=== PATIENT | male | born 1945 | race Caucasian/White ===

== ENCOUNTER 2017-12-24 13:48 | Emergency (ER) | payer MEDICARE ==
[2017-12-24 13:53] VITALS: RESP 18
--- NOTE | 2017-12-24 14:42 | ED ---
General Adult HPI - General Chief complaint: Skin/Abscess/Foreign Body Stated complaint: Male Time Seen by Provider: 12/24/17 13:54 Source: patient, RN notes reviewed, old records reviewed Mode of arrival: ambulatory Limitations: no limitations - History of Present Illness Initial comments: this patient is a 72-year-old male chief complaint of a rash over his entire body. He reports it's related to his chemotherapy treatment. His last chemo treatment was approximately three days ago. He states that he was told that he will get this acne like rash after his chemo treatments. Your ports it's become increasingly painful and his groin region. He states that he has noticed some drainage from the skin. - Related Data Home Medications Medication Instructions Recorded Confirmed Ergocalciferol (Vitamin D2) 50,000 unit PO WE 12/24/17 12/24/17 [Vitamin D2] Previous Rx's Medication Instructions Recorded Clindamycin Gel [Clindamycin 1 applic TOPICAL BID #60 gram 12/24/17 Phosphate] Doxycycline [Vibramycin] 100 mg PO Q12HR #28 capsule 12/24/17 Hydrocortisone Cream 1 applic TOPICAL BID #60 gm 12/24/17 [Hydrocortisone 1% Cream] Nystatin 100,000 Unit/gm Oint 1 applic TOPICAL TID #1 tube 12/24/17 [Mycostatin Oint] Nystatin 100,000 Unit/gm Powd 1 applic TOPICAL BID #60 gm 12/24/17 [Mycostatin Powder] Allergies Allergy/AdvReac Type Severity Reaction Status Date / Time No Known Allergies Allergy Verified 12/24/17 14:28 Review of Systems ROS Statement: Those systems with pertinent positive or pertinent negative responses have been documented in the HPI. ROS Other: All systems not noted in ROS Statement are negative. Past Medical History Past Medical History: Cancer Additional Past Medical History / Comment(s): colon, mets to lungs History of Any Multi-Drug Resistant Organisms: None Reported Additional Past Surgical History / Comment(s): 2016 colon cancer Past Anesthesia/Blood Transfusion Reactions: No Reported Reaction Past Psychological History: No Psychological Hx Reported Smoking Status: Former smoker Past Alcohol Use History: None Reported Past Drug Use History: None Reported General Exam - General Exam Comments Initial Comments: Patient is a 72 year old male, no distress. Limitations: no limitations General appearance: alert, in no apparent distress Head exam: Present: atraumatic, normocephalic, normal inspection Eye exam: Present: normal appearance, PERRL, EOMI. Absent: scleral icterus, conjunctival injection, periorbital swelling ENT exam: Present: normal exam, mucous membranes moist Neck exam: Present: normal inspection. Absent: tenderness, meningismus, lymphadenopathy Respiratory exam: Present: normal lung sounds bilaterally. Absent: respiratory distress, wheezes, rales, rhonchi, stridor Cardiovascular Exam: Present: regular rate, normal rhythm, normal heart sounds. Absent: systolic murmur, diastolic murmur, rubs, gallop, clicks GI/Abdominal exam: Present: soft, normal bowel sounds. Absent: distended, tenderness, guarding, rebound, rigid Back exam: Present: normal inspection Neurological exam: Present: alert, oriented X3, CN II-XII intact Psychiatric exam: Present: normal affect, normal mood Skin exam: Present: warm, dry, intact, normal color, rash (acneiform rash over face, arms, and legs. patient has beefy red erythematous rash over grion. Patient has some drainage from groin. Appears similiar to candidial infection. ) Course Vital Signs 12/24/17 12/24/17 13:49 14:49 Temperature 98.7 F 100.3 F H Pulse Rate 107 H 91 Respiratory 18 18 Rate Blood Pressure 159/77 116/55 O2 Sat by Pulse 100 98 Oximetry Medical Decision Making - Medical Decision Making this patient is a 72-year-old male chief complaint of a rash over his entire body. He reports it's related to his chemotherapy treatment, and a side affect is acneiform rash. He has what appears to be yeast infection in groin as well. Wound culture obtained. Patient is on palizumab and this is a common reaction. Patient will be treated with clindamycin cream, nystatin cream and hydrocortizone cream. He has follow up appt with PCP on monday. Discussed follow up and keep skin dry. Return parameters discussed. Disposition Clinical Impression: Acneiform drug eruption Disposition: HOME SELF-CARE Condition: Good Instructions: Acute Rash (ED) Additional Instructions: Follow-up on Monday with Yadi Montaño. Patient should use the antibiotic clindamycin and the steroid cream as directed. He should also plan to use the antifungal powder within the groin as well as using ointment. Return to the emergency department if any alarming signs or symptoms occur. Prescriptions: Clindamycin Gel [Clindamycin Phosphate] 1 applic TOPICAL BID #60 gram Doxycycline [Vibramycin] 100 mg PO Q12HR #28 capsule Hydrocortisone Cream [Hydrocortisone 1% Cream] 1 applic TOPICAL BID #60 gm Nystatin 100,000 Unit/gm Oint [Mycostatin Oint] 1 applic TOPICAL TID #1 tube Nystatin 100,000 Unit/gm Powd [Mycostatin Powder] 1 applic TOPICAL BID #60 gm Referrals: Pato Robb MD [Primary Care Provider] - 1-2 days Time of Disposition: 14:37
[2017-12-24 14:50] VITALS: BP 116/55; PULSE 91; TEMP 100.3
== END 2017-12-24 14:50 | disposition home or self-care (01) ==
LOC: EC 13:48
DX: L27.0 Generalized skin eruption due to drugs and medicaments taken internally (principal); T45.1X5A Adverse effect of antineoplastic and immunosuppressive drugs, initial encounter; C78.02 Secondary malignant neoplasm of left lung; C78.01 Secondary malignant neoplasm of right lung; Z87.891 Personal history of nicotine dependence; Z79.899 Other long term (current) drug therapy; Z85.038 Personal history of other malignant neoplasm of large intestine; Z98.890 Other specified postprocedural states
CPT/HCPCS: 87070; 87205; 99284

== ENCOUNTER 2018-04-13 16:46 | Inpatient (IN) | payer MEDICARE ==
[2018-04-13 17:49] LABS: Creatine Kinase 44 U/L (55-170); INR 1.2 (<1.2); Partial Thromboplastin Time 24.8 sec (22.0-30.0); Prothrombin Time 11.1 sec (9.0-12.0)
--- NOTE | 2018-04-13 17:50 | ED ---
General Adult HPI - General Chief complaint: Syncope Stated complaint: SYNCOPE Time Seen by Provider: 04/13/18 17:16 Source: patient, RN notes reviewed, old records reviewed Mode of arrival: wheelchair Limitations: no limitations - History of Present Illness Initial comments: 73-year-old male presents for fever and multiple syncopal episodes. Patient is currently being treated for metastatic colon cancer. Last chemotherapy was approximately 2 weeks ago. He states he passed out 3 or 4 times today. He has felt lightheaded. No chest pain or shortness of breath. No cough. No nausea or vomiting. He has had some diarrhea. He is told to take an antibiotic for prophylaxis of urinary tract infection as he did have a cystoscopy approximately 2 days ago. He has not taken this medication. Patient denies any pain complaints the time my evaluation. He does report fever and chills. - Related Data Home Medications Medication Instructions Recorded Confirmed Tamsulosin HCl [Flomax] 0.4 mg PO BID 03/23/18 04/13/18 Ciprofloxacin HCl [Cipro] 250 mg PO Q12HR 04/13/18 04/13/18 Allergies Allergy/AdvReac Type Severity Reaction Status Date / Time No Known Allergies Allergy Verified 04/13/18 17:29 Review of Systems ROS Statement: Those systems with pertinent positive or pertinent negative responses have been documented in the HPI. ROS Other: All systems not noted in ROS Statement are negative. Past Medical History Past Medical History: Cancer Additional Past Medical History / Comment(s): colon, mets to lungs. Pt. presently has indwelling catheter as of 03-29-18 History of Any Multi-Drug Resistant Organisms: None Reported Additional Past Surgical History / Comment(s): 2016 colon cancer Past Anesthesia/Blood Transfusion Reactions: No Reported Reaction Past Psychological History: No Psychological Hx Reported Smoking Status: Former smoker Past Alcohol Use History: None Reported Past Drug Use History: None Reported General Exam Limitations: no limitations General appearance: alert, in no apparent distress Head exam: Present: atraumatic, normocephalic Eye exam: Present: normal appearance, PERRL ENT exam: Present: mucous membranes dry Neck exam: Present: normal inspection. Absent: tenderness, meningismus Respiratory exam: Present: normal lung sounds bilaterally. Absent: respiratory distress Cardiovascular Exam: Present: normal rhythm, tachycardia GI/Abdominal exam: Present: soft. Absent: distended, tenderness, guarding Extremities exam: Present: normal inspection, full ROM, normal capillary refill. Absent: pedal edema, calf tenderness Neurological exam: Present: alert, oriented X3, CN II-XII intact. Absent: motor sensory deficit Psychiatric exam: Present: normal affect, normal mood Skin exam: Present: warm, dry, intact. Absent: cyanosis, diaphoretic Course Vital Signs 04/13/18 04/13/18 04/13/18 17:09 18:08 19:08 Temperature 102.6 F H 101.6 F H Pulse Rate 115 H 105 H 84 Respiratory 18 20 18 Rate Blood Pressure 110/63 144/70 95/57 O2 Sat by Pulse 97 99 98 Oximetry 04/13/18 20:00 Temperature 100.4 F H Pulse Rate 70 Respiratory 16 Rate Blood Pressure 103/56 O2 Sat by Pulse 98 Oximetry Medical Decision Making - Medical Decision Making 73-year-old male with syncopal episodes likely secondary to hypotension from infection. Patient is febrile and tachycardic on initial presentation. He is currently on chemotherapy. Laboratory studies obtained, there is leukocytosis at 13.3, hemoglobin prior 0.2. CMP is unremarkable. Urinalysis is positive for UTI. Chest x-ray negative for focal pneumonia. Given the patient's current medical problems and the fact that he is on chemo, he will be For IV antibiotics awaiting blood culture and urine culture. - Lab Data Result diagrams: 04/13/18 17:28 04/13/18 17:28 Lab Results 04/13/18 04/13/18 04/13/18 Range/Units 17:28 17:28 17:28 WBC 13.3 H (3.8-10.6) k/uL RBC 4.03 L (4.30-5.90) m/uL Hgb 12.2 L (13.0-17.5) gm/dL Hct 36.8 L (39.0-53.0) % MCV 91.3 (80.0-100.0) fL MCH 30.2 (25.0-35.0) pg MCHC 33.1 (31.0-37.0) g/dL RDW 15.0 (11.5-15.5) % Plt Count 227 (150-450) k/uL Neutrophils % 90 % Lymphocytes % 4 % Monocytes % 5 % Eosinophils % 0 % Basophils % 0 % Neutrophils # 12.0 H (1.3-7.7) k/uL Lymphocytes # 0.5 L (1.0-4.8) k/uL Monocytes # 0.6 (0-1.0) k/uL Eosinophils # 0.0 (0-0.7) k/uL Basophils # 0.0 (0-0.2) k/uL PT (9.0-12.0) sec INR (<1.2) APTT (22.0-30.0) sec Sodium 137 (137-145) mmol/L Potassium 3.5 (3.5-5.1) mmol/L Chloride 101 (98-107) mmol/L Carbon Dioxide 22 (22-30) mmol/L Anion Gap 14 mmol/L BUN 12 (9-20) mg/dL Creatinine 1.10 (0.66-1.25) mg/dL Est GFR (CKD-EPI)AfAm 77 (>60 ml/min/1.73 sqM) Est GFR (CKD-EPI)NonAf 66 (>60 ml/min/1.73 sqM) Glucose 112 H (74-99) mg/dL Plasma Lactic Acid Vamsi (0.7-2.0) mmol/L Calcium 8.9 (8.4-10.2) mg/dL Magnesium 1.3 L (1.6-2.3) mg/dL Total Bilirubin 1.1 (0.2-1.3) mg/dL AST 43 (17-59) U/L ALT 55 (21-72) U/L Alkaline Phosphatase 194 H (38-126) U/L Total Creatine Kinase 44 L (55-170) U/L CK-MB (CK-2) 0.3 (0.0-2.4) ng/mL CK-MB (CK-2) Rel Index 0.7 Troponin I <0.012 (0.000-0.034) ng/mL Total Protein 6.2 L (6.3-8.2) g/dL Albumin 3.7 (3.5-5.0) g/dL Urine Color Urine Appearance (Clear) Urine pH (5.0-8.0) Ur Specific [place] (1.001-1.035) Urine Protein (Negative) Urine Glucose (UA) (Negative) Urine Ketones (Negative) Urine Blood (Negative) Urine Nitrite (Negative) Urine Bilirubin (Negative) Urine Urobilinogen (<2.0) mg/dL Ur Leukocyte Esterase (Negative) Urine WBC (0-5) /hpf Urine WBC Clumps (None) /hpf Urine Bacteria (None) /hpf Urine Mucus (None) /hpf 04/13/18 04/13/18 04/13/18 Range/Units 17:28 17:28 18:03 WBC (3.8-10.6) k/uL RBC (4.30-5.90) m/uL Hgb (13.0-17.5) gm/dL Hct (39.0-53.0) % MCV (80.0-100.0) fL MCH (25.0-35.0) pg MCHC (31.0-37.0) g/dL RDW (11.5-15.5) % Plt Count (150-450) k/uL Neutrophils % % Lymphocytes % % Monocytes % % Eosinophils % % Basophils % % Neutrophils # (1.3-7.7) k/uL Lymphocytes # (1.0-4.8) k/uL Monocytes # (0-1.0) k/uL Eosinophils # (0-0.7) k/uL Basophils # (0-0.2) k/uL PT 11.1 (9.0-12.0) sec INR 1.2 H (<1.2) APTT 24.8 (22.0-30.0) sec Sodium (137-145) mmol/L Potassium (3.5-5.1) mmol/L Chloride (98-107) mmol/L Carbon Dioxide (22-30) mmol/L Anion Gap mmol/L BUN (9-20) mg/dL Creatinine (0.66-1.25) mg/dL Est GFR (CKD-EPI)AfAm (>60 ml/min/1.73 sqM) Est GFR (CKD-EPI)NonAf (>60 ml/min/1.73 sqM) Glucose (74-99) mg/dL Plasma Lactic Acid Vamsi 1.0 (0.7-2.0) mmol/L Calcium (8.4-10.2) mg/dL Magnesium (1.6-2.3) mg/dL Total Bilirubin (0.2-1.3) mg/dL AST (17-59) U/L ALT (21-72) U/L Alkaline Phosphatase (38-126) U/L Total Creatine Kinase (55-170) U/L CK-MB (CK-2) (0.0-2.4) ng/mL CK-MB (CK-2) Rel Index Troponin I (0.000-0.034) ng/mL Total Protein (6.3-8.2) g/dL Albumin (3.5-5.0) g/dL Urine Color Yellow Urine Appearance Cloudy (Clear) Urine pH 6.0 (5.0-8.0) Ur Specific [place] 1.009 (1.001-1.035) Urine Protein Trace H (Negative) Urine Glucose (UA) Negative (Negative) Urine Ketones Negative (Negative) Urine Blood Moderate H (Negative) Urine Nitrite Negative (Negative) Urine Bilirubin Negative (Negative) Urine Urobilinogen <2.0 (<2.0) mg/dL Ur Leukocyte Esterase Large H (Negative) Urine WBC >182 H (0-5) /hpf Urine WBC Clumps Moderate H (None) /hpf Urine Bacteria Many H (None) /hpf Urine Mucus Rare H (None) /hpf Disposition Clinical Impression: Sepsis, UTI (urinary tract infection), Dehydration Disposition: ADMITTED IP TO THIS [facility] Condition: Stable Is patient prescribed a controlled substance at d/c from ED?: No Referrals: Ptao Robb MD [Primary Care Provider] - 1-2 days Decision to Admit Reason: Admit from EC Decision Date: 04/13/18 Decision Time: 20:23
[2018-04-13 17:51] LABS: Albumin 3.7 g/dL (3.5-5.0); Calcium 8.9 mg/dL (8.4-10.2); Magnesium 1.3 mg/dL (1.6-2.3); Potassium 3.5 mmol/L (3.5-5.1); Total Bilirubin 1.1 mg/dL (0.2-1.3); Total Protein 6.2 g/dL (6.3-8.2)
[2018-04-13] MEDS ORDERED: ACETAMINOPHEN TAB 500 MG TAB PO STA (17:51)
[2018-04-13] MEDS ORDERED: SODIUM CHLORIDE 0.9% 1,000 ML IV ONE (17:51)
--- NOTE | 2018-04-13 17:57 | XR ---
EXAMINATION TYPE: XR chest 2V DATE OF EXAM: 04/13/2018 COMPARISON: NONE HISTORY: Fever and syncope TECHNIQUE: Frontal and lateral views of the chest are obtained. FINDINGS: Heart and mediastinum are normal. Lungs are clear. Diaphragm is normal. There is right guera tral venous catheter with tip in the superior vena cava. There are chest leads. Bony thorax shows 25% anterior wedging of T6 vertebra. IMPRESSION: No active cardiopulmonary disease. I see no evidence of bronchopneumonia.
[2018-04-13 17:58] LABS: Basophils % (A) 0 %; Eosinophils % (A) 0 %; HCT 36.8 % (39.0-53.0); HGB 12.2 gm/dL (13.0-17.5); Lymphocytes # (A) 0.5 k/uL (1.0-4.8); Lymphocytes % (A) 4 %; MCH 30.2 pg (25.0-35.0); MCHC 33.1 g/dL (31.0-37.0); MCV 91.3 fL (80.0-100.0); Mean Platelet Volume 6.9; Monocytes # (A) 0.6 k/uL (0-1.0); Monocytes % (A) 5 %; Neutrophils % (A) 90 %; Platelet Count 227 k/uL (150-450); RBC 4.03 m/uL (4.30-5.90); WBC 13.3 k/uL (3.8-10.6)
[2018-04-13 18:11] LABS: Creatine Kinase MB 0.3 ng/mL (0.0-2.4); Troponin I <0.012 ng/mL (0.000-0.034)
[2018-04-13 18:52] LABS: Appearance,Urine Cloudy (Clear); Bacteria,Urine Many /hpf; Bilirubin,Urine Negative (Negative); Blood,Urine Moderate (Negative); Color,Urine Yellow; Glucose,Urine (UA) Negative (Negative); Ketones,Urine Negative (Negative); Leukocyte Esterase,Urine Large (Negative); Mucus,Urine Rare /hpf; Nitrite,Urine Negative (Negative); Protein,Urine Trace (Negative); Specific Gravity,Urine 1.009 (1.001-1.035); Urobilinogen,Urine <2.0 mg/dL (<2.0); WBC,Urine >182 /hpf (0-5)
[2018-04-13] MEDS ORDERED: SODIUM CHLORIDE 0.9% 500 ML IV ONE (19:50)
[2018-04-13] MEDS ORDERED: MAGNESIUM SULFATE-D5W PMX 1 GM in DEXTROSE/WATER 1 100ML.BAG IVPB ONE (19:50)
[2018-04-13] MEDS ORDERED: cefTRIAXone IN SWFI 1,000 MG/10 ML SYRINGE IVP STA (19:52)
[2018-04-13] MEDS ORDERED: MORPHINE SULFATE 4 MG/ML SYRINGE IV PRN (20:19)
[2018-04-13] MEDS ORDERED: ONDANSETRON 4 MG/2 ML VIAL IVP PRN (20:19)
[2018-04-13] MEDS ORDERED: ACETAMINOPHEN TAB 325 MG TAB PO PRN (20:19)
[2018-04-13] MEDS ORDERED: NALOXONE 0.4 MG/ML 1 ML VIAL IV PRN (20:19)
[2018-04-13] MEDS ORDERED: ALPRAZolam 0.25 MG TAB PO PRN (21:17)
[2018-04-13] MEDS ORDERED: HYDROcodone/APAP 5-325MG 1 EACH TAB PO PRN (21:17)
[2018-04-13] MEDS ORDERED: TEMAZEPAM 15 MG CAP PO PRN (21:17)
--- NOTE | 2018-04-13 22:00 | HP ---
HISTORY AND PHYSICAL CHIEF COMPLAINT: Syncope. HISTORY OF PRESENT ILLNESS: This 73-year-old gentleman with advanced colon cancer with metastases and also indwelling Koehler catheter is receiving chemotherapy from Dr. Pyle. Apparently the chemotherapy could not be done today because of the increased WBC. Patient was running fever. Patient has repeated falls. Because of multiple falls, the patient was taken to [facility] and admitted for further evaluation and treatment. There is no history of any headache. No history of any chest pain or palpitation at this time. PAST MEDICAL HISTORY: 1. Colon cancer with metastases, on chemotherapy. 2. History of urinary retention. MEDICATIONS: 1. Cipro 250 mg b.i.d. 2. Flomax 0.4 b.i.d. ALLERGIES: NONE. FAMILY HISTORY: No history of heart disease or strokes in the family. SOCIAL HISTORY: Previous history of smoking. No history of alcohol intake. REVIEW OF SYSTEMS: ENT: Diminished hearing. Diminished vision. CARDIOVASCULAR SYSTEM: No angina, palpitations. RESPIRATORY SYSTEM: No cough, hemoptysis. GI: No nausea, vomiting. : As mentioned earlier. NERVOUS SYSTEM: As mentioned earlier. ALLERGY/IMMUNOLOGY: No asthma, hayfever. MUSCULOSKELETAL: As mentioned earlier. HEMATOLOGY/ONCOLOGY: As mentioned earlier. ENDOCRINE: No history of diabetes, hypothyroidism. CONSTITUTIONAL: As mentioned earlier. DERMATOLOGY: Negative. RHEUMATOLOGY: Negative. PSYCHIATRY: As mentioned earlier. PHYSICAL EXAMINATION: Alert, oriented x3. Pulse 70, blood pressure 103/56, respiration 16, temperature 100.4, pulse ox 98% on 2 L. HEENT: Conjunctivae normal. Oral mucosa moist. NECK: No jugular venous distention. No carotid bruit. No lymph node enlargement. CARDIOVASCULAR SYSTEM: S1, S2 muffled. No S3. No S4. RESPIRATORY SYSTEM: Breath sounds diminished at the bases. A few scattered rhonchi and crackles. ABDOMEN: Soft, non-tender. No mass palpable. LEGS: No edema. No swelling. NERVOUS SYSTEM: Higher functions as mentioned earlier. Moves all 4 limbs. No focal motor or sensory deficit. LYMPHATICS: No lymph node palpable in neck, axillae or groin. SKIN: No ulcer, rash, bleeding. LABS: WBC 13.3, hemoglobin 12.2, and magnesium is 1.3. UA noted. The chest x-ray was reviewed and showed no acute abnormality. ASSESSMENT: 1. Acute urinary tract infection with sepsis secondary to indwelling Koehler catheter. 2. Increased white count. 3. Colon cancer with metastases. 4. Indwelling Koehler catheter. 5. Anemia, normocytic; anemia of chronic disease. 6. Hypomagnesemia. 7. FULL CODE. RECOMMENDATIONS AND DISCUSSION: In this 73-year-old gentleman who presented with multiple complex medical issues, we will monitor the patient closely, continue the current medications, continue with symptomatic treatment. Will initiate the patient on Rocephin. Obtain cultures. Resume the DVT prophylaxis. Proton pump inhibitors. Resume home medications. Guarded prognosis because of multiple complex medical issues. Dr. Pyle will be consulted. Further recommendations to follow. MMODL / IJN: [id number] /
[2018-04-13] MEDS: SODIUM CHLORIDE 0.9% 1,000 ML IV SCH (22:04)
[2018-04-14 07:21] LABS: ALT 44 U/L (21-72); AST 25 U/L (17-59); Albumin 2.8 g/dL (3.5-5.0); Alkaline Phosphatase 145 U/L (38-126); Anion Gap 11 mmol/L; Blood Urea Nitrogen 9 mg/dL (9-20); Calcium 8.3 mg/dL (8.4-10.2); Carbon Dioxide 22 mmol/L (22-30); Chloride 110 mmol/L (98-107); Glucose 92 mg/dL (74-99); Potassium 3.4 mmol/L (3.5-5.1); Sodium 143 mmol/L (137-145); Total Bilirubin 1.3 mg/dL (0.2-1.3)
[2018-04-14 07:32] LABS: Basophils % (A) 0 %; Eosinophils % (A) 0 %; HCT 33.6 % (39.0-53.0); HGB 10.9 gm/dL (13.0-17.5); Lymphocytes # (A) 1.1 k/uL (1.0-4.8); Lymphocytes % (A) 11 %; MCH 30.5 pg (25.0-35.0); MCHC 32.4 g/dL (31.0-37.0); MCV 94.2 fL (80.0-100.0); Mean Platelet Volume 6.6; Monocytes # (A) 0.6 k/uL (0-1.0); Monocytes % (A) 6 %; Neutrophils # (A) 8.1 k/uL (1.3-7.7); Neutrophils % (A) 81 %; Platelet Count 185 k/uL (150-450); RBC 3.57 m/uL (4.30-5.90); RDW 15.2 % (11.5-15.5); WBC 10.1 k/uL (3.8-10.6)
[2018-04-14] MEDS: cefTRIAXone IN SWFI 1,000 MG/10 ML SYRINGE IVP SCH (08:21)
[2018-04-14] MEDS: PANTOPRAZOLE 40 MG TABLET PO SCH (08:21)
[2018-04-14] MEDS: HEPARIN SODIUM,PORCINE 5,000 UNIT/ML 1 ML VIAL SQ SCH ×2 (08:22→21:40)
[2018-04-14] MEDS: SODIUM CHLORIDE 0.9% 1,000 ML IV SCH ×2 (10:45→11:12)
[2018-04-14] MEDS ORDERED: Potassium Replacement Protocol 1 EACH MISC MISCELLANE PRN (12:56)
[2018-04-14] MEDS: POTASSIUM CHLORIDE ER 20 MEQ TAB.ER PO SCH ×2 (13:46→14:43)
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
[2018-04-14] MEDS ORDERED: LIDOCAINE-PRILOCAINE 2.5-2.5% CREAM 5 GM TUBE TOPICAL STA (16:46)
--- NOTE | 2018-04-14 18:16 | PN ---
PROGRESS NOTE DATE OF SERVICE: 04/14/2018. This 73-year-old gentleman admitted with syncope, also had a UTI with sepsis secondary to a Koehler catheter. Patient on broad-spectrum IV antibiotics. The patient also had metastatic colon cancer. Hematology/Oncology is also following the patient closely. The cultures are negative so far. EXAM: Alert and oriented x3. Pulse 65 blood pressure 140/68, respirations 18, temperature 97.4, pulse ox 100% on room air. HEENT: Conjunctivae normal. NECK: No jugular venous distention. CARDIOVASCULAR: S1, S2 muffled. RESPIRATORY: Breath sounds diminished in the bases. A few scattered rhonchi. ABDOMEN: Soft, nontender. NERVOUS SYSTEM: No focal motor or sensory deficits. LABS: WBC 10, hemoglobin is 10.9. Potassium 3.4. UA noted. ASSESSMENT: 1. Acute urinary tract infection with sepsis secondary to indwelling Koehler catheter. 2. Increased WBC. 3. Hypokalemia. 4. Colon cancer with metastasis. 5. Indwelling Koehler catheter. 6. Anemia, normocytic anemia of chronic disease. 7. Hypomagnesemia. 8. FULL CODE. RECOMMENDATIONS AND DISCUSSION: I recommend to continue current medical management and symptomatic treatment. Otherwise at this time continue with IV antibiotics, follow cultures. Further recommendations to follow. The patient's is also admitted in the hospital at the current time. MMODL / IJN: [id number] /
--- NOTE | 2018-04-14 18:43 | CT ---
EXAMINATION TYPE: CT ChestAbdPelvis wo con DATE OF EXAM: 04/14/2018 COMPARISON: NONE HISTORY: complains of pelvic pressure. History of colon cancer CT DLP: 444.7 mGycm. Automated Exposure Control for Dose Reduction was Utilized. TECHNIQUE: CT scan of the thorax, abdomen and pelvis is performed without IV contrast. FINDINGS: LUNGS: There are numerous bilateral pulmonary nodules scattered throughout all lobes of the lungs. Th e largest of these are seen within the right upper lobe on series 4 image 17 measuring 1.7 x 1.5 cm a nd the largest in the right lower lobe measures 1.1 x 0.9 cm. No focal consolidation or pleural effus ion is seen. Pneumothorax. The tracheobronchial tree is patent. MEDIASTINUM: There are no greater than 1 cm hilar or mediastinal lymph nodes. No pericardial effusi on is seen. Few coronary artery calcifications are present. There is a right-sided MediPort present t erminating in the cavoatrial junction. OTHER: Minimal bilateral retroareolar gynecomastia is seen. There is a very small hiatal hernia prese nt. LIVER/GB: Unenhanced liver is of normal morphology. No discrete hepatic lesions are identified. PANCREAS: No significant abnormality is seen. SPLEEN: No significant abnormality is seen. ADRENALS: No significant abnormality is seen. KIDNEYS/URINARY BLADDER/PROSTATE: There is a 2 mm nonobstructing left upper pole renal calculus. Ther e is mild left hydronephrosis, however no obstructing calculus is seen. Urinary bladder is grossly di stended to the level of the umbilicus and the prostate gland is diffusely heterogenous and enlarged p ossibly relating to bladder outlet obstruction. BOWEL: No significant abnormality is seen. No dilation of large or small bowel. LYMPH NODES: No greater than 1cm abdominal or pelvic lymph nodes are appreciated. OSSEOUS STRUCTURES: There is a grade 1 anterolisthesis of L3 on L4, likely on a degenerative basis. M ild degenerative changes of the lumbosacral junction are seen. There is a grade 1 retrolisthesis of L 5 on S1. OTHER: Diastases recti and a left paracentral small fat filled ventral hernia are noted. IMPRESSION: 1. Numerous bilateral pulmonary nodule within all pulmonary lobes compatible with metastasis with the largest in the right lung apex measuring up to 1.7 x 1.5 cm. 2. Mild left hydroureteronephrosis without visualized obstructing calculus. There may be a nonradiopa que obstructing calculus. Alternatively the urinary bladder is grossly distended and there is diffuse enlargement and heterogeneity of the prostate gland. Therefore or ureteral nephrosis could relate to vesicoureteral reflux and urinary bladder outlet obstruction.
[2018-04-14] MEDS ORDERED: TAMSULOSIN 0.4 MG CAP.ER.24H PO SCH (18:49)
[2018-04-15 06:06] VITALS: RESP 16
[2018-04-15 07:27] LABS: Anion Gap 13 mmol/L; Blood Urea Nitrogen 7 mg/dL (9-20); Calcium 8.7 mg/dL (8.4-10.2); Carbon Dioxide 22 mmol/L (22-30); Chloride 111 mmol/L (98-107); Glucose 93 mg/dL (74-99); Potassium 3.7 mmol/L (3.5-5.1); Sodium 146 mmol/L (137-145)
[2018-04-15] MEDS: PANTOPRAZOLE 40 MG TABLET PO SCH (08:07)
[2018-04-15] MEDS: HEPARIN SODIUM,PORCINE 5,000 UNIT/ML 1 ML VIAL SQ SCH ×2 (08:07→19:43)
[2018-04-15] MEDS: TAMSULOSIN 0.4 MG CAP.ER.24H PO SCH ×2 (08:07→19:43)
[2018-04-15] MEDS: cefTRIAXone IN SWFI 1,000 MG/10 ML SYRINGE IVP SCH (08:07)
--- NOTE | 2018-04-15 17:59 | PN ---
PROGRESS NOTE DATE OF SERVICE: 04/15/2018 INTERVAL HISTORY: This is a 73-year-old gentleman who was admitted with acute urinary tract infection and sepsis secondary to indwelling Koehler catheter. He is improving significantly. No chest pain. No palpitations. No fever. After Flomax, the patient is able to void. The urine culture showing Staph. Final ID is pending at this time. No chest pain. No palpitations. No fever. EXAM: Alert and oriented times three. Pulse 63, blood pressure 102/60, respiration 18, temperature 97.2, pulse ox 100% on room air. EYES: Conjunctivae normal. NECK: No JVD. CARDIAC: Diminished breath sounds at the bases. LUNGS: A few scattered rhonchi. No crackles. Abdomen is soft, nontender. No mass. LEGS: No edema. NEURO: No focal deficits. LABORATORY DATA: WBC 10.9, hemoglobin 10.9, sodium 146 ASSESSMENT: 1. Acute urinary tract infection with sepsis secondary to indwelling Koehler catheter. 2. Increased WBC. 3. Hypokalemia. 4. Colon cancer with mets. 5. Indwelling Koehler catheter with possible BPH. 6. Anemia, normocytic anemia of chronic disease. 7. Hypomagnesemia. 8. Full code. RECOMMENDATIONS: Recommend to continue current management, continue symptomatic treatment. Otherwise, at this time I recommend continue the current antibiotics and await final reports. Guarded prognosis because of multiple complex medical issues. Further recommendations to follow. MMODL / IJN: [id number] /
[2018-04-16 06:31] VITALS: TEMP 97.1
[2018-04-16 07:18] LABS: Anion Gap 11 mmol/L; Blood Urea Nitrogen 5 mg/dL (9-20); Calcium 9.1 mg/dL (8.4-10.2); Carbon Dioxide 25 mmol/L (22-30); Chloride 108 mmol/L (98-107); Glucose 92 mg/dL (74-99); Potassium 3.8 mmol/L (3.5-5.1); Sodium 144 mmol/L (137-145)
[2018-04-16] MEDS: HEPARIN SODIUM,PORCINE 5,000 UNIT/ML 1 ML VIAL SQ SCH (07:36)
[2018-04-16] MEDS: cefTRIAXone IN SWFI 1,000 MG/10 ML SYRINGE IVP SCH (07:37)
[2018-04-16] MEDS: TAMSULOSIN 0.4 MG CAP.ER.24H PO SCH (07:37)
[2018-04-16] MEDS: PANTOPRAZOLE 40 MG TABLET PO SCH (07:37)
[2018-04-16 10:43] VITALS: BP 107/64; PULSE 64
--- NOTE | 2018-04-17 06:22 | DS ---
DISCHARGE SUMMARY DATE OF SERVICE: 04/16/2018 FINAL DIAGNOSES: 1. Acute urinary tract infection with possible sepsis secondary to indwelling Koehler catheter. 2. Increased WBC. 3. Hypokalemia. 4. Colon cancer with METS. 5. Possible benign prostatic hypertrophy. 6. Anemia, normocytic anemia of chronic disease. 7. Hypomagnesemia. 8. FULL CODE. DISCHARGE DISPOSITION: Patient is being discharged in stable condition with guarded prognosis. HISTORY OF PRESENT ILLNESS: This 73-year-old gentleman with a past medical history of multiple medical problems, admitted to the hospital with UTI and sepsis. Patient was treated symptomatically, improved significantly. Culture showed only Staph epi. The white count normalized. On exam, vital signs stable. Cardio system: S1, S2. Abdomen soft. Central nervous system: No focal deficits. DISCHARGE INSTRUCTIONS: 1. Discharge diet is cardiac diet. 2. Activity limited until followup. 3. Follow up with primary physician in 2-3 days. 4. Follow up with the urology as advised. MEDICATIONS: 1. Tylenol 650 q.6h p.r.n. 2. Ceftin 500 mg p.o. b.i.d. for 4 days. 3. Flomax 0.4 b.i.d. Once again, the patient is being discharged in stable condition with guarded prognosis. MMODL / IJN: [id number] /
== END 2018-04-16 11:20 | disposition home or self-care (01) | DRG 698 ==
LOC: SUPCPDRO 16:46 → EC 16:46 → 5ONC 20:20
PROVIDERS: ADMIT Hospitalist; ATTEND Hospitalist
DX: T83.511A Infection and inflammatory reaction due to indwelling urethral catheter, initial encounter (principal); A41.1 Sepsis due to other specified staphylococcus; C78.00 Secondary malignant neoplasm of unspecified lung; Y73.1 Therapeutic (nonsurgical) and rehabilitative gastroenterology and urology devices associated with adverse incidents; N39.0 Urinary tract infection, site not specified; E83.42 Hypomagnesemia; D63.8 Anemia in other chronic diseases classified elsewhere; E87.6 Hypokalemia; E86.0 Dehydration; R29.6 Repeated falls; W19.XXXA Unspecified fall, initial encounter; Z85.038 Personal history of other malignant neoplasm of large intestine; Z87.891 Personal history of nicotine dependence; Z92.21 Personal history of antineoplastic chemotherapy; Z82.5 Family history of asthma and other chronic lower respiratory diseases; Z86.14 Personal history of Methicillin resistant Staphylococcus aureus infection
CPT/HCPCS: 36415; 36591; 71046; 71250; 74176; 80048; 80053; 81001; 82550; 82553; 83605; 83735; 84484; 85025; 85610; 85730; 87040; 87077; 87086; 87186; 93005; 94760; 96361; 96365; 96367; 96375; 99285

== ENCOUNTER → 2018-06-15 | Outpatient (CLI) | payer MEDICARE ==
--- NOTE | 2018-06-15 16:20 | CT ---
EXAMINATION TYPE: CT ChestAbdPelvis w con DATE OF EXAM: 06/15/2018 INDICATION: Colon cancer COMPARISON: 04/14/2018 CT DLP: 1121 mGycm CONTRAST: Performed with Oral Contrast and with IV Contrast, patient injected with 100 mL of Isovue 300. TECHNIQUE: Axial images at 5 mm thick sections. Reconstructed images in the coronal plane. Delayed images through the kidneys. FINDINGS: CT CHEST: Portion of the thyroid visualized is normal. Multiple bilateral lung nodules are scattered through the mid and upper lung sepulveda. Larger periphera l nodule measuring 1.1 cm was present previously and irregular lobular density in the periphery of th e right upper lobe currently measures 1.8 cm. This is estimated to measure 1.6 cm previously. No enlarged mediastinal or hilar adenopathy is evident. Couple of small pretracheal lymph nodes are p resent. The ascending aorta diameter at the level of the main pulmonary artery is 3.4 cm. The main pulmonary artery diameter at the bifurcation is 2.[address] ABDOMEN: Liver: Normal Spleen: Normal Pancreas: Normal Adrenal glands: The adrenal glands are normal. Gallbladder: Normal Kidneys: No masses are evident. No hydronephrosis is present. No cysts are present. Delayed images were obtained through the kidneys, which remain unremarkable. Aorta: Vascular calcification is within the aorta. Inferior vena cava: Normal. CT PELVIS: Loops of bowel within the abdomen and pelvis are normal. There are loops of bowel which are incom pletely distended or lack oral contrast limiting their evaluation. Appendix: Not clearly visualized. What may be the appendix near the cecum is nondilated and contains contrast. No suspicious inflammatory changes or dilated tubular structures are evident. Urinary bladder: Some subtle asymmetric thickening of the right urinary bladder wall may be present. Genitourinary structures: Prostate is prominent contains calcification. Osseous structures: No suspicious lytic or sclerotic lesions. IMPRESSIONS: 1. There may be some subtle enlargement of a larger nodules. The largest lesion has increased from 1 .6 cm to 1.8 cm. 2. New nodules are not clearly identified. No new areas suspicious for metastatic disease are evident . 3. There may be some subtle diffuse wall thickening of the right urinary bladder wall.
== END ==
LOC: RADCTMAIN 11:02
PROVIDERS: ATTEND Internal Medicine Hematology & Oncology
DX: Z03.89 Encounter for observation for other suspected diseases and conditions ruled out (principal); C18.0 Malignant neoplasm of cecum
CPT/HCPCS: 82565; 84520; 71260; 74177; 36415; Q9967

== ENCOUNTER 2018-07-24 17:48 | Inpatient (IN) | payer MEDICARE ==
[2018-07-24] MEDS ORDERED: ONDANSETRON 4 MG/2 ML VIAL IVP STA (18:30)
[2018-07-24] MEDS ORDERED: SODIUM CHLORIDE 0.9% 1,000 ML IV STA (18:30)
[2018-07-24] MEDS ORDERED: MORPHINE SULFATE 4 MG/ML SYRINGE IV STA (18:30)
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
--- NOTE | 2018-07-24 19:18 | US ---
EXAMINATION TYPE: US scrotum with doppler. Grayscale and color Doppler Duplex imaging performed of t hannah scrotum. DATE OF EXAM: 07/24/2018 COMPARISON: NONE CLINICAL HISTORY: Pain. Pain EXAM MEASUREMENTS: TESTICLES: Right Testicle: 3.2 x 2.3 x 2.7 cm Left Testicle: 3.6 x 1.7 x 3.2 cm EPIDIDYMIS HEAD: Right Epididymis: .7 x .5 x .9 cm Left Epididymis: .9 x .9 x .5 cm .3cm cyst seen Doppler performed to assess for testicular vascularity; good bilateral color flow and waveforms are s een. There is no evidence of testicular torsion. Presence of hydroceles: No Presence of varicoceles: Mild prominence on the left noted. IMPRESSION: NO ACUTE PROCESS.
[2018-07-24 19:55] LABS: Basophils % (A) 0 %; Eosinophils % (A) 0 %; HCT 40.7 % (39.0-53.0); HGB 12.9 gm/dL (13.0-17.5); Lymphocytes # (A) 0.8 k/uL (1.0-4.8); Lymphocytes % (A) 6 %; MCH 30.6 pg (25.0-35.0); MCHC 31.7 g/dL (31.0-37.0); MCV 96.5 fL (80.0-100.0); Mean Platelet Volume 7.2; Monocytes # (A) 0.8 k/uL (0-1.0); Monocytes % (A) 6 %; Neutrophils # (A) 11.4 k/uL (1.3-7.7); Neutrophils % (A) 86 %; Platelet Count 182 k/uL (150-450); RBC 4.22 m/uL (4.30-5.90); RDW 15.5 % (11.5-15.5); WBC 13.2 k/uL (3.8-10.6)
[2018-07-24 20:05] LABS: Albumin 3.7 g/dL (3.5-5.0); Calcium 8.8 mg/dL (8.4-10.2); INR 1.1 (<1.2); Partial Thromboplastin Time 25.9 sec (22.0-30.0); Potassium 4.3 mmol/L (3.5-5.1); Prothrombin Time 10.7 sec (9.0-12.0); Total Bilirubin 0.9 mg/dL (0.2-1.3); Total Protein 6.6 g/dL (6.3-8.2)
--- NOTE | 2018-07-24 21:02 | CT ---
EXAMINATION TYPE: CT abdomen pelvis w con DATE OF EXAM: 07/24/2018 COMPARISON: 06/16/2018 HISTORY: Abdominal pain; hx of colon CA CT DLP: 421.2 mGycm Automated exposure control for dose reduction was used. TECHNIQUE: Helical acquisition of images was performed from the lung bases through the pelvis. CONTRAST: Performed without Oral Contrast and with IV Contrast, patient injected with 80 mL of Isovue 300. FINDINGS: LUNG BASES: No significant abnormality is appreciated. LIVER/GB: No significant abnormality is appreciated. PANCREAS: No significant abnormality is seen. SPLEEN: No significant abnormality is seen. ADRENALS: No significant abnormality is seen. KIDNEYS, URETERS, URINARY BLADDER: Asymmetric nephrogram, with delayed excretion on the right and wit h new mild/moderate hydronephrosis and hydroureter. The hydroureter extends down to a position 2 cm p roximal to the right ureterovesical junction. There is no right ureteral calcification. No right som l calcification. The right perirenal space shows prominent reticular edematous change circumferential to the kidney, with a less-prominent periureteral edematous reticulation. Kidney is mildly A 2 mm no nobstructing left renal calcification is noted, the left collecting system is unremarkable. Urinary b ladder is mild moderately distended. Right lateral bladder wall thickness is more apparent than is th e left; this was seen on the prior study. PERITONEAL CAVITY: No free air is visualized. No peritoneal fluid. RETROPERITONEAL ADENOPATHY: None visualized REPRODUCTIVE ORGANS: No significant abnormality is seen PELVIC ADENOPATHY: None visualized. OSSEOUS STRUCTURES: No significant abnormality is seen. Prominent multilevel lumbar spondylosis bass ges are noted. BOWEL: No significant abnormality is seen. OTHER: The vasculature is unremarkable. IMPRESSION: NEW FINDING OF RIGHT-SIDED ACUTE OBSTRUCTIVE UROPATHY, MODERATE DEGREE WITH ETIOLOGY UNCLEAR.
[2018-07-24 22:12] LABS: Appearance,Urine Clear (Clear); Bilirubin,Urine Negative (Negative); Blood,Urine Moderate (Negative); Color,Urine Yellow; Glucose,Urine (UA) Negative (Negative); Ketones,Urine Negative (Negative); Leukocyte Esterase,Urine Trace (Negative); Mucus,Urine Rare /hpf; Nitrite,Urine Negative (Negative); Protein,Urine Negative (Negative); RBC,Urine 44 /hpf (0-5); Specific Gravity,Urine 1.024 (1.001-1.035); Urobilinogen,Urine <2.0 mg/dL (<2.0); WBC,Urine 12 /hpf (0-5)
[2018-07-24] MEDS ORDERED: NALOXONE 0.4 MG/ML 1 ML VIAL IV PRN (23:21)
[2018-07-24] MEDS ORDERED: ONDANSETRON 4 MG/2 ML VIAL IVP PRN (23:21)
[2018-07-24] MEDS ORDERED: cefTRIAXone IN SWFI 1,000 MG/10 ML SYRINGE IVP STA (23:25)
[2018-07-24] MEDS ORDERED: LEVOFLOXACIN 750MG-D5W PMX 750 MG in DEXTROSE/WATER 1 150ML.BAG IVPB STA (23:41)
[2018-07-25] MEDS: SODIUM CHLORIDE 0.9% 1,000 ML IV SCH (00:56)
[2018-07-25] MEDS ORDERED: cefTRIAXone IN SWFI 1,000 MG/10 ML SYRINGE IVP SCH (09:00)
[2018-07-25] MEDS: TAMSULOSIN 0.4 MG CAP.ER.24H PO SCH ×2 (09:57→21:04)
[2018-07-25 10:04] LABS: Basophils % (A) 0 %; Eosinophils % (A) 0 %; HCT 38.8 % (39.0-53.0); HGB 12.3 gm/dL (13.0-17.5); Lymphocytes # (A) 0.6 k/uL (1.0-4.8); Lymphocytes % (A) 5 %; MCH 30.4 pg (25.0-35.0); MCHC 31.6 g/dL (31.0-37.0); MCV 96.2 fL (80.0-100.0); Mean Platelet Volume 7.2; Monocytes # (A) 0.7 k/uL (0-1.0); Monocytes % (A) 5 %; Neutrophils # (A) 11.3 k/uL (1.3-7.7); Neutrophils % (A) 89 %; Platelet Count 169 k/uL (150-450); RBC 4.04 m/uL (4.30-5.90); RDW 15.2 % (11.5-15.5); WBC 12.7 k/uL (3.8-10.6)
[2018-07-25 10:21] LABS: Albumin 3.1 g/dL (3.5-5.0); Calcium 8.6 mg/dL (8.4-10.2); Potassium 4.1 mmol/L (3.5-5.1); Total Protein 5.9 g/dL (6.3-8.2)
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
--- NOTE | 2018-07-25 13:01 | HP ---
HISTORY AND PHYSICAL CHIEF COMPLAINT: Abdominal pain. HISTORY OF PRESENT ILLNESS: This gentleman is being treated for metastatic CA of the colon and is getting chemo. He came in because of increased abdominal pain with cramping and in the emergency room it was determined that it looked as though he was developing ureteral obstruction. He also was having a lot of discomfort in the testicles. His original resection was 2 years ago and he has had an appendectomy. He is admitted for further evaluation of the pain and to ensure that his ureteral obstruction would be treated. REVIEW OF SYSTEMS: He denies any headaches, shortness of breath, cough, hemoptysis, heart disease, nausea, hematemesis, melena, hematochezia, etc. Laboratory studies revealed a white count of 13.2 and hemoglobin of 12.9. BUN is 20 and creatinine 1.5. Alk phos was elevated at 164. Past medical history, family history and personal and social histories reveals he is not allergic to any medication. At home, he has been on Flomax 0.4 b.i.d. and Tylenol. Otherwise, there are no complaints. PHYSICAL EXAM: Temperature is 99.7. Pulse is 81, respirations are 20 and blood pressure is 126/65. In general, he appeared to be somewhat chronically ill in appearance and slightly pale. Head, ears, eyes, nose, mouth, and throat were normal. Neck veins are not distended. The chest is clear. Cardiac exam demonstrates sinus rhythm. The abdomen is slightly protuberant and had generalized mild tenderness. Bowel sounds were present. Extremities were normal. IMPRESSION: 1. Abdominal pain. 2. Metastatic carcinoma of the colon. 3. Possible ureteral obstruction. PLAN: 1. Bed rest. 2. IV fluids. 3. Consult with Urology and Oncology. MMODL / IJN: [id number] /
[2018-07-25] MEDS: MORPHINE SULFATE 4 MG/ML SYRINGE IV PRN (18:18)
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
[2018-07-26] MEDS: ACETAMINOPHEN TAB 325 MG TAB PO PRN ×3 (00:45→23:35)
[2018-07-26] MEDS: SODIUM CHLORIDE 0.9% 1,000 ML IV SCH ×2 (06:07→23:36)
--- NOTE | 2018-07-26 06:37 | P.PN ---
Subjective Progress Note Date: 07/26/18 The patient is in the hospital with right flank pain which is now gone. He was identified to have new onset right sided hydronephrosis. His creatinine is gone from normal to 1.5 and repeat at 1.65. I spoke with Dr. Pyle. This is most likely due to his metastatic colon cancer. I will place a double-J catheter to maintain good kidney function and protect the right kidney while he continues to get chemotherapy. The patient is in agreement with this. Objective - Vital Signs Vital signs: Vital Signs Temp 100.2 F H 07/26/18 01:46 Pulse 79 07/25/18 23:50 Resp 20 07/25/18 23:50 BP 112/63 07/25/18 23:50 Pulse Ox 94 L 07/25/18 23:50 Intake & Output 07/25/18 07/25/18 07/26/18 06:59 18:59 06:59 Intake Total 240 Balance 240 Weight 64.5 kg Intake: Oral 240 Other: Voiding Method Toilet Toilet Toilet # Voids 1 2 1 # Bowel Movements 0 - Labs CBC & Chem 7: 07/25/18 09:18 07/25/18 09:18 Labs: Abnormal Lab Results - Last 24 Hours (Table) 07/25/18 07/25/18 Range/Units 09:18 09:18 WBC 12.7 H (3.8-10.6) k/uL RBC 4.04 L (4.30-5.90) m/uL Hgb 12.3 L (13.0-17.5) gm/dL Hct 38.8 L (39.0-53.0) % Neutrophils # 11.3 H (1.3-7.7) k/uL Lymphocytes # 0.6 L (1.0-4.8) k/uL Creatinine 1.65 H (0.66-1.25) mg/dL Glucose 113 H (74-99) mg/dL Total Bilirubin 2.0 H (0.2-1.3) mg/dL Total Protein 5.9 L (6.3-8.2) g/dL Albumin 3.1 L (3.5-5.0) g/dL Microbiology - Last 24 Hours (Table) 07/24/18 19:30 Blood Culture - Preliminary Blood No Growth after 24 hours 07/24/18 23:54 Urine Culture - Preliminary Urine,Voided
[2018-07-26] MEDS: TAMSULOSIN 0.4 MG CAP.ER.24H PO SCH ×2 (08:52→20:10)
[2018-07-26] MEDS: MORPHINE SULFATE 4 MG/ML SYRINGE IV PRN (12:02)
--- NOTE | 2018-07-26 12:36 | PN ---
PROGRESS NOTE CHIEF COMPLAINT: Obstructive uropathy. HISTORY OF PRESENT ILLNESS: This gentleman developed a temperature last night. Source is unclear. He is going for stenting of the ureters either today or tomorrow. He has a persistent conjunctivitis in the right eye which is, apparently, related to chemotherapy. Other than that, he is doing well. He is not in a great deal of pain. PHYSICAL EXAM: The abdomen is soft and nontender. Chest is clear and cardiac exam is normal. He has a conjunctivitis on the right, which we will treat and we will wait for his cystoscopy and stenting. MMODL / IJN: [id number] /
[2018-07-26] MEDS ORDERED: fentaNYL (PF) 50 MCG/ML 2 ML AMP IV PRN (16:02)
[2018-07-26] MEDS ORDERED: DEXAMETHASONE SOD PHOSPHATE 10 MG/ML 1 ML VIAL IV ONE (16:02)
[2018-07-26] MEDS ORDERED: ONDANSETRON 4 MG/2 ML VIAL IVP ONE (16:02)
[2018-07-26] MEDS ORDERED: MIDAZOLAM 2 MG/2 ML VIAL IV PRN (16:02)
[2018-07-26] MEDS ORDERED: LIDOCAINE 1% 20 ML VIAL (10MG/ML) FOR IV START INTRADERMA PRN (16:02)
--- NOTE | 2018-07-26 18:35 | P.PN ---
Subjective Progress Note Date: 07/26/18 Principal diagnosis: unilateral hydronephrosis and metastatic colon cancer No acute events or complaints overnight Objective - Vital Signs Vital signs: Vital Signs Temp 100.3 F H 07/26/18 16:14 Pulse 87 07/26/18 17:32 Resp 17 07/26/18 15:00 BP 119/72 07/26/18 15:00 Pulse Ox 96 07/26/18 15:00 Intake & Output 07/25/18 07/26/18 07/26/18 18:59 06:59 18:59 Intake Total 240 320 Balance 240 320 Intake: Intake, IV Titration 100 Amount Sodium Chloride 0.9% 1, 100 000 ml @ 20 mls/hr IV . Q24H [facility] Rx#:[id number] Oral 240 220 Other: Voiding Method Toilet Toilet Toilet # Voids 2 1 4 # Bowel Movements 0 - Exam - Constitutional General appearance: cooperative, no acute distress - EENT Eyes: edentulous, normal appearance ENT: hard of hearing, NA/AT, normal oropharynx - Neck supple, trachea midlne Neck: normal ROM - Respiratory Respiratory: bilateral: CTA - Cardiovascular Rhythm: regular Heart sounds: normal: S1, S2 - Gastrointestinal General gastrointestinal: normal bowel sounds, soft, tenderness - Integumentary Integumentary: pale, rash - Neurologic Neurologic: CNII-XII intact - Musculoskeletal Musculoskeletal: generalized weakness, strength equal bilaterally - Psychiatric Psychiatric: A&O x's 3, appropriate affect, intact judgment & insight - Labs CBC & Chem 7: 07/25/18 09:18 07/25/18 09:18 Labs: Microbiology - Last 24 Hours (Table) 07/24/18 23:54 Urine Culture - Preliminary Urine,Voided Gram Neg Bacilli 07/24/18 19:30 Blood Culture - Preliminary Blood No Growth after 24 hours Assessment and Plan Plan: Assessment and Recommendations: 1. Metastatic Colon Cancer - Lung - last treatment June 23 - Concern for progression with unilateral hydronephrosis and increased discomfort - Check CEA 2. New-onset right hydronephrosis with right sided pain. - - Urology is following Oncology recs: continue supportive measures and acute problem defer to urology and IM Will follow along
[2018-07-26] MEDS ORDERED: LEVOFLOXACIN 750MG-D5W PMX 750 MG in DEXTROSE/WATER 1 150ML.BAG IVPB SCH (23:00)
[2018-07-27] MEDS: SODIUM CHLORIDE 0.9% 400 ML IV ONE ×2 (11:05→13:10)
[2018-07-27] MEDS ORDERED: MIDAZOLAM 2 MG/2 ML VIAL ONE (11:07)
[2018-07-27] MEDS ORDERED: fentaNYL (PF) 50 MCG/ML 2 ML AMP ONE (11:07)
[2018-07-27] MEDS ORDERED: PROPOFOL 10 MG/ML 20 ML VIAL IV ONE (11:07)
[2018-07-27] MEDS ORDERED: SODIUM CHLORIDE 0.9% 500 ML IV ONE (11:07)
[2018-07-27] MEDS ORDERED: IOPAMIDOL-370 50ML BTL MISCELLANE ONE (11:21)
[2018-07-27] MEDS ORDERED: LACTATED RINGERS 1,000 ML IV ONE (11:22)
--- NOTE | 2018-07-27 11:40 | P.OP ---
Date of Procedure: 07/27/18 Preoperative Diagnosis: Right ureteral obstruction, metastatic colon carcinoma Postoperative Diagnosis: Same Procedure(s) Performed: Cystoscopy, right retrograde pyelogram, placement of 6 x 24 double-J catheter Anesthesia: MAC Surgeon: Tanner Armijo Estimated Blood Loss (ml): 0 Pathology: none sent Condition: stable Disposition: PACU Indications for Procedure: The patient is a 73-year-old gentleman with metastatic colon carcinoma on chemotherapy. He developed right-sided abdominal pain. Computed tomography scan showed unilateral right ureteral obstruction without calcification. He comes for cystoscopy retrograde pyelogram and stent placement his creatinine several weeks ago is normal and is now 1.6. Description of Procedure: The patient is brought to the operating suite. He's placed on the operating table in the supine position. He is given IV sedation. He is prepped and draped sterilely. Cystoscopy with a Foroblique lens and 22-Gu[place]alan sheath identifies a normal urethra. There is a mild proximal bulbar urethral stricture easily traversed with the 20-Gu[place] cystoscope. The prostate is not obstructing. The bladder gaming inspected and is normal. The right ureteral orifice is identified and intubated with an 8 cone-tip catheter. A retrograde pyelogram shows a very tight stricture, extrinsic in the ureter just proximal to the ureteral vesicle junction. An 035 wires passed with some difficulty through the ureter up into the renal pelvis. Over the wires passed a 6 x 24 double-J catheter that coils in the renal pelvis and in the bladder. Then of the procedure the bladder strain the patient's awakened and returned recovery room good condition The patient will continue with his chemotherapy. He'll need a stent exchange in approximately 3 months.
[2018-07-27] MEDS: LACTATED RINGERS 1,000 ML IV SCH ×2 (13:08→17:27)
[2018-07-27] MEDS: TAMSULOSIN 0.4 MG CAP.ER.24H PO SCH ×2 (13:09→22:27)
--- NOTE | 2018-07-27 13:18 | FL ---
Fluoroscopy INDICATION: Pain FINDINGS: Fluoroscopy time: 51 seconds. Images obtained: 2. IMPRESSIONS: 1. Documentation of fluoroscopy.
[2018-07-27 13:33] LABS: Basophils % (A) 0 %; Eosinophils # (A) 0.1 k/uL (0-0.7); Eosinophils % (A) 1 %; HCT 41.4 % (39.0-53.0); HGB 12.8 gm/dL (13.0-17.5); Hypochromasia Slight; Lymphocytes # (A) 0.7 k/uL (1.0-4.8); Lymphocytes % (A) 9 %; MCH 30.4 pg (25.0-35.0); MCHC 30.8 g/dL (31.0-37.0); MCV 98.5 fL (80.0-100.0); Mean Platelet Volume 7.3; Monocytes # (A) 0.4 k/uL (0-1.0); Monocytes % (A) 5 %; Neutrophils # (A) 6.4 k/uL (1.3-7.7); Neutrophils % (A) 83 %; Platelet Count 176 k/uL (150-450); RBC 4.21 m/uL (4.30-5.90); RDW 15.1 % (11.5-15.5); WBC 7.7 k/uL (3.8-10.6)
[2018-07-27 14:14] LABS: Albumin 3.3 g/dL (3.5-5.0); Calcium 9.2 mg/dL (8.4-10.2); Potassium 4.4 mmol/L (3.5-5.1); Total Bilirubin 1.1 mg/dL (0.2-1.3); Total Protein 6.4 g/dL (6.3-8.2)
[2018-07-27 14:59] VITALS: RESP 20
--- NOTE | 2018-07-27 19:43 | P.PN ---
Subjective Progress Note Date: 07/27/18 Principal diagnosis: unilateral hydronephrosis and metastatic colon cancer No acute events or complaints overnight he is status post cystoscopy, right retrograde catheter Objective - Vital Signs Vital signs: Vital Signs Temp 98.4 F 07/27/18 14:59 Pulse 63 07/27/18 17:58 Resp 20 07/27/18 14:59 BP 106/62 07/27/18 14:59 Pulse Ox 92 L 07/27/18 14:59 Intake & Output 07/27/18 07/27/18 07/28/18 06:59 18:59 06:59 Intake Total 1060 Balance 1060 Intake: IV 700 Intake, IV Titration 160 Amount Lactated Ringers 1,000 ml 160 @ 20 mls/hr IV .Q24H [facility] Rx#:[id number] Oral 200 Other: Voiding Method Toilet Toilet # Voids 3 - Exam - Constitutional General appearance: cooperative, no acute distress - EENT Eyes: edentulous, normal appearance ENT: hard of hearing, NA/AT, normal oropharynx - Neck supple, trachea midlne Neck: normal ROM - Respiratory Respiratory: bilateral: CTA - Cardiovascular Rhythm: regular Heart sounds: normal: S1, S2 - Gastrointestinal General gastrointestinal: normal bowel sounds, soft, tenderness - Integumentary Integumentary: pale, rash - Neurologic Neurologic: CNII-XII intact - Musculoskeletal Musculoskeletal: generalized weakness, strength equal bilaterally - Psychiatric Psychiatric: A&O x's 3, appropriate affect, intact judgment & insight - Labs CBC & Chem 7: 07/27/18 13:11 07/27/18 13:11 Labs: Abnormal Lab Results - Last 24 Hours (Table) 07/27/18 07/27/18 Range/Units 13:11 13:11 RBC 4.21 L (4.30-5.90) m/uL Hgb 12.8 L (13.0-17.5) gm/dL MCHC 30.8 L (31.0-37.0) g/dL Lymphocytes # 0.7 L (1.0-4.8) k/uL Creatinine 1.79 H (0.66-1.25) mg/dL Glucose 101 H (74-99) mg/dL Alkaline Phosphatase 270 H (38-126) U/L Albumin 3.3 L (3.5-5.0) g/dL Microbiology - Last 24 Hours (Table) 07/26/18 15:19 Blood Culture - Preliminary Blood No Growth after 24 hours 07/26/18 15:14 Blood Culture - Preliminary Blood No Growth after 24 hours 07/24/18 23:54 Urine Culture - Final Urine,Voided Pseudomonas aeruginosa 07/24/18 19:30 Blood Culture - Preliminary Blood No Growth after 48 hours Assessment and Plan Plan: Assessment and Recommendations: 1. Metastatic Colon Cancer - Lung - last treatment June 23 - Concern for progression with unilateral hydronephrosis and increased discomfort - Check CEA 2. New-onset right hydronephrosis with right sided pain. - - Urology is following Status post cystoscopy, right retrograde pyelogram, placement catheter tolerated well, family at bedside, questions answered Oncology recs: continue supportive measures and acute problem defer to urology and IM Will follow along
[2018-07-27] MEDS: ACETAMINOPHEN TAB 325 MG TAB PO PRN (23:47)
[2018-07-28] MEDS: SODIUM CHLORIDE 0.9% 1,000 ML IV SCH (00:40)
[2018-07-28 06:29] VITALS: BP 103/58; PULSE 64; TEMP 98.1
[2018-07-28] MEDS: TAMSULOSIN 0.4 MG CAP.ER.24H PO SCH (08:35)
--- NOTE | 2018-07-28 11:21 | P.PN ---
Subjective Progress Note Date: 07/28/18 The patient has metastatic colon cancer. He underwent placement of a double-J catheter on the right yesterday for ureteral obstruction most likely secondary to the colon cancer. This was uneventful. From a urologic standpoint we will see him in the office in a week or 10 days and then he will probably have a stent change in about 3 months. Objective - Vital Signs Vital signs: Vital Signs Temp 98.1 F 07/28/18 06:00 Pulse 64 07/28/18 06:00 Resp 20 07/28/18 06:00 BP 103/58 07/28/18 06:00 Pulse Ox 96 07/28/18 06:00 Intake & Output 07/27/18 07/28/18 07/28/18 18:59 06:59 18:59 Intake Total 1060 300 240 Balance 1060 300 240 Weight 64.5 kg Intake: IV 700 Intake, IV Titration 160 Amount Lactated Ringers 1,000 ml 160 @ 20 mls/hr IV .Q24H [facility] Rx#:[id number] Oral 200 300 240 Other: Voiding Method Toilet Toilet # Voids 1 1 # Bowel Movements 0 0 - Labs CBC & Chem 7: 07/27/18 13:11 07/27/18 13:11 Labs: Abnormal Lab Results - Last 24 Hours (Table) 07/27/18 07/27/18 Range/Units 13:11 13:11 RBC 4.21 L (4.30-5.90) m/uL Hgb 12.8 L (13.0-17.5) gm/dL MCHC 30.8 L (31.0-37.0) g/dL Lymphocytes # 0.7 L (1.0-4.8) k/uL Creatinine 1.79 H (0.66-1.25) mg/dL Glucose 101 H (74-99) mg/dL Alkaline Phosphatase 270 H (38-126) U/L Albumin 3.3 L (3.5-5.0) g/dL Microbiology - Last 24 Hours (Table) 07/24/18 19:30 Blood Culture - Preliminary Blood No Growth after 72 hours 07/26/18 15:19 Blood Culture - Preliminary Blood No Growth after 24 hours 07/26/18 15:14 Blood Culture - Preliminary Blood No Growth after 24 hours 07/24/18 23:54 Urine Culture - Final Urine,Voided Pseudomonas aeruginosa
--- NOTE | 2018-07-29 05:11 | DS ---
DISCHARGE SUMMARY CHIEF COMPLAINT: Abdominal pain and obstructive uropathy. HISTORY OF PRESENT ILLNESS AND PHYSICAL EXAM: The details of this man's history and physical can be found in the initial workup. LABORATORY STUDIES: While he was in a hospital he had laboratory studies, details which can be found in the laboratory section of chart. COURSE IN HOSPITAL: After admission he was placed on bedrest, started on intravenous fluids and seen by Urology. Arrangements were made for him to have cystoscopy and stent placement. This was done and it is felt that he could go home on the . He will follow up either with us or his own physician and will continue his oncology followup. FINAL DIAGNOSES: 1. Obstructive ureteropathy. 2. Carcinoma of the colon. 3. Abdominal pain. OPERATIONS: Cystoscopy and stent placement. CONSULTATIONS: Oncology and urology. He is improved. MMODL / IJN: [id number] /
== END 2018-07-28 13:47 | disposition home health service (06) | DRG 375 ==
LOC: EC 17:48 → 4MS4W 07-25 00:07
PROVIDERS: ADMIT Family Medicine; ATTEND Family Medicine
PROC: 0T768DZ Dilation of Right Ureter with Intraluminal Device, Via Natural or Artificial Opening Endoscopic (ICD-10-PCS; principal; 2018-07-27 11:00)
DX: C18.9 Malignant neoplasm of colon, unspecified (principal); C78.00 Secondary malignant neoplasm of unspecified lung; N13.30 Unspecified hydronephrosis; Z86.14 Personal history of Methicillin resistant Staphylococcus aureus infection; H10.9 Unspecified conjunctivitis; N40.0 Benign prostatic hyperplasia without lower urinary tract symptoms; T45.1X5A Adverse effect of antineoplastic and immunosuppressive drugs, initial encounter; Z82.5 Family history of asthma and other chronic lower respiratory diseases; Z87.891 Personal history of nicotine dependence; Z90.49 Acquired absence of other specified parts of digestive tract; Z79.899 Other long term (current) drug therapy
CPT/HCPCS: 36415; 74177; 74420; 76870; 80053; 81001; 82150; 82378; 83605; 83690; 85025; 85610; 85730; 87040; 87077; 87086; 87186; 93975; 96361; 96365; 96375; 99285

== ENCOUNTER 2018-10-06 14:10 | Inpatient (IN) | payer MEDICARE ==
[2018-10-06] MEDS ORDERED: ONDANSETRON 4 MG/2 ML VIAL IVP STA (14:31)
[2018-10-06] MEDS ORDERED: MORPHINE SULFATE 4 MG/ML SYRINGE IV STA (14:31)
[2018-10-06] MEDS ORDERED: SODIUM CHLORIDE 0.9% 1,000 ML IV STA (14:31)
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
[2018-10-06 15:16] LABS: Basophils % (A) 0 %; Eosinophils # (A) 0.1 k/uL (0-0.7); Eosinophils % (A) 1 %; HCT 43.4 % (39.0-53.0); HGB 14.2 gm/dL (13.0-17.5); Lymphocytes # (A) 1.7 k/uL (1.0-4.8); Lymphocytes % (A) 17 %; MCH 30.6 pg (25.0-35.0); MCHC 32.6 g/dL (31.0-37.0); MCV 93.8 fL (80.0-100.0); Mean Platelet Volume 6.7; Monocytes # (A) 0.5 k/uL (0-1.0); Monocytes % (A) 5 %; Neutrophils # (A) 7.5 k/uL (1.3-7.7); Neutrophils % (A) 75 %; Platelet Count 199 k/uL (150-450); RBC 4.63 m/uL (4.30-5.90)
[2018-10-06 15:27] LABS: Albumin 4.3 g/dL (3.5-5.0); Calcium 10.2 mg/dL (8.4-10.2); Potassium 4.8 mmol/L (3.5-5.1); Total Bilirubin 0.8 mg/dL (0.2-1.3); Total Protein 7.7 g/dL (6.3-8.2)
[2018-10-06 15:30] LABS: Partial Thromboplastin Time 23.6 sec (22.0-30.0); Prothrombin Time 10.1 sec (9.0-12.0)
--- NOTE | 2018-10-06 16:48 | CT ---
EXAMINATION TYPE: CT abdomen pelvis w con DATE OF EXAM: 10/06/2018 COMPARISON: 07/24/2018 HISTORY: Epigastric pain with nausea and vomiting. Known colon carcinoma. CT DLP: 677.3 mGycm Automated exposure control for dose reduction was used. TECHNIQUE: Helical acquisition of images was performed from the lung bases through the pelvis. CONTRAST: Performed without Oral Contrast and with IV Contrast, patient injected with 80 mL of Isovue M300. FINDINGS: LUNG BASES: Bibasilar subsegmental atelectasis. Additionally there are at least 12 pulmonary nodules at the lung bases with the largest on the right measuring 1.0 cm. Again these are compatible with the patient's known metastatic colon carcinoma LIVER/GB: There is mild intrahepatic and extra hepatic biliary ductal dilatation that is similar to t he prior exam. Gallbladder displays no evidence of radiopaque gallstones. PANCREAS: No significant abnormality is seen. SPLEEN: No significant abnormality is seen. ADRENALS: No nodularity or thickening. KIDNEYS: There is a new right ureteral stent has been placed in the interim, appearing appropriately placed with mild persistent right hydronephrosis. There is a nonobstructing 3 mm left upper pole som l calculus. Kidneys enhance symmetrically. FREE AIR: No free air is visualized. ADENOPATHY: No greater than 1 cm short axis lymph node is seen in the abdomen or pelvis. URINARY BLADDER: Ureteral stent coils within the right ureterovesicular junction. OSSEOUS STRUCTURES: Visible degenerative changes of the spine are present. Again there is grade 1 an terolisthesis of L3 on L4 and grade 1 retrolisthesis of L5 on S1. BOWEL: There are multiple loops of dilated small bowel demonstrating air-fluid levels are centralize d within the abdomen measuring up to 4.1 cm. There is partial colonic resection of the right hemicolo n. Anastomotic site is seen on the right. No definitive focal burden peaking transition point is seen however there is decompressed bowel loops within the right lower quadrant and right midabdomen. OTHER: Moderate calcific and noncalcific atheromatous changes are seen of the abdominal aorta and its branches. IMPRESSION: FINDINGS SUGGESTING EITHER HIGH-GRADE PARTIAL SMALL BOWEL OBSTRUCTION OR EARLY COMPLETE SMALL BOWEL O BSTRUCTION THERE ARE NUMEROUS DECOMPRESSED SMALL BOWEL LOOPS IN THE RIGHT LOWER QUADRANT WITH NO F OCAL TRANSITION POINT IDENTIFIED. PULMONARY METASTATIC DISEASE IS AGAIN APPRECIATED.
[2018-10-06 17:00] LABS: Appearance,Urine Clear (Clear); Bilirubin,Urine Negative (Negative); Blood,Urine Moderate (Negative); Color,Urine Yellow; Glucose,Urine (UA) Negative (Negative); Ketones,Urine Negative (Negative); Leukocyte Esterase,Urine Moderate (Negative); Mucus,Urine Rare /hpf; Nitrite,Urine Negative (Negative); PH, Urine 6.5 (5.0-8.0); Protein,Urine 1+ (Negative); RBC,Urine 64 /hpf (0-5); Specific Gravity,Urine 1.022 (1.001-1.035); Urobilinogen,Urine <2.0 mg/dL (<2.0); WBC,Urine 22 /hpf (0-5)
[2018-10-06] MEDS ORDERED: ONDANSETRON 4 MG/2 ML VIAL IVP PRN (17:28)
[2018-10-06] MEDS ORDERED: MORPHINE SULFATE 4 MG/ML SYRINGE IV PRN (17:28)
[2018-10-06] MEDS ORDERED: NALOXONE 0.4 MG/ML 1 ML VIAL IV PRN (17:28)
[2018-10-06] MEDS: SODIUM CHLORIDE 0.9% 1,000 ML IV SCH (18:03)
[2018-10-06] MEDS ORDERED: ERGOCALCIFEROL 50,000 UNIT CAP PO SCH (21:00)
--- NOTE | 2018-10-06 21:43 | XR ---
EXAMINATION TYPE: XR abdomen 2V DATE OF EXAM: 10/06/2018 9:31 PM CLINICAL HISTORY: Abdominal pain. Small bowel obstruction. TECHNIQUE: Single supine KUB image of the abdomen is obtained. COMPARISON: CT abdomen pelvis of earlier on the same date FINDINGS: Right ureteral stent is in place. There is a right-sided Mediport partially visualized. The numerous loops of dilated small bowel appear less conspicuous than on the recent CT. Surgical suture s noted within the right mid abdomen. Air is seen within the rectum. Degenerative changes of the lumb osacral junction and femoral acetabular joints are present. There are few dilated loops of small souleymane l within the midabdomen and left paracentral abdomen. The lung bases are clear and the osseous struct ures are intact. IMPRESSION: Agree of bowel dilatation appears less impressive radiographically than it appears on the CT of the same date. Only few dilated loops of small bowel are appreciated. Progress exams are recom mended.
[2018-10-07 00:23] VITALS: BMI 24.7
[2018-10-07] MEDS: SODIUM CHLORIDE 0.9% 1,000 ML IV SCH ×2 (03:43→14:13)
--- NOTE | 2018-10-07 06:35 | XR ---
EXAMINATION TYPE: XR abdomen 2V , 2 VIEWS DATE OF EXAM ORDERED: 10/07/2018 HISTORY: Small bowel obstruction. COMPARISON: Previous study dated 10/06/2018. FINDINGS: A double-J stent is in place on the right. The lung bases are clear. Within the abdomen, the abdominal gas pattern is normal. There is no evidence of obstruction or free air. There is contrast within the bladder from a recent CT scan of the abdomen and pelvis dated 10/06. IMPRESSION: 1. STATUS POST DOUBLE-J STENT ON THE RIGHT. 2. NO ACUTE INTRA-ABDOMINAL ABNORMALITY.
[2018-10-07] MEDS: TAMSULOSIN 0.4 MG CAP.ER.24H PO SCH (07:32)
[2018-10-07] MEDS: PANTOPRAZOLE 40 MG/10 ML VIAL IV SCH (07:32)
[2018-10-07] MEDS ORDERED: INFLUENZA VACCINE (6 MOS+) 60 MCG/0.5 ML SYRINGE IM ONE (07:38)
--- NOTE | 2018-10-07 08:17 | HP ---
HISTORY AND PHYSICAL CHIEF COMPLAINT: A 73-year-old white male with history of colon cancer, metastases in the lung, developed bowel obstruction, nausea, vomiting. Came to the emergency room. CT scan showed a bowel obstruction. He refused NG tube. He is feeling better now. X-rays just done now shows a bowel obstruction is slightly improved. Home medications have been ordered. REVIEW OF SYSTEMS: Fourteen point review of systems negative except for mentioned in HPI. PHYSICAL EXAMINATION: Vital signs stable, afebrile. CARDIOVASCULAR: S1, S2. LUNGS: Clear. GI: Soft, increased bowel sounds. HEMATOLOGY: Negative Homans. PSYCH: Fair mood and affect. NEUROLOGIC: Alert and orient x3. ASSESSMENT: 1. Small-bowel obstruction. 2. Gastroesophageal reflux disease. 3. Benign prostatic hypertrophy. 4. Colon cancer, metastases into the lung. Surgical consult. Clear liquid diet will be attempted. Repeat x-rays in a.m. MMODL / ZEINABN: [id number] /
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
[2018-10-07] MEDS: HEPARIN SODIUM,PORCINE 5,000 UNIT/ML 1 ML VIAL SQ SCH (21:59)
--- NOTE | 2018-10-07 23:14 | PN ---
PROGRESS NOTE DATE OF SERVICE: 10/07/2018. HISTORY: He is able to have clear liquids at this time. He has less abdominal pain. He has not had a bowel movement yet, his last bowel movement was 48 hours ago. PHYSICAL EXAMINATION: Blood pressure is 128/70, respiratory rate of 16, pulse rate 51, temperature 97.7, O2 saturation on room air is 98%. HEENT is unremarkable. Chest is clear. Cardiovascular system is S1, S2. Abdomen is soft. There is no edema. IMPRESSION: 1. Abdominal pain with nausea and emesis, likely due to small bowel obstruction. 2. Dehydration. 3. Acute renal failure. 4. Colon cancer for which the patient is being followed by Oncology and Surgery. At this point in time, would advance his diet. Increase his activity level. Depending on how he does, we shall make further changes to his care. As he is less symptomatic, discharge planning is possibly for tomorrow if he is otherwise stable. MMODL / IJN: [id number] /
[2018-10-07 23:59] VITALS: RESP 18
[2018-10-08] MEDS: SODIUM CHLORIDE 0.9% 1,000 ML IV SCH ×2 (00:44→09:16)
[2018-10-08] MEDS: TAMSULOSIN 0.4 MG CAP.ER.24H PO SCH (09:16)
[2018-10-08] MEDS: HEPARIN SODIUM,PORCINE 5,000 UNIT/ML 1 ML VIAL SQ SCH (09:16)
[2018-10-08] MEDS: PANTOPRAZOLE 40 MG/10 ML VIAL IV SCH (09:16)
--- NOTE | 2018-10-08 10:07 | P.PN ---
Subjective Progress Note Date: 10/08/18 Principal diagnosis: Partial Versus Small Bowel Obstruction It appears his SBO has resolved on his own. He is overall doing better and tolerating PO intake. Objective - Vital Signs Vital signs: Vital Signs Temp 96.6 F L 10/08/18 07:00 Pulse 66 10/08/18 07:00 Resp 18 10/08/18 07:00 BP 127/61 10/08/18 07:00 Pulse Ox 97 10/08/18 07:00 Intake & Output 10/07/18 10/08/18 10/08/18 18:59 06:59 18:59 Intake Total 750 Balance 750 Intake: Oral 750 Other: Voiding Method Toilet # Voids 3 3 - Exam Constitutional General appearance: cooperative, no acute distress - EENT Eyes: edentulous, EOMI, poor dentition ENT: hard of hearing, NA/AT, normal oropharynx - Neck No lymphadenopathy Neck: normal ROM - Respiratory Respiratory: bilateral: CTA - Cardiovascular Rhythm: regular Heart sounds: normal: S1, S2 - Gastrointestinal General gastrointestinal: normal bowel sounds, soft, tenderness, ventral hernia - Integumentary Integumentary: pale - Neurologic Neurologic: CNII-XII intact - Musculoskeletal Musculoskeletal: gait normal, strength equal bilaterally, left sided weakness - Psychiatric Psychiatric: A&O x's 3, appropriate affect, intact judgment & insight - Labs CBC & Chem 7: 10/06/18 14:45 10/06/18 14:45 Labs: Microbiology - Last 24 Hours (Table) 10/06/18 16:42 Urine Culture - Final Urine,Voided Assessment and Plan Plan: Assessment and Recommendation: 1. Colon Cancer - Status Post Treatment with Chemo and Vectibix. - Make appointment to follow-up with Dr. Pyle in the next 2-4 weeks 2. Acute sharp abdominal pain and vomiting - [place] to be acute resolved incident causing a partial like obstruction in bowels. - Bloating and pain have resolved - Tolerating po intake - Ok for discharge from [facility] as it appears acute siutuation has resolved. Follow-up with Dr. Pyle as outpatient
[2018-10-08 15:10] VITALS: BP 146/61; PULSE 62; TEMP 97.5
== END 2018-10-08 17:07 | disposition home or self-care (01) | DRG 389 ==
LOC: EC 14:10 → 4MS4W 17:25
PROVIDERS: ADMIT Family Medicine; ATTEND Family Medicine
DX: K56.600 Partial intestinal obstruction, unspecified as to cause (principal); N17.9 Acute kidney failure, unspecified; C78.00 Secondary malignant neoplasm of unspecified lung; C77.2 Secondary and unspecified malignant neoplasm of intra-abdominal lymph nodes; C18.9 Malignant neoplasm of colon, unspecified; K21.9 Gastro-esophageal reflux disease without esophagitis; N40.0 Benign prostatic hyperplasia without lower urinary tract symptoms; E86.0 Dehydration; Z85.038 Personal history of other malignant neoplasm of large intestine; Z92.21 Personal history of antineoplastic chemotherapy; Z87.891 Personal history of nicotine dependence; Z79.899 Other long term (current) drug therapy
CPT/HCPCS: 36415; 74019; 74177; 80053; 81001; 82150; 83605; 83690; 84484; 85025; 85610; 85730; 87086; 90686; 93005; 96361; 96374; 96375; 99285

== ENCOUNTER → 2018-10-23 | Outpatient (CLI) | payer MEDICARE ==
--- NOTE | 2018-10-23 11:53 | XR ---
EXAMINATION TYPE: XR KUB DATE OF EXAM: 10/23/2018 HISTORY: Pain Comparison: 10/07/2018 Single KUB is submitted for interpretation. Findings: Right renal calculi: None Visualized. Right ureteral calculi: Double pigtail right ureteral stent is in place. Overall appearance is stable . No suspicious calcifications seen along the course of the stent. Left renal calculi: None Visualized. Left ureteral calculi: None Visualized. Pelvic calcifications: None Visualized. Bowel gas pattern is unremarkable. No free air. No mass effects. IMPRESSION: 1. Stable appearance of the abdomen.
== END ==
LOC: RADXRMAIN 11:18
PROVIDERS: ATTEND Urology
DX: N13.30 Unspecified hydronephrosis (principal)
CPT/HCPCS: 74018

== ENCOUNTER 2018-11-13 14:53 | Inpatient (IN) | payer MEDICARE ==
[2018-11-13] MEDS ORDERED: ONDANSETRON 4 MG/2 ML VIAL IVP STA (15:45)
[2018-11-13] MEDS ORDERED: SODIUM CHLORIDE 0.9% 1,000 ML IV STA (15:45)
[2018-11-13] MEDS ORDERED: SODIUM CHLORIDE 0.9% 500 ML 500 ML IV STA (15:45)
[2018-11-13] MEDS ORDERED: KETOROLAC 30 MG/ML 1 ML VIAL IVP STA (15:46)
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
[2018-11-13 16:08] LABS: Basophils % (A) 0 %; Eosinophils # (A) 0.2 k/uL (0-0.7); Eosinophils % (A) 2 %; HCT 46.3 % (39.0-53.0); HGB 15.2 gm/dL (13.0-17.5); Lymphocytes # (A) 1.5 k/uL (1.0-4.8); Lymphocytes % (A) 13 %; MCH 29.5 pg (25.0-35.0); MCHC 32.8 g/dL (31.0-37.0); Mean Platelet Volume 6.5; Monocytes # (A) 0.6 k/uL (0-1.0); Monocytes % (A) 5 %; Neutrophils # (A) 8.6 k/uL (1.3-7.7); Neutrophils % (A) 78 %; Platelet Count 216 k/uL (150-450); RBC 5.14 m/uL (4.30-5.90); RDW 13.2 % (11.5-15.5)
[2018-11-13 16:16] LABS: Albumin 4.5 g/dL (3.5-5.0); Calcium 10.2 mg/dL (8.4-10.2); Potassium 4.5 mmol/L (3.5-5.1); Total Bilirubin 0.6 mg/dL (0.2-1.3); Total Protein 7.7 g/dL (6.3-8.2)
[2018-11-13 16:18] LABS: Appearance,Urine Clear (Clear); Bacteria,Urine Rare /hpf; Bilirubin,Urine Negative (Negative); Blood,Urine Moderate (Negative); Color,Urine Yellow; Creatine Kinase 41 U/L (55-170); Glucose,Urine (UA) Negative (Negative); Ketones,Urine Negative (Negative); Leukocyte Esterase,Urine Small (Negative); Mucus,Urine Rare /hpf; Nitrite,Urine Negative (Negative); Protein,Urine 2+ (Negative); RBC,Urine 164 /hpf (0-5); Specific Gravity,Urine 1.013 (1.001-1.035); Urobilinogen,Urine <2.0 mg/dL (<2.0); WBC,Urine 5 /hpf (0-5)
[2018-11-13] MEDS ORDERED: SODIUM CHLORIDE 0.9% 2,000 ML IV ONE (16:29)
[2018-11-13 16:31] LABS: Creatine Kinase MB 0.7 ng/mL (0.0-2.4); Troponin I <0.012 ng/mL (0.000-0.034)
[2018-11-13] MEDS ORDERED: NALOXONE 0.4 MG/ML 1 ML VIAL IV PRN (16:31)
[2018-11-13] MEDS ORDERED: HYDROmorphone 0.5 MG/0.5 ML SYRINGE IVP PRN (16:31)
[2018-11-13] MEDS ORDERED: ONDANSETRON 4 MG/2 ML VIAL IVP PRN (16:31)
--- NOTE | 2018-11-13 16:31 | XR ---
EXAMINATION TYPE: XR KUB DATE OF EXAM: 11/13/2018 COMPARISON: 10/23/2018 HISTORY: Abdominal pain TECHNIQUE: Single view upright FINDINGS: There are dilated loops of air and fluid-filled small bowel in the mid abdomen. There is ri ght side ureteral stent noted. I see no sign of free air. Lung bases are clear. IMPRESSION: Dilated small bowel with fluid levels consistent with mechanical obstruction. This appear s new compared to last exam.
--- NOTE | 2018-11-13 17:04 | CT ---
EXAMINATION TYPE: CT abdomen pelvis wo con DATE OF EXAM: 11/13/2018 COMPARISON: 10/06/2018 HISTORY: pain CT DLP: 377.2 mGycm Automated exposure control for dose reduction was used. TECHNIQUE: Helical acquisition of images was performed from the lung bases through the pelvis. FINDINGS: There are noncalcified subpleural nodules at the posterior lung bases that measure up to 1 cm. There is no pleural effusion. Stomach appears normal. Spleen appears normal. There is no pancreatic mass. L iver shows no focal defect. Gallbladder is contracted. There are surgical clips at the hepatic flexur e of the colon. There are multiple dilated fluid-filled loops of small bowel in the mid abdomen. Distal small bowel i s also somewhat dilated. Small bowel measures up to 4 cm. There is no sign of free air. There is no a drenal mass. There is right-sided double-J ureteral stent. There is no hydronephrosis on the right side. There is left-sided hydronephrosis and hydroureter. There is Koehler catheter in the urinary bladder. There is 4 mm calculus posterior left kidney. There is no ascites. The bony structures are intact. There are spondylotic changes in the lower lumba r spine. I see no focal bone destruction. IMPRESSION: MULTIPLE DILATED SMALL BOWEL LOOPS CONSISTENT WITH MECHANICAL DISTAL SMALL BOWEL OBSTRUCTION. DILATED BOWEL APPEARS INCREASED SLIGHTLY COMPARED TO OLD CT SCAN. THERE IS NEW LEFT-SIDED HYDRONEPHROSIS AND HYDROURETER COMPARED TO OLD EXAM CONSISTENT WITH DISTAL OB STRUCTION. MULTIPLE LOWER LOBE SUBPLEURAL BILATERAL PULMONARY NODULES PROBABLY RELATED TO INFLAMMATORY DISEASE A ND NOT SIGNIFICANTLY DIFFERENT.
[2018-11-13] MEDS: 0.9% NACL WITH KCL 20 MEQ/L 1,000 ML IV SCH ×2 (18:22→23:31)
[2018-11-13] MEDS: PANTOPRAZOLE 40 MG/10 ML VIAL IV SCH (20:55)
[2018-11-14] MEDS: 0.9% NACL WITH KCL 20 MEQ/L 1,000 ML IV SCH ×2 (07:31→15:06)
[2018-11-14] MEDS: PANTOPRAZOLE 40 MG/10 ML VIAL IV SCH ×2 (07:31→19:32)
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
[2018-11-14 22:49] VITALS: TEMP 97.9
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
[2018-11-15 06:40] VITALS: BP 155/77; PULSE 56; RESP 15
[2018-11-15] MEDS: HEPARIN SODIUM,PORCINE 5,000 UNIT/ML 1 ML VIAL SQ SCH ×3 (08:09→08:12)
[2018-11-15] MEDS: PANTOPRAZOLE 40 MG/10 ML VIAL IV SCH (08:09)
[2018-11-15] MEDS: 0.9% NACL WITH KCL 20 MEQ/L 1,000 ML IV SCH ×2 (08:10)
[2018-11-15 10:11] LABS: Calcium 9.1 mg/dL (8.4-10.2); Potassium 5.6 mmol/L (3.5-5.1)
--- NOTE | 2018-11-15 12:05 | P.PN ---
Subjective Progress Note Date: 11/15/18 Pt seen and examined at bedside. Feeling better. No nausea/vomiting. Had 2 bowel movements last night. Objective - Vital Signs Vital signs: Vital Signs Temp 97.9 F 11/15/18 06:39 Pulse 56 L 11/15/18 06:39 Resp 15 11/15/18 06:39 BP 155/77 11/15/18 06:39 Pulse Ox 96 11/15/18 06:39 Intake & Output 11/14/18 11/15/18 11/15/18 18:59 06:59 18:59 Intake Total 300 240 Output Total 1100 Balance -800 240 Intake: Oral 300 240 Output: Urine 1100 Other: Voiding Method Indwelling Catheter Indwelling Catheter Indwelling Catheter # Bowel Movements 0 - Constitutional General appearance: Present: cooperative, no acute distress - EENT Eyes: Present: PERRLA - Respiratory Details: no difficulty with respiration - Gastrointestinal Gastrointestinal Comment(s): soft, NT, ND, no rebound, no guarding - Psychiatric Psychiatric: Present: A&O x's 3 - Labs CBC & Chem 7: 11/13/18 15:43 11/15/18 09:38 Labs: Abnormal Lab Results - Last 24 Hours (Table) 11/15/18 Range/Units 09:38 Potassium 5.6 H (3.5-5.1) mmol/L Chloride 116 H (98-107) mmol/L BUN 21 H (9-20) mg/dL Creatinine 2.03 H (0.66-1.25) mg/dL Glucose 111 H (74-99) mg/dL Assessment and Plan (1) SBO (small bowel obstruction) Narrative/Plan: 73-year-old male with small bowel obstruction, resolving - The patient states that his abdominal distention is greatly improved - Had 2 BMs last night - Advance diet as tolerated Current Visit: Yes Status: Acute Code(s): K56.609 - UNSP INTESTNL OBST, UNSP TO PARTIAL VERSUS COMPLETE OBST SNOMED Code(s): 859334846
[2018-11-15] MEDS ORDERED: SODIUM POLYSTYRENE SULFONATE 15 GM/60 ML BOTTLE PO STA (13:33)
--- NOTE | 2018-11-16 00:36 | P.DS ---
Providers Date of admission: 11/13/18 16:31 Expected date of discharge: 11/15/18 Attending physician: Anna Rodriguez Consults: 11/13/18 16:32 Consult Physician Routine Consulting Provider: Gia Damon Consult Reason/Comments: Small bowel obstruction Do you want consulting provider notified?: Yes Primary care physician: Stated None Hospital Course: Discharge diagnosis Acute recurrent small bowel obstruction. Resolved Acute on chronic kidney disease stage III Mild hyperkalemia History of colon cancer last chemotherapy in August 2018 with metastases to lungs History of bowel resection 2016 due to cancer Ureteral obstruction status post J stent placement in July 2018 secondary to colon cancer History of smoking Recurrent bowel obstruction DVT prophylaxis Hospital course Patient is a 73-year-old male with a known history of colon cancer in 2016 status post bowel resection, recent history of bowel obstruction about a week ago, double J stent placement in July 2018 due to ureteral obstruction secondary to colon cancer came to ER with the complaints of nausea vomiting and abdominal pain 2 hours prior to admission. Patient says that he has been having issues with constipation since the last bowel surgeries. Patient felt like it is identical to symptoms of bowel obstruction and presented to ER for evaluation. Otherwise patient denied a complaints of chest pain or shortness of breath. No fever no chills. Patient does have lung from Koehler catheter. Patient says that currently is undergoing chemotherapy for his lung metastatic lesions. CT of abdomen pelvis showed multiple dilated small bowel loops consistent with mechanical small bowel obstruction. Lactic acid 2.9 on admission which is resolved now. Plan: Patient was continued on IV fluids pain medications and nothing by mouth area. Patient is tolerating oral liquids. Able to pass flatus. Patient did have bowel movement today with Kayexalate due to hyperkalemia. Patient is tolerating oral diet otherwise. Stable to be discharged home and follow-up as an outpatient. Discharge physical examination was done Vital Signs - 24 hr 11/15/18 06:39 Temperature 97.9 F Pulse Rate [ 56 L Pulse Oximetery ] Respiratory 15 Rate Blood Pressure 155/77 [Right Arm] O2 Sat by Pulse 96 Oximetry Patient Condition at Discharge: Serious Plan - Discharge Summary New Discharge Prescriptions: New Polyethylene Glycol 3350 [Miralax] 17 gm PO DAILY PRN #20 packet PRN Reason: Constipation Continue Tamsulosin HCl [Flomax] 0.4 mg PO DAILY Discharge Medication List Tamsulosin HCl [Flomax] 0.4 mg PO DAILY 03/23/18 [History] Polyethylene Glycol 3350 [Miralax] 17 gm PO DAILY PRN #20 packet 11/15/18 [Rx] Follow up Appointment(s)/Referral(s): None,Stated [Primary Care Provider] - 1-2 days Patient Instructions/Handouts: Bowel Obstruction (DC) Discharge Disposition: HOME SELF-CARE
== END 2018-11-15 16:43 | disposition home or self-care (01) | DRG 389 ==
LOC: EC 14:53 → 4MS4W 16:31
PROVIDERS: ADMIT Internal Medicine; ATTEND Internal Medicine
DX: K56.699 Other intestinal obstruction unspecified as to partial versus complete obstruction (principal); C78.00 Secondary malignant neoplasm of unspecified lung; C78.6 Secondary malignant neoplasm of retroperitoneum and peritoneum; N17.9 Acute kidney failure, unspecified; E87.5 Hyperkalemia; N18.3 Chronic kidney disease, stage 3 (moderate); Z82.5 Family history of asthma and other chronic lower respiratory diseases; Z87.891 Personal history of nicotine dependence; Z90.49 Acquired absence of other specified parts of digestive tract; Z79.899 Other long term (current) drug therapy; Z92.21 Personal history of antineoplastic chemotherapy
CPT/HCPCS: 36415; 74018; 74176; 80048; 80053; 81001; 82150; 82550; 82553; 83605; 83690; 84484; 85025; 96361; 96374; 96375; 99285

== ENCOUNTER 2018-12-25 13:57 | Inpatient (IN) | payer MEDICARE ==
[2018-12-25] MEDS ORDERED: SODIUM CHLORIDE 0.9% 500 ML 500 ML IV STA (15:46)
[2018-12-25] MEDS ORDERED: SODIUM CHLORIDE 0.9% 1,000 ML IV SCH (16:00)
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
--- NOTE | 2018-12-25 16:17 | XR ---
EXAMINATION TYPE: XR chest 2V DATE OF EXAM: 12/25/2018 COMPARISON: 12/04/2018 HISTORY: Shortness of breath TECHNIQUE: Frontal and lateral views of the chest are obtained. FINDINGS: Scattered senescent parenchymal changes noted. Hyperinflation compatible with COPD. No evidence for infiltrate. No evidence for atelectasis. Scattered pulmonary nodules identified. Heart size is stable. Mediastinal structures are stable and grossly unremarkable. No evidence for hilar prominence. Degenerative changes dorsal spine. IMPRESSION: 1. No evidence for acute pulmonary disease. Scattered pulmonary nodules identified.
[2018-12-25 16:21] LABS: Appearance,Urine Cloudy (Clear); Bacteria,Urine Few /hpf; Bilirubin,Urine Negative (Negative); Blood,Urine Moderate (Negative); Color,Urine Yellow; Glucose,Urine (UA) Negative (Negative); Ketones,Urine Negative (Negative); Leukocyte Esterase,Urine Large (Negative); Nitrite,Urine Negative (Negative); PH, Urine 6.5 (5.0-8.0); Protein,Urine 2+ (Negative); RBC,Urine 22 /hpf (0-5); Urobilinogen,Urine <2.0 mg/dL (<2.0); WBC,Urine >182 /hpf (0-5)
[2018-12-25 16:25] LABS: INR 1.1 (<1.2); Partial Thromboplastin Time 29.3 sec (22.0-30.0); Prothrombin Time 11.2 sec (9.0-12.0)
[2018-12-25 16:26] LABS: Creatine Kinase 28 U/L (55-170)
[2018-12-25 16:28] LABS: Albumin 3.2 g/dL (3.5-5.0); Calcium 8.9 mg/dL (8.4-10.2); Magnesium 1.3 mg/dL (1.6-2.3); Potassium 3.6 mmol/L (3.5-5.1); Total Protein 6.3 g/dL (6.3-8.2)
[2018-12-25 16:31] LABS: Basophils % (A) 0 %; Eosinophils % (A) 0 %; HCT 31.2 % (39.0-53.0); HGB 10.2 gm/dL (13.0-17.5); Lymphocytes # (A) 1.6 k/uL (1.0-4.8); Lymphocytes % (A) 10 %; MCH 28.8 pg (25.0-35.0); MCHC 32.6 g/dL (31.0-37.0); MCV 88.3 fL (80.0-100.0); Mean Platelet Volume 6.9; Monocytes # (A) 1.3 k/uL (0-1.0); Monocytes % (A) 8 %; Neutrophils # (A) 12.9 k/uL (1.3-7.7); Neutrophils % (A) 81 %; Platelet Count 306 k/uL (150-450); RBC 3.54 m/uL (4.30-5.90); RDW 13.7 % (11.5-15.5); WBC 15.9 k/uL (3.8-10.6)
[2018-12-25] MEDS ORDERED: CEFEPIME 2 GM in SODIUM CHLORIDE 0.9% 50 ML IVPB STA (16:35)
[2018-12-25] MEDS ORDERED: VANCOMYCIN IV PER PHARMACY 1 EACH MISC MISCELLANE PRN (16:35)
[2018-12-25] MEDS ORDERED: MAGNESIUM SULFATE-D5W PMX 1 GM in DEXTROSE/WATER 1 100ML.BAG IVPB ONE (16:36)
[2018-12-25] MEDS ORDERED: SODIUM CHLORIDE 0.9% 500 ML 500 ML IV ONE (16:36)
[2018-12-25] MEDS ORDERED: ONDANSETRON 4 MG/2 ML VIAL IVP PRN (16:37)
[2018-12-25] MEDS ORDERED: ACETAMINOPHEN TAB 325 MG TAB PO PRN (16:37)
[2018-12-25] MEDS ORDERED: HYDROmorphone 0.5 MG/0.5 ML SYRINGE IVP PRN (16:37)
[2018-12-25] MEDS ORDERED: NALOXONE 0.4 MG/ML 1 ML VIAL IV PRN (16:37)
[2018-12-25 16:38] LABS: Creatine Kinase MB 0.2 ng/mL (0.0-2.4); Troponin I <0.012 ng/mL (0.000-0.034)
[2018-12-25] MEDS ORDERED: VANCOMYCIN 1,250 MG in SODIUM CHLORIDE 0.9% 250 ML IVPB STA (16:58)
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
--- NOTE | 2018-12-25 21:15 | US ---
EXAMINATION TYPE: US kidneys/renal and bladder DATE OF EXAM: 12/25/2018 COMPARISON: Ultrasound 11/30/2018 CLINICAL HISTORY: Hydronephrosis. UTI EXAM MEASUREMENTS: Right Kidney: 10.3 x 4.7 x 5.0 cm Left Kidney: 10.7 x 4.9 x 4.3 cm Right Kidney: Mild-moderate hydronephrosis seen. Left Kidney: Mild hydronephrosis seen. Bladder: Catheter in place. Bilateral Jets seen: No IMPRESSION: Right Kidney: Mild-moderate hydronephrosis. Left Kidney: Mild hydronephrosis.
[2018-12-25] MEDS: SODIUM BICARBONATE TAB 650 MG TAB PO SCH (22:44)
[2018-12-25] MEDS: SODIUM CHLORIDE 0.9% 1,000 ML IV SCH (22:44)
[2018-12-25 22:58] VITALS: BMI 22.2
[2018-12-25] MEDS: CEFEPIME 2 GM in SODIUM CHLORIDE 0.9% 50 ML IVPB SCH (23:09)
[2018-12-25] MEDS: HEPARIN SODIUM,PORCINE 5,000 UNIT/ML 1 ML VIAL SQ SCH (23:10)
[2018-12-26 07:49] LABS: Calcium 8.5 mg/dL (8.4-10.2); Potassium 3.7 mmol/L (3.5-5.1)
[2018-12-26 07:50] LABS: HCT 29.3 % (39.0-53.0); HGB 9.4 gm/dL (13.0-17.5); Hypochromasia Slight; MCV 90.7 fL (80.0-100.0); Mean Platelet Volume 6.4; Platelet Count 253 k/uL (150-450); RBC 3.23 m/uL (4.30-5.90); RDW 13.6 % (11.5-15.5); WBC 11.4 k/uL (3.8-10.6)
[2018-12-26] MEDS: CEFEPIME 2 GM in SODIUM CHLORIDE 0.9% 50 ML IVPB SCH (08:43)
[2018-12-26] MEDS: PANTOPRAZOLE 40 MG TABLET PO SCH (08:47)
[2018-12-26] MEDS: HEPARIN SODIUM,PORCINE 5,000 UNIT/ML 1 ML VIAL SQ SCH ×3 (08:47→23:40)
[2018-12-26] MEDS: TAMSULOSIN 0.4 MG CAP.ER.24H PO SCH (08:47)
[2018-12-26] MEDS: SODIUM BICARBONATE TAB 650 MG TAB PO SCH ×2 (08:47→20:18)
[2018-12-26] MEDS: VANCOMYCIN 1,250 MG in SODIUM CHLORIDE 0.9% 250 ML IVPB SCH ×2 (09:38→23:40)
[2018-12-26] MEDS ORDERED: DIAZEPAM 5 MG/ML 2 ML INJ IVP PRN (12:19)
[2018-12-26] MEDS: SODIUM CHLORIDE 0.9% 1,000 ML IV SCH ×3 (14:21→23:44)
[2018-12-26] MEDS ORDERED: CEFEPIME 2 GM in SODIUM CHLORIDE 0.9% 50 ML IVPB SCH (20:00)
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
--- NOTE | 2018-12-27 01:23 | CONS ---
CONSULTATION DATE OF SERVICE: 12/26/2018. REASON FOR CONSULTATION: Urinary tract infection. HISTORY OF PRESENT ILLNESS: The patient is a 73-year-old male who was recently admitted to the hospital, the patient did have colostomy. The patient did have evidence of colon cancer requiring a resection and diverting colostomy. The patient also has urinary retention requiring chronic indwelling Koehler catheter. The patient presenting to the ER at [facility] yesterday afternoon after apparently the patient did have a fever that has been going on for the last 3 days. Patient has taken some Benadryl at home. However, the patient was feeling very weak and tired and did not have any energy. The patient denies having any headache. No URI symptoms. No chest pain. No shortness of breath or cough. No abdominal pain. Did have some increase output from his colostomy bag. Not clear when the Koehler catheter was changed last. With these symptoms, the patient was evaluated by the ER physician. On arrival to the ER, the patient did have fever of 101.2 degrees Fahrenheit. The patient did have elevated white count of 15.9. The patient did have influenza serology was negative. UA was positive with large leukocyte esterase, more than one WBC with many bacteria. Cultures are currently pending. Blood cultures have been negative. So far Infectious Disease was consulted for further recommendations regarding antibiotic therapy. REVIEW OF SYSTEMS: Positive points have been mentioned in HPI. The rest of the systems have been negative. PAST MEDICAL HISTORY: Colon cancer with metastases to the lungs, hepatitis and urine retention, UTI. PAST SURGICAL HISTORY: Appendectomy, bowel obstruction, tonsillectomy. SOCIAL HISTORY: Former smoker. Occasionally drinks. No drug use. FAMILY HISTORY: Father with a history of head injury in a motor vehicle accident . Mother history of COPD, smoker. ALLERGIES: No known drug allergies. MEDICATIONS: Include the patient is currently on Tylenol, cefepime, Valium, heparin, Narcan, Zofran, Protonix, sodium bicarbonate, Flomax, Vancomycin 1250 q16 hours. PHYSICAL EXAMINATION: Blood pressure is 101/54 with a pulse of 82, temperature 98.1. T-max is 101. He is 98% on room air. General description is an elderly male lying in bed in no distress. No tachypnea or accessory muscles of respiration use. HEENT: Shows slight pallor. No scleral icterus. Oral mucosa membranes are dry. No pharyngeal erythema or thrush. Neck: Trachea central. No thyromegaly. Lungs unlabored breathing. Clear to auscultation anteriorly. No wheeze or crackles. Heart S1, S2. Regular rate and rhythm. ABDOMEN: Soft, no tenderness. No guarding or rigidity. EXTREMITIES: No edema of the feet. Skin examination: No rash or mass palpable. Neurological patient is awake, alert, oriented x3. Mood and affect normal. LABS: Hemoglobin 9.4, admission white count was 15.9, BUN of 14, creatinine 1.27. Electrolytes have been normal. normal. Urine was positive as mentioned above. Urine cultures now showing an Enterococcus. Blood culture has been negative so far. The patient did have abdominal ultrasound which shows [id number] hydronephrosis of the right kidney with mild hydronephrosis. DIAGNOSTIC IMPRESSION AND PLAN: Patient admitted to the hospital with sepsis in this patient who did have a fever, tachycardia, elevated white count, source is likely complicated catheter associated urinary tract infection in this patient who did have evidence of hydronephrosis on the CT but no evidence of any abscess. Urine cultures currently showing gram positive that is group D Enterococcus. PLAN: 1. Vancomycin pharmacy to dose target of 15 while watching kidney function and Vanco trough closely and discontinue the cefepime as no gram negative has been seen. 2. Gentle IV fluid. 3. The patient may benefit from urology in view of the hydronephrosis seen. 4. We will follow up on clinical condition and culture to further adjust medication if needed. Thank you for this consultation. Will follow this patient along with you. MMODL / IJN: [id number] /
[2018-12-27] MEDS: SODIUM BICARBONATE TAB 650 MG TAB PO SCH ×2 (09:38→20:54)
[2018-12-27] MEDS: HEPARIN SODIUM,PORCINE 5,000 UNIT/ML 1 ML VIAL SQ SCH ×2 (09:38→18:20)
[2018-12-27] MEDS: PANTOPRAZOLE 40 MG TABLET PO SCH (09:38)
[2018-12-27] MEDS: SODIUM CHLORIDE 0.9% 1,000 ML IV SCH ×2 (09:38→20:54)
[2018-12-27] MEDS: TAMSULOSIN 0.4 MG CAP.ER.24H PO SCH (09:38)
[2018-12-27] MEDS ORDERED: VANCOMYCIN TROUGH DUE 1 EACH MISC MISCELLANE ONE (15:00)
[2018-12-27] MEDS: VANCOMYCIN 1,250 MG in SODIUM CHLORIDE 0.9% 250 ML IVPB SCH (16:17)
--- NOTE | 2018-12-27 17:44 | P.PN ---
Subjective Hospital course: 73-year-old with history of colon cancer was here about 10 days ago underwent colectomy and has a colostomy bag in place came in after a syncopal episode and is found to have high-grade fever with the chills. Patient does have Koehler catheter and ureteral stents in place the Koehler catheter was placed with neurologist here. Patient the Koehler catheter was not replaced yet. Patient denied any nausea vomiting abdominal pain suprapubic pain. Patient urine is significantly abnormal denied any cough. Patient has pseudomonas aeruginosa in the urine. Patient was appropriately started on supplemental vancomycin which will be continued. Infectious disease will be consulted during his last hospitalization patient had obstructive uropathy. Patient's baseline creatinine appears to be 1.2-1.3 after that obstructive uropathy. Patient will be continued on IV fluids and the antibiotics. 12/26/2018 evaluated by urology regarding recent urology stents, recommendations noted. Maintained on antibiotics, IV fluids. Tolerating low fiber diet with no nausea or vomiting.. Review of Systems REVIEW OF SYSTEMS: CONSTITUTIONAL: As mentioned in HPI HEENT: No recent visual problems or hearing problems. Denied any sore throat. CARDIOVASCULAR: No chest pain, orthopnea, PND, no palpitations, no syncope. PULMONARY: No shortness of breath, no cough, no hemoptysis. GASTROINTESTINAL: No diarrhea, no nausea, no vomiting, no abdominal pain. NEUROLOGICAL: No headaches, no weakness, no numbness. HEMATOLOGICAL: Denies any bleeding or petechiae. GENITOURINARY: Denies any burning micturition, frequency, or urgency. MUSCULOSKELETAL/RHEUMATOLOGICAL: Denies any joint pain, swelling, or any muscle pain. ENDOCRINE: Denies any polyuria or polydipsia. The rest of the 14-point review of systems is negative. Objective - Vital Signs Vital signs: Vital Signs Temp 98.0 F 12/27/18 14:30 Pulse 69 12/27/18 14:30 Resp 16 12/27/18 14:30 BP 102/62 12/27/18 14:30 Pulse Ox 98 12/27/18 14:30 Intake & Output 12/26/18 12/27/18 12/27/18 18:59 06:59 18:59 Intake Total 300 240 Output Total 710 2000 710 Balance -410 -2000 -470 Weight 61.552 kg Intake: Intake, IV Titration 300 Amount Cefepime 2 gm In Sodium 50 Chloride 0.9% 50 ml @ 100 mls/hr IVPB Q8HR [facility] Rx# :[id number] Vancomycin 1,250 mg In 250 Sodium Chloride 0.9% 250 ml @ 125 mls/hr IVPB Q16H [facility] Rx#:[id number] Oral 240 Output: Urine 700 2000 700 Stool 10 10 Other: Voiding Method Indwelling Catheter Indwelling Catheter Indwelling Catheter - Exam GENERAL: The patient is alert and oriented x3, not in any acute distress. Well developed, well nourished. HEENT: Pupils are round and equally reacting to light. EOMI. No scleral icterus. No conjunctival pallor. Normocephalic, atraumatic. CARDIOVASCULAR: S1 and S2 present. No murmurs, rubs, or gallops. PULMONARY: Chest is clear to auscultation, no wheezing or crackles. ABDOMEN: Soft, nontender, nondistended, normoactive bowel sounds. No palpable organomegaly.Patient has a Koehler catheter in place urostomy bag in place EXTREMITIES: No cyanosis, clubbing, or pedal edema. NEUROLOGICAL: Gross neurological examination did not reveal any focal deficits. SKIN: No rashes. - Labs CBC & Chem 7: 12/26/18 06:57 12/26/18 06:57 Labs: Microbiology - Last 24 Hours (Table) 12/25/18 18:25 Urine Culture - Preliminary Urine,Catheterized Group D Enterococcus 12/25/18 15:30 Blood Culture - Preliminary Blood No Growth after 24 hours Assessment and Plan Assessment: -Sepsis secondary to possible urinary tract infection probably catheter related , present on admission. Koehler catheter changed . Group D Enterrococcus in the urine. - recent renal stents. -Acute kidney injury secondary to prerenal azotemia and chronic kidney disease stage II. -History of colonic adenocarcinoma recent diagnosis with a colostomy Plan: Continue on current medication regime ,monitoring and symptomatic treatment. Continue on IV antibiotics. Infectious disease consulted with recommendations pending. Close monitoring of renal function with repeat labs ordered for a.m. Increase ambulation as tolerated. Discharge planning in progress for tomorrow. The impression and plan of care has been dictated as directed. : I performed a history and examination of this patient, discussed the same with the dictator. I agree with the dictator's note ,documented as a scribe. Any additional findings or plans will be noted.
--- NOTE | 2018-12-27 17:45 | P.PN ---
Subjective Progress Note Date: 12/26/18 Hospital course: 73-year-old with history of colon cancer was here about 10 days ago underwent colectomy and has a colostomy bag in place came in after a syncopal episode and is found to have high-grade fever with the chills. Patient does have Koehler catheter and ureteral stents in place the Koehler catheter was placed with neurologist here. Patient the Koehler catheter was not replaced yet. Patient denied any nausea vomiting abdominal pain suprapubic pain. Patient urine is significantly abnormal denied any cough. Patient has pseudomonas aeruginosa in the urine. Patient was appropriately started on supplemental vancomycin which will be continued. Infectious disease will be consulted during his last hospitalization patient had obstructive uropathy. Patient's baseline creatinine appears to be 1.2-1.3 after that obstructive uropathy. Patient will be continued on IV fluids and the antibiotics. 12/26/2018 evaluated by urology regarding recent urology stents, recommendations noted. Maintained on antibiotics, IV fluids. Review of Systems REVIEW OF SYSTEMS: CONSTITUTIONAL: As mentioned in HPI HEENT: No recent visual problems or hearing problems. Denied any sore throat. CARDIOVASCULAR: No chest pain, orthopnea, PND, no palpitations, no syncope. PULMONARY: No shortness of breath, no cough, no hemoptysis. GASTROINTESTINAL: No diarrhea, no nausea, no vomiting, no abdominal pain. NEUROLOGICAL: No headaches, no weakness, no numbness. HEMATOLOGICAL: Denies any bleeding or petechiae. GENITOURINARY: Denies any burning micturition, frequency, or urgency. MUSCULOSKELETAL/RHEUMATOLOGICAL: Denies any joint pain, swelling, or any muscle pain. ENDOCRINE: Denies any polyuria or polydipsia. The rest of the 14-point review of systems is negative. Objective - Vital Signs Vital signs: Vital Signs Temp 99.5 F 12/26/18 07:21 Pulse 77 12/26/18 07:21 Resp 16 12/26/18 07:21 BP 101/59 12/26/18 07:21 Pulse Ox 97 12/26/18 09:23 Intake & Output 12/25/18 12/26/18 12/26/18 18:59 06:59 18:59 Intake Total 300 Output Total 1335 700 Balance -1335 -400 Weight 61.552 kg 61.552 kg Intake: Intake, IV Titration 300 Amount Cefepime 2 gm In Sodium 50 Chloride 0.9% 50 ml @ 100 mls/hr IVPB Q8HR [facility] Rx# :[id number] Vancomycin 1,250 mg In 250 Sodium Chloride 0.9% 250 ml @ 125 mls/hr IVPB Q16H [facility] Rx#:[id number] Output: Urine 1325 700 Stool 10 Other: Voiding Method Indwelling Catheter Indwelling Catheter - Exam GENERAL: The patient is alert and oriented x3, not in any acute distress. Well developed, well nourished. HEENT: Pupils are round and equally reacting to light. EOMI. No scleral icterus. No conjunctival pallor. Normocephalic, atraumatic. No pharyngeal erythema. No thyromegaly. CARDIOVASCULAR: S1 and S2 present. No murmurs, rubs, or gallops. PULMONARY: Chest is clear to auscultation, no wheezing or crackles. ABDOMEN: Soft, nontender, nondistended, normoactive bowel sounds. No palpable organomegaly. Patient has a Koehler catheter in place urostomy bag in place MUSCULOSKELETAL: No joint swelling or deformity. EXTREMITIES: No cyanosis, clubbing, or pedal edema. NEUROLOGICAL: Gross neurological examination did not reveal any focal deficits. SKIN: No rashes. - Labs CBC & Chem 7: 12/26/18 06:57 12/26/18 06:57 Labs: Abnormal Lab Results - Last 24 Hours (Table) 12/26/18 12/26/18 Range/Units 06:57 06:57 WBC 11.4 H (3.8-10.6) k/uL RBC 3.23 L (4.30-5.90) m/uL Hgb 9.4 L (13.0-17.5) gm/dL Hct 29.3 L (39.0-53.0) % Chloride 114 H (98-107) mmol/L Carbon Dioxide 21 L (22-30) mmol/L Creatinine 1.27 H (0.66-1.25) mg/dL Microbiology - Last 24 Hours (Table) 12/25/18 18:25 Urine Culture - Preliminary Urine,Catheterized Assessment and Plan Assessment: -Sepsis secondary to possible urinary tract infection probably catheter related , present on admission. Koehler catheter changed . Group D Enterrococcus in the urine. - recent renal stents. -Acute kidney injury secondary to prerenal azotemia and chronic kidney disease stage II. -History of colonic adenocarcinoma recent diagnosis with a colostomy Plan: Continue on current medication regime ,monitoring and symptomatic treatment. Infectious disease consulted with recommendations pending. Increase ambulation as tolerated. Discharge planning in progress for tomorrow. The impression and plan of care has been dictated as directed. : I performed a history and examination of this patient, discussed the same with the dictator. I agree with the dictator's note ,documented as a scribe. Any additional findings or plans will be noted.
[2018-12-27 21:11] VITALS: RESP 15
[2018-12-28] MEDS: HEPARIN SODIUM,PORCINE 5,000 UNIT/ML 1 ML VIAL SQ SCH ×2 (00:32→09:47)
[2018-12-28] MEDS: AMPICILLIN-SULBACTAM 3 GM in SODIUM CHLORIDE 0.9% 100 ML IVPB SCH ×3 (00:32→14:41)
[2018-12-28 00:36] VITALS: TEMP 98.7
[2018-12-28] MEDS: PANTOPRAZOLE 40 MG TABLET PO SCH (07:19)
[2018-12-28 07:21] VITALS: BP 117/68; PULSE 65
[2018-12-28 07:43] LABS: Basophils % (A) 0 %; Eosinophils # (A) 0.2 k/uL (0-0.7); Eosinophils % (A) 4 %; HCT 26.1 % (39.0-53.0); HGB 8.4 gm/dL (13.0-17.5); Hypochromasia Moderate; Lymphocytes # (A) 1.1 k/uL (1.0-4.8); Lymphocytes % (A) 19 %; MCH 29.4 pg (25.0-35.0); MCHC 32.1 g/dL (31.0-37.0); MCV 91.6 fL (80.0-100.0); Mean Platelet Volume 6.6; Monocytes # (A) 0.4 k/uL (0-1.0); Monocytes % (A) 7 %; Neutrophils # (A) 3.8 k/uL (1.3-7.7); Neutrophils % (A) 67 %; Platelet Count 248 k/uL (150-450); RBC 2.85 m/uL (4.30-5.90); RDW 13.8 % (11.5-15.5); WBC 5.6 k/uL (3.8-10.6)
--- NOTE | 2018-12-28 07:46 | PN ---
PROGRESS NOTE DATE OF SERVICE: 12/27/2018 REASON FOR FOLLOWUP: Catheter-associated urinary tract infection. INTERVAL HISTORY: The patient is currently afebrile. He has been breathing comfortably. Patient denies having any chest pain. No shortness of breath, no cough. No abdominal pain, no diarrhea. PHYSICAL EXAMINATION: Blood pressure 103/64 with pulse of 88, temperature 98.5, he is 100% on room air. General description is an elderly male, lying in bed in no distress. RESPIRATORY SYSTEM: Unlabored breathing, clear to auscultation anteriorly. HEART: S1, S2. Regular rate and rhythm. ABDOMEN: Soft, no tenderness. LABS: Urine culture finalized with Enterococcus faecalis and ampicillin sensitive. DIAGNOSTIC IMPRESSION AND PLAN: Patient with admission to the hospital with sepsis in this patient. Source has been urinary. Urine has been finalized with E coli that is sensitive to the ampicillin. We will discontinue the vancomycin. Start the patient on Unasyn with plan to finish therapy with oral Augmentin. Continue supportive care. MMODL / IJN: [id number] /
[2018-12-28 07:52] LABS: Calcium 8.6 mg/dL (8.4-10.2); Potassium 3.2 mmol/L (3.5-5.1)
--- NOTE | 2018-12-28 09:08 | PN ---
PROGRESS NOTE DATE OF SERVICE: 12/27/2018 REASON FOR FOLLOWUP: Catheter-associated urinary tract infection. INTERVAL HISTORY: The patient is currently afebrile. He has been breathing comfortably. The patient denies having any chest pain. No shortness of breath, no cough. No abdominal pain, no diarrhea. PHYSICAL EXAMINATION: Blood pressure 103/64 with pulse of 88, temperature 98.5, he is 100% on room air. General description is an elderly male, lying in bed in no distress. RESPIRATORY SYSTEM: Unlabored breathing, clear to auscultation anteriorly. HEART: S1, S2. Regular rate and rhythm. ABDOMEN: Soft, no tenderness. LABS: Urine culture finalized with Enterococcus faecalis with ampicillin sensitive. DIAGNOSTIC IMPRESSION AND PLAN: Patient with admission to the hospital with sepsis in this patient. Source has been the urinary. Urine has been finalized with E coli that is sensitive to the ampicillin. We will discontinue the vancomycin. Start the patient on Unasyn with plan to finish therapy with oral Augmentin. Continue supportive care. MMODL / IJN: [id number] /
[2018-12-28] MEDS: SODIUM CHLORIDE 0.9% 1,000 ML IV SCH (09:46)
[2018-12-28] MEDS: TAMSULOSIN 0.4 MG CAP.ER.24H PO SCH (09:47)
[2018-12-28] MEDS: SODIUM BICARBONATE TAB 650 MG TAB PO SCH (09:47)
[2018-12-28] MEDS ORDERED: Potassium Replacement Protocol 1 EACH MISC MISCELLANE PRN (09:58)
[2018-12-28] MEDS: POTASSIUM CHLORIDE ER 20 MEQ TAB.ER PO SCH ×2 (11:52→12:53)
--- NOTE | 2018-12-28 15:13 | PN ---
PROGRESS NOTE DATE OF SERVICE: 12/28/2018 REASON FOR FOLLOWUP: Enterococcus catheter-associated urinary intact infection. INTERVAL HISTORY: The patient is currently afebrile. Overall he is feeling better, breathing comfortably. No chest pain or any cough and no abdominal pain or diarrhea. PHYSICAL EXAMINATION: Blood pressure 117/68 with a pulse of 65, temperature 98.7. He is 96% on room air. General description is an elderly male lying in bed in no distress. RESPIRATORY SYSTEM: Unlabored breathing. Clear to auscultation anteriorly. HEART: S1, S2. Regular rate and rhythm. ABDOMEN: Soft. No tenderness. LABS: Hemoglobin 8.4, white count 5.7, BUN of 11, creatinine 1.16. Catheter tip was negative. DIAGNOSTIC IMPRESSION AND PLAN: Patient with complicated catheter-associated urinary tract infection. Patient's symptoms have shown clinical improvement. Plan at this time is to continue with oral Augmentin 875 b.i.d. for about a week. Continue with supportive care. MMODL / IJN: [id number] /
--- NOTE | 2018-12-28 20:05 | P.DS ---
Providers Date of admission: 12/25/18 16:37 Expected date of discharge: 12/28/18 Attending physician: Neel Nolasco Consults: 12/25/18 18:11 Consult Physician Routine Consulting Provider: Sonia Leong Consult Reason/Comments: UTI Do you want consulting provider notified?: Yes 12/25/18 18:14 Consult Physician Routine Consulting Provider: Tanner Armijo Consult Reason/Comments: UTI, uretral stents Do you want consulting provider notified?: Yes Primary care physician: Physician Nonstaff Hospital Course: Final diagnoses:-Sepsis secondary to acute urinary tract infection with enterococcus faecalis probably catheter related, present on admission. Koehler catheter changed . - recent renal stents. -Acute kidney injury secondary to prerenal azotemia and chronic kidney disease stage II. Improving -History of colonic adenocarcinoma recent diagnosis with a colostomy Hospital course: This is a 73-year-old with history of colon cancer was here about 10 days ago underwent colectomy and has a colostomy bag in place came in after a syncopal episode and is found to have high-grade fever with the chills. Patient does have Koehler catheter and ureteral stents in place the Koehler catheter was placed with neurologist here. Patient the Koehler catheter was not replaced yet. Patient denied any nausea vomiting abdominal pain suprapubic pain. Patient urine is significantly abnormal denied any cough. Patient has pseudomonas aeruginosa in the urine. Patient was appropriately started on supplemental vancomycin which will be continued. Infectious disease will be consulted during his last hospitalization patient had obstructive uropathy. Patient's baseline creatinine appears to be 1.2-1.3 after that obstructive uropathy. Patient will be continued on IV fluids and the antibiotics. Evaluated by urology regarding recent urology stents, recommends following up with Dr. Buckley outpatient. Evaluated by infectious disease. Maintained on antibiotics, IV fluids. Tolerated low fiber diet with no nausea or vomiting. Significant clinical improvement. Cleared by all consults for discharge. Patient is being discharged home in a stable condition with guarded prognosis. - Exam GENERAL: The patient is alert and oriented x3, not in any acute distress. Well developed, well nourished. HEENT: Pupils are round and equally reacting to light. EOMI. No scleral icterus. No conjunctival pallor. Normocephalic, atraumatic. CARDIOVASCULAR: S1 and S2 present. No murmurs, rubs, or gallops. PULMONARY: Chest is clear to auscultation, no wheezing or crackles. ABDOMEN: Soft, nontender, nondistended, normoactive bowel sounds. No palpable organomegaly.Patient has a Koehler catheter in place urostomy bag in place EXTREMITIES: No cyanosis, clubbing, or pedal edema. NEUROLOGICAL: Gross neurological examination did not reveal any focal deficits. SKIN: No rashes. Microbiology 12/25/18 15:30 Blood Blood Culture - Preliminary No Growth after 72 hours 12/25/18 18:25 Urine,Catheterized Urine Culture - Final Enterococcus faecalis The impression and plan of care has been dictated as directed. .: I performed a history and examination of this patient, discussed the same with the dictator. I agree with the dictator's note ,documented as a scribe. Any additional findings or plans will be noted. Time taken: 35 minute Patient Condition at Discharge: Stable Plan - Discharge Summary Discharge Rx Participant: No New Discharge Prescriptions: New Amoxic-Pot Clav 875-125Mg [Augmentin 875-125] 1 tab PO Q12HR #14 tablet Continue Tamsulosin HCl [Flomax] 0.4 mg PO DAILY Ergocalciferol [Vitamin D2 (DRISDOL)] 50,000 unit PO MUSA Pantoprazole [Protonix] 40 mg PO DAILY #30 tablet. Sodium Bicarbonate Tab 650 mg PO BID #28 tab Discharge Medication List Tamsulosin HCl [Flomax] 0.4 mg PO DAILY 03/23/18 [History] Ergocalciferol [Vitamin D2 (DRISDOL)] 50,000 unit PO MUSA 11/23/18 [History] Pantoprazole [Protonix] 40 mg PO DAILY #30 tablet. 12/12/18 [Rx] Sodium Bicarbonate Tab 650 mg PO BID #28 tab 12/12/18 [Rx] Amoxic-Pot Clav 875-125Mg [Augmentin 875-125] 1 tab PO Q12HR #14 tablet [Rx] Follow up Appointment(s)/Referral(s): Jesus Kinsey MD [STAFF PHYSICIAN] - 01/02/19 11:40 am Pato Robb MD [REFERRING] - 01/17/19 3:00 pm Ambulatory/Diagnostic Orders: Complete Blood Count w/diff [LAB.AMB] Time Frame: 3 Days, Location: None Selected Patient Instructions/Handouts: Amoxicillin/Clavulanate Potassium (By mouth), Acute Kidney Injury (DC), Urinary Tract Infection in Men (DC), Koehler Catheter Placement and Care (DC), Complete Blood Count (GEN), Sepsis (GEN), Urinary Leg Bag (GEN), Catheter-associated Urinary Tract Infection (DC) Activity/Diet/Wound Care/Special Instructions: DC after Potassium supplemented. [facility]: #[phone] Diet: Low fiber, renal Activity: Limited until follow up Discharge Disposition: HOME SELF-CARE
== END 2018-12-28 14:50 | disposition home health service (06) | DRG 698 ==
LOC: EC 13:57 → 3NMEDONC 16:37 → 4SSUR 19:56 → 3NMEDONC 12-28 08:09
PROVIDERS: ADMIT Internal Medicine; ATTEND Internal Medicine
DX: T83.511A Infection and inflammatory reaction due to indwelling urethral catheter, initial encounter (principal); A41.81 Sepsis due to Enterococcus; N13.6 Pyonephrosis; C78.00 Secondary malignant neoplasm of unspecified lung; N17.9 Acute kidney failure, unspecified; C78.4 Secondary malignant neoplasm of small intestine; E86.0 Dehydration; N18.2 Chronic kidney disease, stage 2 (mild); Z79.899 Other long term (current) drug therapy; Z93.3 Colostomy status; Z87.891 Personal history of nicotine dependence; Z90.49 Acquired absence of other specified parts of digestive tract; Z85.038 Personal history of other malignant neoplasm of large intestine; Z92.21 Personal history of antineoplastic chemotherapy; Z86.19 Personal history of other infectious and parasitic diseases; Z96.0 Presence of urogenital implants; Y84.6 Urinary catheterization as the cause of abnormal reaction of the patient, or of later complication, without mention of misadventure at the time of the procedure; Z82.5 Family history of asthma and other chronic lower respiratory diseases; Z81.2 Family history of tobacco abuse and dependence
CPT/HCPCS: 36415; 51702; 71046; 76770; 80048; 80053; 80202; 81001; 82550; 82553; 83605; 83735; 84484; 85025; 85027; 85610; 85730; 87040; 87077; 87086; 87186; 87502; 93005; 94760; 96365; 96366; 96368; 99285

== ENCOUNTER 2019-01-09 16:49 | Inpatient (IN) | payer MEDICARE ==
[2019-01-09] MEDS ORDERED: ACETAMINOPHEN TAB 500 MG TAB PO STA (17:25)
[2019-01-09] MEDS ORDERED: ONDANSETRON 4 MG/2 ML VIAL IVP STA (17:27)
[2019-01-09 17:58] LABS: Basophils % (A) 0 %; Eosinophils # (A) 0.2 k/uL (0-0.7); Eosinophils % (A) 1 %; HCT 28.5 % (39.0-53.0); Hypochromasia Slight; Lymphocytes # (A) 0.5 k/uL (1.0-4.8); Lymphocytes % (A) 3 %; MCH 27.8 pg (25.0-35.0); MCHC 31.6 g/dL (31.0-37.0); Mean Platelet Volume 6.7; Monocytes # (A) 0.5 k/uL (0-1.0); Monocytes % (A) 3 %; Neutrophils # (A) 18.6 k/uL (1.3-7.7); Neutrophils % (A) 93 %; Platelet Count 421 k/uL (150-450); RBC 3.24 m/uL (4.30-5.90); WBC 19.9 k/uL (3.8-10.6)
[2019-01-09] MEDS: SODIUM CHLORIDE 0.9% 500 ML 500 ML IV SCH (18:01)
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
[2019-01-09 18:06] LABS: Albumin 3.3 g/dL (3.5-5.0); Calcium 8.8 mg/dL (8.4-10.2); Potassium 3.8 mmol/L (3.5-5.1); Total Protein 6.6 g/dL (6.3-8.2)
[2019-01-09 18:15] LABS: INR 1.2 (<1.2); Partial Thromboplastin Time 27.1 sec (22.0-30.0); Prothrombin Time 12.1 sec (9.0-12.0)
--- NOTE | 2019-01-09 18:33 | XR ---
EXAMINATION TYPE: XR chest 2V DATE OF EXAM: 01/09/2019 COMPARISON: December 25, 2018 HISTORY: Fever TECHNIQUE: Frontal and lateral views of the chest are obtained. FINDINGS: There is no heart failure. There is some mild nodularity in the lung sepulveda.. Costophrenic angles are clear. There is a right central venous catheter with the tip in the superior vena cava. T here is no pleural effusion. There is some coarsening of interstitial markings. IMPRESSION: There is a mild coarse reticular nodular pulmonary infiltrate that is improved slightly compared to last exam that may indicate favorable treatment response. Normal heart.
[2019-01-09] MEDS ORDERED: SODIUM CHLORIDE 0.9% 500 ML 500 ML IV ONE (18:34)
[2019-01-09 18:42] LABS: Appearance,Urine Cloudy (Clear); Bacteria,Urine Many /hpf; Bilirubin,Urine Negative (Negative); Blood,Urine Large (Negative); Color,Urine Yellow; Glucose,Urine (UA) Negative (Negative); Ketones,Urine Negative (Negative); Leukocyte Esterase,Urine Large (Negative); Nitrite,Urine Negative (Negative); Protein,Urine 1+ (Negative); RBC,Urine >182 /hpf (0-5); Specific Gravity,Urine 1.009 (1.001-1.035); Urobilinogen,Urine <2.0 mg/dL (<2.0); WBC,Urine 33 /hpf (0-5)
[2019-01-09] MEDS ORDERED: VANCOMYCIN IV PER PHARMACY 1 EACH MISC MISCELLANE PRN (18:50)
[2019-01-09] MEDS ORDERED: CEFEPIME 2 GM in SODIUM CHLORIDE 0.9% 100 ML IVPB STA (18:50)
[2019-01-09] MEDS ORDERED: NALOXONE 0.4 MG/ML 1 ML VIAL IV PRN (19:28)
[2019-01-09] MEDS ORDERED: VANCOMYCIN 1,250 MG in SODIUM CHLORIDE 0.9% 250 ML IVPB ONE (20:00)
[2019-01-09] MEDS: SODIUM CHLORIDE 0.9% 1,000 ML IV SCH (20:49)
[2019-01-09 21:05] VITALS: BMI 26.2
[2019-01-10] MEDS: CEFEPIME 2 GM in SODIUM CHLORIDE 0.9% 100 ML IVPB SCH ×2 (04:59→13:04)
[2019-01-10] MEDS: ACETAMINOPHEN TAB 325 MG TAB PO PRN ×2 (07:55→22:09)
[2019-01-10 08:52] LABS: Basophils % (A) 0 %; Eosinophils % (A) 0 %; HCT 23.5 % (39.0-53.0); Hypochromasia Marked; Lymphocytes # (A) 0.6 k/uL (1.0-4.8); Lymphocytes % (A) 5 %; MCH 27.7 pg (25.0-35.0); MCHC 30.6 g/dL (31.0-37.0); MCV 90.3 fL (80.0-100.0); Mean Platelet Volume 7.1; Monocytes # (A) 0.4 k/uL (0-1.0); Monocytes % (A) 3 %; Neutrophils # (A) 12.1 k/uL (1.3-7.7); Neutrophils % (A) 91 %; Platelet Count 270 k/uL (150-450); RDW 14.5 % (11.5-15.5); WBC 13.3 k/uL (3.8-10.6)
[2019-01-10 09:19] LABS: HGB 7.2 gm/dL (13.0-17.5)
[2019-01-10 09:21] LABS: Calcium 7.8 mg/dL (8.4-10.2); Potassium 3.6 mmol/L (3.5-5.1)
[2019-01-10] MEDS: SODIUM CHLORIDE 0.9% 1,000 ML IV SCH (09:28)
[2019-01-10] MEDS ORDERED: VANCOMYCIN 1,000 MG in SODIUM CHLORIDE 0.9% 250 ML IVPB ONE (11:00)
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
[2019-01-10] MEDS ORDERED: CEFEPIME 2 GM in SODIUM CHLORIDE 0.9% 100 ML IVPB SCH (13:00)
[2019-01-10 15:30] LABS: Appearance,Urine Cloudy (Clear); Bacteria,Urine Few /hpf; Bilirubin,Urine Negative (Negative); Blood,Urine Moderate (Negative); Color,Urine Yellow; Glucose,Urine (UA) Negative (Negative); Ketones,Urine Negative (Negative); Leukocyte Esterase,Urine Large (Negative); Nitrite,Urine Negative (Negative); Protein,Urine 1+ (Negative); RBC,Urine >182 /hpf (0-5); Specific Gravity,Urine 1.013 (1.001-1.035); Urobilinogen,Urine <2.0 mg/dL (<2.0)
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
[2019-01-10] MEDS: HEPARIN SODIUM,PORCINE 5,000 UNIT/ML 1 ML VIAL SQ SCH (20:32)
[2019-01-10] MEDS ORDERED: FAMOTIDINE 20 MG/2 ML VIAL IV SCH ×2 (21:00)
[2019-01-11] MEDS: SODIUM CHLORIDE 0.9% 1,000 ML IV SCH ×3 (01:00→12:32)
[2019-01-11] MEDS ORDERED: CEFEPIME 2 GM in SODIUM CHLORIDE 0.9% 100 ML IVPB SCH (05:00)
--- NOTE | 2019-01-11 06:28 | CONS ---
CONSULTATION DATE OF SERVICE: 01/10/2019 REASON FOR CONSULTATION: Septicemia. HISTORY OF PRESENT ILLNESS: The patient is a 73-year-old male with a past medical history significant for a cecal tumor with invasion of the pelvic sidewall. The patient is status post right hemicolectomy, sigmoid resection. The patient did have evidence of high-grade T4 tumor for which the patient has been started on chemo. The patient did have urinary outflow obstruction requiring a Koehler catheter placement in this patient who did have a right- sided hydronephrosis with right double-J catheter placement. The patient did have a chronic indwelling Koehler catheter who was recently treated for Enterococcus catheter associated urinary tract infection. After stabilization the patient was discharged home 12/28 with course of oral Augmentin. The patient is now brought back to the ER at [facility]. The patient having a fever. Apparently the patient's fever started last night. The patient having shaking chills throughout the night. The patient did have an episode of vomiting as well and he was unable to keep down some fluids. The patient denies having any chest pain. No shortness of breath. No nausea, no vomiting. No abdominal pain or any diarrhea. The patient did have a Foley catheter not very clear when it was changed last. With these symptoms, the patient was evaluated by the ER physician. On arrival to the ER, the patient has been febrile with a temperature of 103.1 degrees Fahrenheit, subsequently fever 102.1. The patient has been tachycardia with the heart rate in the 100s and his white count is elevated 19.9. The patient did have a positive UA with large leukocyte esterase more than 182 WBCs. The patient's urine culture is currently pending. However, the blood culture did grow gram-negative bacilli that prompted this infectious disease consultation. Patient has been empirically started on vancomycin and cefepime. REVIEW OF SYSTEMS: Positive points have been mentioned in HPI. Rest of the system has been negative. PAST MEDICAL HISTORY: Colon cancer with metastasis to lungs, history of the urinary retention, right-sided hydronephrosis, recurrent UTIs and chronic indwelling Koehler catheter. PAST SURGICAL HISTORY: Appendectomy, bowel resection, tonsillectomy. SOCIAL HISTORY: Remote history of smoking. No drinking or drug use. FAMILY HISTORY: Father with a history of head injury in a motor vehicle accident. Mother history of COPD. ALLERGIES: No known drug allergies. MEDICATION: Medications currently include the patient is on cefepime 2 grams q.8 hours. He is on vancomycin pharmacy to dose. Patient is on Narcan, Tylenol, and IV fluid. PHYSICAL EXAMINATION: On examination, blood pressure is 94/51 with a pulse of 68, temperature 98.3. He is 96% on room air. General description is an elderly male lying in bed in no distress. No tachypnea or accessory muscle of respiration use. HEENT examination shows pallor. No scleral icterus. Oral mucous membrane is dry. No pharyngeal erythema or thrush. NECK: Trachea central. No thyromegaly. LUNGS: Unlabored breathing, clear to auscultation anteriorly. No wheeze or crackle. HEART: S1, S2. Regular rate and rhythm. No added sounds. ABDOMEN: Soft, no tenderness. No guarding. No rigidity. No organomegaly. EXTREMITIES: No edema of feet. SKIN EXAMINATION: No rash or mass palpable. NEUROLOGICAL: Patient is awake, alert, oriented x3. Mood and affect normal. LABS: Hemoglobin 7.2, white count 13.3, BUN of 25, creatinine is 2.61. UA positive as mentioned above. DIAGNOSTIC IMPRESSION AND PLAN: Patient admitted to the hospital with sepsis in this patient who did have fever, tachycardia, elevated white count, source is likely urinary in this patient who did have chronic indwelling Koehler catheter not very clear when exactly this Koehler was changed. The patient did have previous history of hydronephrosis with catheter placement in the past with recent ultrasound continue to show some hydronephrosis likely representing a complicated urinary tract infection with secondary bacteremia. PLAN: 1. Cefepime dose to be adjusted to 2 gram q.12 and discontinue vancomycin as no gram- positive has been seen. 2. Repeat ultrasound of his kidney as the patient continued to show hydronephrosis. May benefit from repeat cystoscopy, possible stent placement. 3. We will follow on his clinical condition and culture to further adjust medication if needed. Thank you for this consultation. Will follow the patient along with you. MMODL / IJN: [id number] /
[2019-01-11 09:05] LABS: Calcium 8.4 mg/dL (8.4-10.2); Potassium 3.6 mmol/L (3.5-5.1)
[2019-01-11] MEDS: HEPARIN SODIUM,PORCINE 5,000 UNIT/ML 1 ML VIAL SQ SCH ×2 (09:36→23:23)
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
--- NOTE | 2019-01-11 12:26 | P.PN ---
Subjective Progress Note Date: 01/11/19 Principal diagnosis: Bacteremia Febrile overnight t max 101. Infectious Disease following. Awaiting CBC from today Objective - Vital Signs Vital signs: Vital Signs Temp 99.5 F 01/11/19 11:53 Pulse 74 01/11/19 11:53 Resp 16 01/11/19 11:53 BP 141/74 01/11/19 11:53 Pulse Ox 97 01/11/19 11:53 Intake & Output 01/10/19 01/11/19 01/11/19 18:59 06:59 18:59 Intake Total 1150 300 Output Total 1325 Balance 1150 -1025 Intake: Intake, IV Titration 1150 300 Amount Cefepime 2 gm In Sodium 100 Chloride 0.9% 100 ml @ 200 mls/hr IVPB Q24H [facility] Rx#:[id number] Sodium Chloride 0.9% 1, 800 300 000 ml @ 100 mls/hr IV . Q10H [facility] Rx#:[id number] Vancomycin 1,000 mg In 250 Sodium Chloride 0.9% 250 ml @ 125 mls/hr IVPB ONCE ONE Rx#:[id number] Output: Urine 1325 Uretheral (Koehler) 1000 Other: Voiding Method Indwelling Catheter Indwelling Catheter - Exam Gen: Appears chronically ill, awake alert, no distress Head: NC, NT Neck Supple Mouth: Dry no thrush No lymphadenopathy on exam Lungs: Diminished bibasilar, no increased effort Heart Tachy, Reg Abdomen, tender, Non distended Extremities: No edema Neuro: Non focal. - Labs CBC & Chem 7: 01/10/19 08:33 01/11/19 08:23 Labs: Abnormal Lab Results - Last 24 Hours (Table) 01/10/19 01/11/19 Range/Units 15:15 08:23 Chloride 114 H (98-107) mmol/L Carbon Dioxide 21 L (22-30) mmol/L BUN 21 H (9-20) mg/dL Creatinine 2.37 H (0.66-1.25) mg/dL Glucose 113 H (74-99) mg/dL Urine Protein 1+ H (Negative) Urine Blood Moderate H (Negative) Ur Leukocyte Esterase Large H (Negative) Urine RBC >182 H (0-5) /hpf Urine WBC 81 H (0-5) /hpf Urine WBC Clumps Many H (None) /hpf Urine Bacteria Few H (None) /hpf Microbiology - Last 24 Hours (Table) 01/09/19 17:41 Blood Culture Gram Stain - Final Blood Blood Culture - Final Klebsiella pneumoniae 01/09/19 18:26 Urine Culture - Preliminary Urine,Catheterized Gram Neg Bacilli Assessment and Plan Plan: Assessment and Rec: 1. Metastatic Colon Cancer: - Last treatment in November, been on hold since recent SBO, Surgery - Continue to hold 2. Bacteremia with Positive Blood Cultures of Gram Negative Bacilli - Infectious disease following - IV Antibiotic coverage - Urosepsis source ? 3. Recent Psudomonas UTI - Treated with Antibiotics - Acute on Chronic inferctions with indwelling catheter and stent - Urology is following 4. Fever - T max 101.1 overnight - Influenza negative - Positive blood cultures, as above - Gram neg/klebseilla - ID - Fevers improving 5. Normocytic Anemia: - Likely related to known malignancy, possible component of Renal disease, infection. - Exacerbated with recent surgery - Will hold off on iron studies or parental iron with active bacteremia 6. Acute on chronic renal insufficiency: - Nephrology and urology - Creatinine worsening today - Monitor closely Plan: - Continue supportive care for active infection - Await urology recs - Monitor Daily CBC and CMP - Transfusions hemoglobin less than 7 - Awaiting CBC from today - recheck CEA, no treatment since November Physician Attest: I have completed the full history and physical and developed the complete impression and plan, agree with above dictation, dictated as a scribe.
[2019-01-11 13:06] LABS: Basophils % (A) 0 %; Eosinophils # (A) 0.1 k/uL (0-0.7); Eosinophils % (A) 1 %; HCT 25.8 % (39.0-53.0); HGB 7.6 gm/dL (13.0-17.5); Hypochromasia Marked; Lymphocytes # (A) 0.7 k/uL (1.0-4.8); Lymphocytes % (A) 8 %; MCH 27.9 pg (25.0-35.0); MCHC 29.6 g/dL (31.0-37.0); MCV 94.1 fL (80.0-100.0); Mean Platelet Volume 7.7; Monocytes # (A) 0.4 k/uL (0-1.0); Monocytes % (A) 4 %; Neutrophils # (A) 8.5 k/uL (1.3-7.7); Neutrophils % (A) 86 %; Platelet Count 234 k/uL (150-450); RBC 2.74 m/uL (4.30-5.90); RDW 14.9 % (11.5-15.5); WBC 9.9 k/uL (3.8-10.6)
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
--- NOTE | 2019-01-11 17:35 | P.PN ---
Subjective Progress Note Date: 01/11/19 73-year-old white male well known to me. He has bilateral hydronephrosis due to metastatic colon cancer, for which he has undergone placement of bilateral ureteral stents. He has a history of incomplete bladder emptying secondary to BPH, and he has developed urinary retention. He currently has an indwelling Koehler catheter. He has been advised to have the catheter removed, and perform intermittent self-catheterization. However, he is now admitted with UTI and sepsis. Objective - Vital Signs Vital signs: Vital Signs Temp 98.1 F 01/11/19 04:58 Pulse 62 01/11/19 04:58 Resp 17 01/11/19 04:58 BP 119/68 01/11/19 04:58 Pulse Ox 95 01/11/19 04:58 Intake & Output 01/10/19 01/11/19 01/11/19 18:59 06:59 18:59 Intake Total 1150 300 Output Total 1325 Balance 1150 -1025 Intake: Intake, IV Titration 1150 300 Amount Cefepime 2 gm In Sodium 100 Chloride 0.9% 100 ml @ 200 mls/hr IVPB Q24H [facility] Rx#:[id number] Sodium Chloride 0.9% 1, 800 300 000 ml @ 100 mls/hr IV . Q10H [facility] Rx#:[id number] Vancomycin 1,000 mg In 250 Sodium Chloride 0.9% 250 ml @ 125 mls/hr IVPB ONCE ONE Rx#:[id number] Output: Urine 1325 Uretheral (Koehler) 1000 Other: Voiding Method Indwelling Catheter Indwelling Catheter - Exam On examination patient is comfortable awake is not in any acute distress. Blood pressure is 119/68. Heart rate of 62/m. Temperature 101.1. Examination of the heart S1 and S2 Exertion lungs bilateral breath sounds are heard no crackles or wheezing is heard Abdomen is soft nontender colostomy is noted. Examination lower ex Mittie shows no evidence of edema. No rashes or wounds are noted. 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 - Labs CBC & Chem 7: 01/11/19 08:23 01/11/19 08:23 Labs: Abnormal Lab Results - Last 24 Hours (Table) 01/10/19 01/11/19 Range/Units 15:15 08:23 Chloride 114 H (98-107) mmol/L Carbon Dioxide 21 L (22-30) mmol/L BUN 21 H (9-20) mg/dL Creatinine 2.37 H (0.66-1.25) mg/dL Glucose 113 H (74-99) mg/dL Urine Protein 1+ H (Negative) Urine Blood Moderate H (Negative) Ur Leukocyte Esterase Large H (Negative) Urine RBC >182 H (0-5) /hpf Urine WBC 81 H (0-5) /hpf Urine WBC Clumps Many H (None) /hpf Urine Bacteria Few H (None) /hpf Microbiology - Last 24 Hours (Table) 01/09/19 17:41 Blood Culture Gram Stain - Final Blood Blood Culture - Final Klebsiella pneumoniae 01/09/19 18:26 Urine Culture - Preliminary Urine,Catheterized Gram Neg Bacilli 01/09/19 17:41 Blood Culture - Final Blood Assessment and Plan Assessment: 1. Metastatic Colon Cancer: - Last treatment in November, been on hold since recent SBO, Surgery - Continue to hold 2. Bacteremia with Positive Blood Cultures of Gram Negative Bacilli - Infectious disease following - IV Antibiotic coverage in the form of cefepime 2 g IV every 24 hours -IV vancomycin has been discontinued due to worsening renal failure 3. Recent Pseudomonas UTI - Treated with Antibiotics - Acute on Chronic inferctions with indwelling catheter and stent - Urology is following 5. Normocytic Anemia: Transfuse if hemoglobin is less than 7 - Likely related to known malignancy, possible component of Renal disease, infection. - Exacerbated with recent surgery - Will hold off on iron studies or parental iron with active bacteremia 6. Acute on chronic renal insufficiency: Nephrology recommending to continue IV fluids and discontinuing IV vancomycin due to worsening renal failure - Nephrology and urology following - Creatinine worsening today - Monitor closely 7. DVT prophylaxis; subcu heparin CODE STATUS; full code
[2019-01-11] MEDS: FAMOTIDINE 20 MG TAB PO SCH (23:23)
[2019-01-12] MEDS: SODIUM CHLORIDE 0.9% 1,000 ML IV SCH ×2 (01:37→17:39)
--- NOTE | 2019-01-12 05:58 | PN ---
PROGRESS NOTE DATE OF SERVICE: 01/11/2019 REASON FOR FOLLOW UP: Klebsiella pneumoniae bacteremia secondary ( ) source. INTERVAL HISTORY: The patient is currently afebrile. The patient has been breathing comfortably. Denies any chest pain. No vomiting or any diarrhea. PHYSICAL EXAMINATION: Blood pressure is 140/74 with a pulse of 74, temperature of 99.5. He is 97% on room air. GENERAL DESCRIPTION: An elderly male lying in bed in no distress. RESPIRATORY SYSTEM: Unlabored breathing. Clear to auscultation anteriorly. HEART: S1, S2. Regular rate and rhythm. EXTREMITIES: No edema of feet. LABS: Hemoglobin is 7.6, white count normalized to 9.9 with a BUN of 21, creatinine is 2.6. DIAGNOSTIC IMPRESSION AND PLAN: Patient with Klebsiella bacteremia secondary to urinary source. The patient's Koehler to be discontinued today with plan for self catheterization. ( ) pathogen. Antibiotic will be adjusted to Rocephin 2 g daily and will monitor the clinical course closely. Continue supportive care. MMODL / IJN: [id number] /
[2019-01-12 08:24] LABS: Calcium 8.5 mg/dL (8.4-10.2); Potassium 3.4 mmol/L (3.5-5.1)
[2019-01-12 08:27] LABS: Basophils % (A) 0 %; Eosinophils # (A) 0.1 k/uL (0-0.7); Eosinophils % (A) 1 %; HCT 26.3 % (39.0-53.0); Hypochromasia Marked; Lymphocytes % (A) 12 %; MCH 27.9 pg (25.0-35.0); MCHC 30.4 g/dL (31.0-37.0); MCV 91.6 fL (80.0-100.0); Mean Platelet Volume 6.5; Monocytes # (A) 0.3 k/uL (0-1.0); Monocytes % (A) 3 %; Neutrophils # (A) 6.7 k/uL (1.3-7.7); Neutrophils % (A) 82 %; Platelet Count 286 k/uL (150-450); RBC 2.87 m/uL (4.30-5.90); RDW 14.4 % (11.5-15.5); WBC 8.2 k/uL (3.8-10.6)
[2019-01-12] MEDS: HEPARIN SODIUM,PORCINE 5,000 UNIT/ML 1 ML VIAL SQ SCH ×2 (08:58→20:52)
--- NOTE | 2019-01-12 12:38 | P.PN ---
Subjective Progress Note Date: 01/12/19 Principal diagnosis: This is a 73-year-old male seen in consultation because of acute kidney injury with bilateral hydronephrosis due to metastatic colon CA. He had undergone bilateral ureteral stent and has been improving. He had a Koehler catheter that has been discontinued. He claims that he is unable to eat very well because of loss of his upper dentures. No nausea vomiting diarrhea. His creatinine coming down slowly Objective - Vital Signs Vital signs: Vital Signs Temp 98.1 F 01/12/19 12:29 Pulse 69 01/12/19 12:29 Resp 19 01/12/19 12:29 BP 172/84 01/12/19 12:29 Pulse Ox 98 01/12/19 12:29 Intake & Output 01/11/19 01/12/19 01/12/19 18:59 06:59 18:59 Intake Total 800 950 Output Total 600 Balance 800 350 Intake: IV 800 Sodium Chloride 0.9% 1, 800 000 ml @ 100 mls/hr IV . Q10H [facility] Rx#:[id number] Oral 950 Output: Urine 600 Straight 600 Other: Voiding Method Indwelling Catheter Self-Catheterization Self-Catheterization # Voids 1 On examination he is awake alert oriented. He looks cachectic HEENT exam no JVP neck is supple no facial asymmetry Lungs are significant for bilateral coarse crackles not clear but cough is fairly good air entry bilaterally Heart sounds are unremarkable for any murmur rub gallop Abdomen soft nontender no masses felt Extremity exam was no edema Neurologically awake alert oriented. Patient has generalized weakness - Labs CBC & Chem 7: 01/12/19 07:40 01/12/19 07:40 Labs: Abnormal Lab Results - Last 24 Hours (Table) 01/11/19 01/11/19 01/12/19 Range/Units 08:23 08:23 07:40 RBC 2.74 L (4.30-5.90) m/uL Hgb 7.6 L (13.0-17.5) gm/dL Hct 25.8 L (39.0-53.0) % MCHC 29.6 L (31.0-37.0) g/dL Neutrophils # 8.5 H (1.3-7.7) k/uL Lymphocytes # 0.7 L (1.0-4.8) k/uL Potassium 3.4 L (3.5-5.1) mmol/L Chloride 112 H (98-107) mmol/L Creatinine 2.00 H (0.66-1.25) mg/dL Glucose 115 H (74-99) mg/dL Carcinoembryonic Ag 42.3 H (0.0-4.9) ng/mL 01/12/19 Range/Units 07:40 RBC 2.87 L (4.30-5.90) m/uL Hgb 8.0 L (13.0-17.5) gm/dL Hct 26.3 L (39.0-53.0) % MCHC 30.4 L (31.0-37.0) g/dL Neutrophils # (1.3-7.7) k/uL Lymphocytes # (1.0-4.8) k/uL Potassium (3.5-5.1) mmol/L Chloride (98-107) mmol/L Creatinine (0.66-1.25) mg/dL Glucose (74-99) mg/dL Carcinoembryonic Ag (0.0-4.9) ng/mL Microbiology - Last 24 Hours (Table) 01/09/19 18:26 Urine Culture - Final Urine,Catheterized Klebsiella pneumoniae 01/10/19 13:30 Blood Culture - Preliminary Blood No Growth after 24 hours 01/09/19 17:41 Blood Culture Gram Stain - Final Blood Blood Culture - Final Klebsiella pneumoniae Assessment and Plan Assessment: Impression 1. Metastatic colon CA with bilateral hydronephrosis status post bilateral ureteral stents with improving creatinine 2. Mild degree of non-gap acidosis bicarb is improving to 22. 3. Mild degree of hypokalemia potassium is 3.4, secondary to IV fluids normal saline and poor intake and rule out magnesium deficiency. Recommendation 1. Check serum magnesium level. 2. KCl 20 mEq 2 doses today
[2019-01-12] MEDS: POTASSIUM CHLORIDE ER 20 MEQ TAB.ER PO SCH ×3 (15:00→18:45)
--- NOTE | 2019-01-12 16:32 | P.PN ---
Subjective Progress Note Date: 01/12/19 Principal diagnosis: Gram-negative bacteremia; Klebsiella Klebsiella UTI Ureteral obstruction with hydronephrosis due to metastatic colon cancer 73-year-old white male well known to me. He has bilateral hydronephrosis due to metastatic colon cancer, for which he has undergone placement of bilateral ureteral stents. He has a history of incomplete bladder emptying secondary to BPH, and he has developed urinary retention. He currently has an indwelling Koehler catheter. He has been advised to have the catheter removed, and perform intermittent self-catheterization. However, he is now admitted with UTI and sepsis. 01/12/2019 Patient is seen and evaluated in the room at bedside for follow-up Vital signs remained stable with a temperature of 98.1 and blood pressure 172/84 Review of labs significant for hemoglobin of 8.0, potassium of 3.4 and BUN 14 with a creatinine of 2.0 Patient is status post bilateral ureteral stent; Koehler catheter is to be discontinued today ID is recommending to continue with IV antibiotics at this time Objective - Vital Signs Vital signs: Vital Signs Temp 98.1 F 01/12/19 05:00 Pulse 73 01/12/19 05:00 Resp 16 01/12/19 05:00 BP 176/72 01/12/19 05:00 Pulse Ox 97 01/12/19 05:00 Intake & Output 01/11/19 01/12/19 01/12/19 18:59 06:59 18:59 Intake Total 800 950 Output Total 600 Balance 800 350 Intake: IV 800 Sodium Chloride 0.9% 1, 800 000 ml @ 100 mls/hr IV . Q10H [facility] Rx#:[id number] Oral 950 Output: Urine 600 Straight 600 Other: Voiding Method Indwelling Catheter Self-Catheterization # Voids 1 - Exam On examination patient is comfortable awake is not in any acute distress. Blood pressure is 119/68. Heart rate of 62/m. Temperature 101.1. Examination of the heart S1 and S2 Exertion lungs bilateral breath sounds are heard no crackles or wheezing is heard Abdomen is soft nontender colostomy is noted. Examination lower ex Mittie shows no evidence of edema. No rashes or wounds are noted. 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 - Labs CBC & Chem 7: 01/12/19 07:40 01/12/19 07:40 Labs: Abnormal Lab Results - Last 24 Hours (Table) 01/11/19 01/11/19 01/12/19 Range/Units 08:23 08:23 07:40 RBC 2.74 L (4.30-5.90) m/uL Hgb 7.6 L (13.0-17.5) gm/dL Hct 25.8 L (39.0-53.0) % MCHC 29.6 L (31.0-37.0) g/dL Neutrophils # 8.5 H (1.3-7.7) k/uL Lymphocytes # 0.7 L (1.0-4.8) k/uL Potassium 3.4 L (3.5-5.1) mmol/L Chloride 112 H (98-107) mmol/L Creatinine 2.00 H (0.66-1.25) mg/dL Glucose 115 H (74-99) mg/dL Carcinoembryonic Ag 42.3 H (0.0-4.9) ng/mL 01/12/19 Range/Units 07:40 RBC 2.87 L (4.30-5.90) m/uL Hgb 8.0 L (13.0-17.5) gm/dL Hct 26.3 L (39.0-53.0) % MCHC 30.4 L (31.0-37.0) g/dL Neutrophils # (1.3-7.7) k/uL Lymphocytes # (1.0-4.8) k/uL Potassium (3.5-5.1) mmol/L Chloride (98-107) mmol/L Creatinine (0.66-1.25) mg/dL Glucose (74-99) mg/dL Carcinoembryonic Ag (0.0-4.9) ng/mL Microbiology - Last 24 Hours (Table) 01/09/19 18:26 Urine Culture - Final Urine,Catheterized Klebsiella pneumoniae 01/10/19 13:30 Blood Culture - Preliminary Blood No Growth after 24 hours 01/09/19 17:41 Blood Culture Gram Stain - Final Blood Blood Culture - Final Klebsiella pneumoniae Assessment and Plan Assessment: 1. Metastatic Colon Cancer: - Last treatment in November, been on hold since recent SBO, Surgery - Continue to hold 2. Bacteremia with Positive Blood Cultures of Gram Negative Bacilli - Infectious disease following - IV Antibiotic coverage in the form of cefepime 2 g IV every 24 hours -IV vancomycin has been discontinued due to worsening renal failure 3. Recent Pseudomonas UTI - Treated with Antibiotics - Acute on Chronic inferctions with indwelling catheter and stent - Urology is following 5. Normocytic Anemia: Transfuse if hemoglobin is less than 7 - Likely related to known malignancy, possible component of Renal disease, infection. - Exacerbated with recent surgery - Will hold off on iron studies or parental iron with active bacteremia 6. Acute on chronic renal insufficiency: Nephrology recommending to continue IV fluids and discontinuing IV vancomycin due to worsening renal failure - Nephrology and urology following - Creatinine worsening today - Monitor closely 7. DVT prophylaxis; subcu heparin CODE STATUS; full code Time with Patient: Greater than 30
[2019-01-12] MEDS: FAMOTIDINE 20 MG TAB PO SCH (20:52)
[2019-01-13] MEDS: SODIUM CHLORIDE 0.9% 1,000 ML IV SCH ×2 (04:20→17:44)
--- NOTE | 2019-01-13 06:18 | PN ---
PROGRESS NOTE DATE OF SERVICE: 01/12/2019. REASON FOR FOLLOWUP: Klebsiella pneumonia, bacteremia secondary to urinary source. INTERVAL HISTORY: The patient is currently afebrile. The patient is breathing comfortably. Denies any chest pain. No cough. No abdominal pain. The patient's Koehler has been discontinued and has been self catheterizing himself. PHYSICAL EXAMINATION: Blood pressure is 171/76, pulse of 87. Temperature 99.3. He is 95% on room air. General description is an elderly male lying in bed in no distress. Respiratory system: Unlabored breathing. Clear to auscultation anteriorly. Heart S1, S2. Regular rate and rhythm. ABDOMEN: Soft, no tenderness. Extremities are no edema of the feet. LABORATORY DATA: Hemoglobin 8.8, white count 8.2, BUN 14, creatinine . DIAGNOSTIC IMPRESSION AND PLAN: Patient with Klebsiella bacteremia secondary to catheter associated urinary tract infection. Follow up blood cultures have been negative. Infected Cornejo catheter has been discontinued. The patient on Rocephin to continue to finish therapy with oral antibiotic. Continue supportive care. MMODL / IJN: [id number] /
[2019-01-13 07:39] LABS: Basophils % (A) 0 %; Eosinophils % (A) 0 %; HCT 24.8 % (39.0-53.0); HGB 7.1 gm/dL (13.0-17.5); Hypochromasia Marked; Lymphocytes # (A) 0.9 k/uL (1.0-4.8); Lymphocytes % (A) 12 %; MCH 26.6 pg (25.0-35.0); MCHC 28.5 g/dL (31.0-37.0); MCV 93.2 fL (80.0-100.0); Mean Platelet Volume 7.3; Monocytes # (A) 0.4 k/uL (0-1.0); Monocytes % (A) 5 %; Neutrophils # (A) 6.1 k/uL (1.3-7.7); Neutrophils % (A) 81 %; Platelet Count 242 k/uL (150-450); RBC 2.66 m/uL (4.30-5.90); RDW 15.3 % (11.5-15.5); WBC 7.5 k/uL (3.8-10.6)
[2019-01-13 07:54] LABS: Calcium 8.2 mg/dL (8.4-10.2); Potassium 3.8 mmol/L (3.5-5.1)
[2019-01-13] MEDS: HEPARIN SODIUM,PORCINE 5,000 UNIT/ML 1 ML VIAL SQ SCH ×2 (08:48→20:56)
--- NOTE | 2019-01-13 12:07 | P.PN ---
Subjective Progress Note Date: 01/13/19 Principal diagnosis: This is a 73-year-old male seen in consultation because of acute kidney injury with bilateral hydronephrosis due to metastatic colon CA. He has had chronic hydronephrosis and had undergone bilateral ureteral stent and has been improving. He had a Koehler catheter that has been discontinued. He is self catheterizing 3 times a day. His creatinine went up this morning though from a low of 2- to 3.46. There is no clear-cut explanation. He has no fever chills no abdominal pain no hematuria. He continues to intermittently self catheterizes himself. Last 2 time he had 200-300 mL of urine output. No nausea vomiting diarrhea. Objective - Vital Signs Vital signs: Vital Signs Temp 97.5 F L 01/13/19 04:58 Pulse 82 01/13/19 08:25 Resp 16 01/13/19 08:25 BP 179/84 01/13/19 04:58 Pulse Ox 94 L 01/13/19 04:58 Intake & Output 01/12/19 01/13/19 01/13/19 18:59 06:59 18:59 Intake Total 1390 Output Total 693 Balance -693 1390 Intake: IV 800 Sodium Chloride 0.9% 1, 800 000 ml @ 100 mls/hr IV . Q10H [facility] Rx#:[id number] Oral 590 Output: Urine 350 Post Void Residual 343 Other: Voiding Method Self-Catheterization Self-Catheterization Self-Catheterization # Voids 2 On examination is awake alert oriented comfortable HEENT exam no JVP neck is supple no facial asymmetry Lungs clear to auscultation good air entry bilaterally Heart sounds are unremarkable for any murmur rub gallop Abdomen soft nontender no masses felt No suprapubic tenderness enlarged bladder was felt Extremity examination reveals no edema Neurologically awake alert oriented - Labs CBC & Chem 7: 01/13/19 07:28 01/13/19 07:28 Labs: Abnormal Lab Results - Last 24 Hours (Table) 01/13/19 01/13/19 Range/Units 07:28 07:28 RBC 2.66 L (4.30-5.90) m/uL Hgb 7.1 L (13.0-17.5) gm/dL Hct 24.8 L (39.0-53.0) % MCHC 28.5 L (31.0-37.0) g/dL Lymphocytes # 0.9 L (1.0-4.8) k/uL Chloride 117 H (98-107) mmol/L Carbon Dioxide 20 L (22-30) mmol/L Creatinine 3.46 H (0.66-1.25) mg/dL Glucose 102 H (74-99) mg/dL Calcium 8.2 L (8.4-10.2) mg/dL Microbiology - Last 24 Hours (Table) 01/10/19 13:30 Blood Culture - Preliminary Blood No Growth after 48 hours Assessment and Plan Assessment: Impression 1. Metastatic colon CA with bilateral hydronephrosis status post bilateral ureteral stents with improving creatinine, until yesterday and creatinine was 2 now this morning creatinine gone up significantly to 3.46. No clear-cut explanation will need to rule out upstream obstruction in one of the stents. 2. Mild degree of non-gap acidosis bicarb is 20. 3. Mild degree of hypokalemia potassium is 3.4, secondary to IV fluids normal saline and poor intake and rule out magnesium deficiency. Potassium improved to 3.8 magnesium was 1.7 Recommendation 1. Obtain ultrasound of the kidney. 2. Continue self-catheterization 3 times a day day. 4. Check post catheterization bladder scan
--- NOTE | 2019-01-13 13:50 | US ---
EXAMINATION TYPE: US kidneys/renal and bladder DATE OF EXAM: 01/13/2019 COMPARISON: US 12/25/2018 CLINICAL HISTORY: hydronephrosis. History of renal stent left side EXAM MEASUREMENTS: Right Kidney: 11.5 x 5.4 x 5.2 cm cm Left Kidney: 10.5 x 5.2 x 5.5 cm cm Right Kidney: Moderate hydronephrosis. There appears to be some prominence of the proximal ureter. Left Kidney: Mild hydronephrosis. Stent visualized Bladder: Not distended Bilateral Jets seen: No, see above No nephrolithiasis is seen. No masses are identified. IMPRESSION: Moderate right and mild left hydronephrosis. Some prominence of the right proximal ureter may be pres ent. Findings are similar to 12/25/2018
[2019-01-13] MEDS: FAMOTIDINE 20 MG TAB PO SCH (20:56)
--- NOTE | 2019-01-13 21:46 | P.PN ---
Subjective Progress Note Date: 01/13/19 Principal diagnosis: Bacteremia Feeling better, no acute events overnight Objective - Vital Signs Vital signs: Vital Signs Temp 98.4 F 01/13/19 11:51 Pulse 71 01/13/19 15:46 Resp 16 01/13/19 15:46 BP 175/89 01/13/19 11:51 Pulse Ox 100 01/13/19 11:51 Intake & Output 01/13/19 01/13/19 01/14/19 06:59 18:59 06:59 Intake Total 1390 160 Output Total 870 300 Balance 1390 -710 -300 Intake: IV 800 Sodium Chloride 0.9% 1, 800 000 ml @ 100 mls/hr IV . Q10H [facility] Rx#:[id number] Oral 590 160 Output: Urine 850 300 Straight 700 300 Post Void Residual 20 Other: Voiding Method Self-Catheterization Self-Catheterization # Voids 2 - Exam Gen: Appears chronically ill, awake alert, no distress Head: NC, NT Neck Supple Mouth: Dry no thrush No lymphadenopathy on exam Lungs: Diminished bibasilar, no increased effort Heart Tachy, Reg Abdomen, tender, Non distended Extremities: No edema Neuro: Non focal. - Labs CBC & Chem 7: 01/13/19 07:28 01/13/19 07:28 Labs: Abnormal Lab Results - Last 24 Hours (Table) 01/13/19 01/13/19 Range/Units 07:28 07:28 RBC 2.66 L (4.30-5.90) m/uL Hgb 7.1 L (13.0-17.5) gm/dL Hct 24.8 L (39.0-53.0) % MCHC 28.5 L (31.0-37.0) g/dL Lymphocytes # 0.9 L (1.0-4.8) k/uL Chloride 117 H (98-107) mmol/L Carbon Dioxide 20 L (22-30) mmol/L Creatinine 3.46 H (0.66-1.25) mg/dL Glucose 102 H (74-99) mg/dL Calcium 8.2 L (8.4-10.2) mg/dL Microbiology - Last 24 Hours (Table) 01/10/19 13:30 Blood Culture - Preliminary Blood No Growth after 72 hours Assessment and Plan Plan: Assessment and Rec: 1. Metastatic Colon Cancer: - Last treatment in November, been on hold since recent SBO, Surgery - Continue to hold 2. Bacteremia with Positive Blood Cultures of Gram Negative Bacilli - Infectious disease following - IV Antibiotic coverage - Urosepsis source ? 3. Recent Psudomonas UTI - Treated with Antibiotics - Acute on Chronic inferctions with indwelling catheter and stent - Urology is following 4. Fever - improved - Influenza negative - Positive blood cultures, as above - Gram neg/klebseilla - ID - Fevers improving 5. Normocytic Anemia: - Likely related to known malignancy, possible component of Renal disease, infection. - Exacerbated with recent surgery - Will hold off on iron studies or parental iron with active bacteremia 6. Acute on chronic renal insufficiency: - Nephrology and urology - Creatinine worsening today - Monitor closely Plan: - Hgb has decreased slightly, check in am along with iron studies, B12 - will continue to follow Physician Attest: I have completed the full history and physical and developed the complete impression and plan, agree with above dictation, dictated as a scribe.
--- NOTE | 2019-01-14 05:39 | PN ---
PROGRESS NOTE DATE OF SERVICE: 01/13/2019 REASON FOR FOLLOWUP VISIT: Klebsiella bacteremia secondary to urinary source. INTERVAL HISTORY: The patient is currently afebrile. The patient is breathing comfortably. The patient denies having any chest pain, shortness of breath or cough. No abdominal pain. No diarrhea. The patient says he has been doing well with self-catheterization. PHYSICAL EXAMINATION: On examination, his vital signs were stable with blood pressure of 169/84, pulse of 80, temperature 98. He is 97% on room air. General description is an elderly male lying in bed in no distress. RESPIRATORY SYSTEM: Unlabored breathing, clear to auscultation anteriorly. HEART: S1, S2. Regular rate and rhythm. ABDOMEN: Soft, no tenderness. LABS: Hemoglobin 7.1, white count 7.5. BUN of 16, creatinine 3.46. DIAGNOSTIC IMPRESSION AND PLAN: Patient with Klebsiella bacteremia secondary to urinary source. The patient is currently covered with . The patient's Koehler catheter has been discontinued. The patient , however, he was noticed to have a jump in his creatinine up to 3.46. Patient needs to monitor closely for any urinary retention. Currently on Rocephin with the plan to finish with oral Cipro. Continue with supportive care. MMODL / IJN: [id number] /
[2019-01-14] MEDS: HEPARIN SODIUM,PORCINE 5,000 UNIT/ML 1 ML VIAL SQ SCH ×2 (08:20→20:22)
--- NOTE | 2019-01-14 08:24 | P.PN ---
Subjective Patient is seen in follow-up for acute kidney injury on chronic kidney disease. Patient has chronic kidney disease stage III with baseline creatinine in the range of 1.3-1.5. Patient has history of bilateral hydronephrosis and has bilateral ureteral stents. He performs self catheterizations twice daily. He is currently also on antibiotics for UTI and bacteremia. Both blood and urine cultures are positive for Klebsiella pneumonia. Denies chest pain or shortness of breath. Bladder scan revealed no evidence of urinary retention. Vital signs are stable. General: The patient appeared well nourished and normally developed. HEENT: Head exam is unremarkable. Neck is without jugular venous distension. LUNGS: Lungs are clear to auscultation and percussion. Breath sounds decreased. HEART: Rate and Rhythm are regular. First and second heart sounds normal. No murmurs, rubs or gallops. ABDOMEN: Abdominal exam reveals normal bowel sounds. Non-tender and non- distended. No evidence of peritonitis. EXTREMITITES: No clubbing, cyanosis, or edema. Objective - Vital Signs Vital signs: Vital Signs Temp 97.9 F 01/14/19 05:00 Pulse 81 01/14/19 05:00 Resp 18 01/14/19 05:00 BP 169/76 01/14/19 05:00 Pulse Ox 98 01/14/19 05:00 Intake & Output 01/13/19 01/14/19 01/14/19 18:59 06:59 18:59 Intake Total 160 1100 Output Total 870 300 Balance -710 800 Intake: Intake, IV Titration 1100 Amount Sodium Chloride 0.9% 1, 1100 000 ml @ 100 mls/hr IV . Q10H [facility] Rx#:[id number] Oral 160 Output: Urine 850 300 Straight 700 300 Post Void Residual 20 Other: Voiding Method Self-Catheterization Self-Catheterization # Voids 2 - Labs CBC & Chem 7: 01/13/19 07:28 01/13/19 07:28 Labs: Microbiology - Last 24 Hours (Table) 01/10/19 13:30 Blood Culture - Preliminary Blood No Growth after 72 hours Assessment and Plan Plan: Assessment: 1. Acute kidney injury with concern for obstructive uropathy. Renal ultrasound from yesterday revealed moderate right-sided hydronephrosis and mild left-sided hydronephrosis. No evidence of urinary retention. Creatinine was up to 3.46 yesterday. Labs from today are pending. 2. History of hydronephrosis status post bilateral ureteral stents placement. Urology following. 3. Metastatic colon cancer. 4. Klebsiella pneumoniae bacteremia and UTI maintain on antibiotics. Infectious disease following. 5. Metabolic acidosis secondary to acute kidney injury and IV fluids. 6. Chronic kidney disease stage III with baseline creatinine in the range of 1.3-1.5 secondary to obstructive uropathy. 7. Anemia of chronic kidney disease. Rule out iron deficiency. Plan: Add oral sodium bicarbonate. Maintain normal saline at 100 mL an hour. Follow-up morning labs. Avoid nephrotoxins. Check iron studies. If no improvement in renal function, will reconsult urology.
[2019-01-14 09:45] LABS: Basophils % (A) 0 %; Eosinophils # (A) 0.1 k/uL (0-0.7); Eosinophils % (A) 2 %; HCT 26.4 % (39.0-53.0); HGB 7.9 gm/dL (13.0-17.5); Hypochromasia Marked; Lymphocytes # (A) 1.3 k/uL (1.0-4.8); Lymphocytes % (A) 17 %; MCH 27.3 pg (25.0-35.0); MCV 90.7 fL (80.0-100.0); Mean Platelet Volume 7.4; Monocytes # (A) 0.4 k/uL (0-1.0); Monocytes % (A) 5 %; Neutrophils # (A) 6.1 k/uL (1.3-7.7); Neutrophils % (A) 75 %; Platelet Count 352 k/uL (150-450); RBC 2.91 m/uL (4.30-5.90); RDW 15.3 % (11.5-15.5); WBC 8.1 k/uL (3.8-10.6)
[2019-01-14] MEDS: SODIUM CHLORIDE 0.9% 1,000 ML IV SCH ×3 (10:06→18:36)
[2019-01-14 10:08] LABS: Calcium 8.7 mg/dL (8.4-10.2)
[2019-01-14] MEDS: SODIUM BICARBONATE TAB 650 MG TAB PO SCH ×2 (10:08→20:22)
--- NOTE | 2019-01-14 10:26 | P.PN ---
Subjective Progress Note Date: 01/13/19 Principal diagnosis: Gram-negative bacteremia; Klebsiella Klebsiella UTI Ureteral obstruction with hydronephrosis due to metastatic colon cancer 73-year-old white male well known to me. He has bilateral hydronephrosis due to metastatic colon cancer, for which he has undergone placement of bilateral ureteral stents. He has a history of incomplete bladder emptying secondary to BPH, and he has developed urinary retention. He currently has an indwelling Koehler catheter. He has been advised to have the catheter removed, and perform intermittent self-catheterization. However, he is now admitted with UTI and sepsis. 01/12/2019 Patient is seen and evaluated in the room at bedside for follow-up Vital signs remained stable with a temperature of 98.1 and blood pressure 172/84 Review of labs significant for hemoglobin of 8.0, potassium of 3.4 and BUN 14 with a creatinine of 2.0 Patient is status post bilateral ureteral stent; Koehler catheter is to be discontinued today ID is recommending to continue with IV antibiotics at this time 01/13/2019 Patient is seen and evaluated in the room at bedside; patient has no specific complaints at this time Vital signs show blood pressure of 169/84, pulse of 80 and temperature 90.8 Lab work is significant for a hemoglobin of 7.1, white blood count of 7.5, BUN of 16 and creatinine 3.46 Patient's Koehler catheter has been removed; patient has had a significant jump in his creatinine up to 3.46; urology is following and recommending abdominal ultrasound Patient remains on IV Rocephin per ID recommendation; will be switched to Cipro at time of discharge Objective - Vital Signs Vital signs: Vital Signs Temp 98.4 F 01/13/19 11:51 Pulse 71 01/13/19 11:51 Resp 16 01/13/19 11:51 BP 175/89 01/13/19 11:51 Pulse Ox 100 01/13/19 11:51 Intake & Output 01/12/19 01/13/19 01/13/19 18:59 06:59 18:59 Intake Total 1390 160 Output Total 693 820 Balance -693 1390 -660 Intake: IV 800 Sodium Chloride 0.9% 1, 800 000 ml @ 100 mls/hr IV . Q10H [facility] Rx#:[id number] Oral 590 160 Output: Urine 350 800 Straight 700 Post Void Residual 343 20 Other: Voiding Method Self-Catheterization Self-Catheterization Self-Catheterization # Voids 2 2 - Exam On examination patient is comfortable awake is not in any acute distress. Blood pressure is 119/68. Heart rate of 62/m. Temperature 101.1. Examination of the heart S1 and S2 Exertion lungs bilateral breath sounds are heard no crackles or wheezing is heard Abdomen is soft nontender colostomy is noted. Examination lower ex Mittie shows no evidence of edema. No rashes or wounds are noted. 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 - Labs CBC & Chem 7: 01/14/19 08:41 01/14/19 08:41 Labs: Abnormal Lab Results - Last 24 Hours (Table) 01/13/19 01/13/19 Range/Units 07:28 07:28 RBC 2.66 L (4.30-5.90) m/uL Hgb 7.1 L (13.0-17.5) gm/dL Hct 24.8 L (39.0-53.0) % MCHC 28.5 L (31.0-37.0) g/dL Lymphocytes # 0.9 L (1.0-4.8) k/uL Chloride 117 H (98-107) mmol/L Carbon Dioxide 20 L (22-30) mmol/L Creatinine 3.46 H (0.66-1.25) mg/dL Glucose 102 H (74-99) mg/dL Calcium 8.2 L (8.4-10.2) mg/dL Microbiology - Last 24 Hours (Table) 01/10/19 13:30 Blood Culture - Preliminary Blood No Growth after 72 hours Assessment and Plan Assessment: 1. Metastatic Colon Cancer: - Last treatment in November, been on hold since recent SBO, Surgery - Continue to hold 2. Bacteremia with Positive Blood Cultures of Gram Negative Bacilli - Infectious disease following - IV Antibiotic coverage in the form of cefepime 2 g IV every 24 hours -IV vancomycin has been discontinued due to worsening renal failure 3. Recent Pseudomonas UTI - Treated with Antibiotics - Acute on Chronic inferctions with indwelling catheter and stent - Urology is following 5. Normocytic Anemia: Transfuse if hemoglobin is less than 7 - Likely related to known malignancy, possible component of Renal disease, infection. - Exacerbated with recent surgery - Will hold off on iron studies or parental iron with active bacteremia 6. Acute on chronic renal insufficiency: Nephrology recommending to continue IV fluids and discontinuing IV vancomycin due to worsening renal failure - Nephrology and urology following - Creatinine worsening today - Monitor closely 7. DVT prophylaxis; subcu heparin CODE STATUS; full code Time with Patient: Greater than 30
--- NOTE | 2019-01-14 16:39 | PN ---
PROGRESS NOTE DATE OF SERVICE: 01/14/2019 REASON FOR FOLLOWUP: Klebsiella bacteremia secondary to urinary source. INTERVAL HISTORY: The patient is currently afebrile. Patient is breathing comfortably. Denies having any chest pain or any cough. No abdominal pain, no diarrhea. PHYSICAL EXAMINATION: Blood pressure is 183/82 with a pulse of 70, temperature 97.7, he is 96% on room air. General description is a middle-aged male lying in bed in no distress. Respiratory System: Unlabored breathing, clear to auscultation anteriorly. Heart: S1, S2. Regular rate and rhythm. Abdomen: Soft, no tenderness. Extremities: No edema of the feet. LABS: Hemoglobin 8.1. BUN of 19, creatinine 4.19. DIAGNOSTIC IMPRESSION AND PLAN: Patient with Klebsiella bacteremia secondary to urinary source. This patient did have a chronic indwelling Koehler catheter, was discontinued. However, the patient showing worsening of his kidney function, more likely obstructive uropathy. May benefit from reinsertion of his Koehler. Continue with the Rocephin at this point. Once his kidney function stabilizes, transition to oral Cipro to finish a course of therapy. Continue supportive care. MMODL / IJN: [id number] /
[2019-01-14] MEDS: SODIUM CHLORIDE 0.45% 1,000 ML IV SCH (18:48)
[2019-01-14 18:50] LABS: Iron Saturation 6.25 (15.00-50.00)
[2019-01-14] MEDS: FAMOTIDINE 20 MG TAB PO SCH (20:22)
--- NOTE | 2019-01-14 22:04 | P.PN ---
Subjective Progress Note Date: 01/14/19 Principal diagnosis: UTI, sepsis In f/u today pt is feeling ok, no fever, vomiting, appetite is poor, mild abd cramping, he urinated on his own today, denied bleeding Objective - Vital Signs Vital signs: Vital Signs Temp 97.7 F 01/14/19 12:21 Pulse 78 01/14/19 12:21 Resp 20 01/14/19 12:21 BP 183/82 01/14/19 12:21 Pulse Ox 96 01/14/19 12:21 Intake & Output 01/13/19 01/14/19 01/14/19 18:59 06:59 18:59 Intake Total 160 1100 750 Output Total 870 300 Balance -710 800 750 Weight 60.781 kg Intake: IV 700 Sodium Chloride 0.9% 1, 700 000 ml @ 100 mls/hr IV . Q10H [facility] Rx#:[id number] Intake, IV Titration 1100 50 Amount Sodium Chloride 0.9% 1, 1100 000 ml @ 100 mls/hr IV . Q10H [facility] Rx#:[id number] cefTRIAXone 2 gm In 50 Sodium Chloride 0.9% 50 ml @ 100 mls/hr IVPB Q24HR [facility] Rx#:[id number] Oral 160 Output: Urine 850 300 Straight 700 300 Post Void Residual 20 Other: Voiding Method Self-Catheterization Self-Catheterization Toilet # Voids 2 - Constitutional General appearance: Present: average body habitus, cooperative, no acute distress - EENT Eyes: Present: anicteric sclerae, EOMI ENT: Present: hearing grossly normal, normal oropharynx - Respiratory Respiratory: bilateral: CTA - Cardiovascular Heart sounds: normal: S1, S2 - Peripheral edema leg Peripheral Edema: bilateral: None - Gastrointestinal General gastrointestinal: Present: normal bowel sounds, soft - Neurologic Neurologic: Present: CNII-XII intact - Musculoskeletal Musculoskeletal: Present: strength equal bilaterally - Psychiatric Psychiatric: Present: A&O x's 3, appropriate affect, intact judgment & insight - Labs CBC & Chem 7: 01/14/19 08:41 01/14/19 08:41 Labs: Abnormal Lab Results - Last 24 Hours (Table) 01/14/19 01/14/19 Range/Units 08:41 08:41 RBC 2.91 L (4.30-5.90) m/uL Hgb 7.9 L (13.0-17.5) gm/dL Hct 26.4 L (39.0-53.0) % MCHC 30.0 L (31.0-37.0) g/dL Sodium 147 H (137-145) mmol/L Chloride 120 H (98-107) mmol/L Carbon Dioxide 19 L (22-30) mmol/L Creatinine 4.19 H (0.66-1.25) mg/dL Glucose 105 H (74-99) mg/dL Microbiology - Last 24 Hours (Table) 01/10/19 13:30 Blood Culture - Preliminary Blood No Growth after 96 hours Assessment and Plan (1) Sepsis Narrative/Plan: UTI and bactremia with kl. pneu. Treatment per ID Current Visit: Yes Status: Acute Priority: High Code(s): A41.9 - SEPSIS, UNSPECIFIED ORGANISM SNOMED Code(s): 02377287 (2) UTI (urinary tract infection) Narrative/Plan: Multiple underlying causes make pt high risk for UTI-stent placement due to mechanical obstruction from malignancy, he had a campbell catheter for some time as well. He is being treated for infection per ID. Current Visit: Yes Status: Acute Priority: High Code(s): N39.0 - URINARY TRACT INFECTION, SITE NOT SPECIFIED SNOMED Code(s): 29094174 (3) Colon cancer metastasized to multiple sites Narrative/Plan: Pt had SBO last month and surgery. He was to begin another treatment for his cancer after he was recovered. He stated today that he does not want to do chemo because it made him have diarrhea. It was explained to pt that he actually had a SBO and that what he was experiencing was not diarrhea from chemo. He was treated for the same and that is better. He also felt that his problem urinating is from chemo, but that is actually due to tumor. Pt has not had any treatment for over a month now. Pt was encouraged to be treated for his current acute medical conditions then have a meeting to discuss his last 2 months of health challenges so it can be put into perspective. Options for treatment can be reviewed and pt can decide what is the best choice for him. He agreed to a meeting after he was feeling better so he could put all of the info together. All questions answered Current Visit: No Status: Chronic Priority: High Code(s): C18.9 - MALIGNANT NEOPLASM OF COLON, UNSPECIFIED SNOMED Code(s): 918898297 Plan: Attests: I have performed H&P and developed impression and plan of care of patient, discussed with dictator. I agree with dictated note, documented as a scribe.
--- NOTE | 2019-01-15 02:10 | P.PN ---
Subjective Progress Note Date: 01/14/19 Principal diagnosis: Gram-negative bacteremia; Klebsiella Klebsiella UTI Ureteral obstruction with hydronephrosis due to metastatic colon cancer 73-year-old white male well known to me. He has bilateral hydronephrosis due to metastatic colon cancer, for which he has undergone placement of bilateral ureteral stents. He has a history of incomplete bladder emptying secondary to BPH, and he has developed urinary retention. He currently has an indwelling Koehler catheter. He has been advised to have the catheter removed, and perform intermittent self-catheterization. However, he is now admitted with UTI and sepsis. 01/12/2019 Patient is seen and evaluated in the room at bedside for follow-up Vital signs remained stable with a temperature of 98.1 and blood pressure 172/84 Review of labs significant for hemoglobin of 8.0, potassium of 3.4 and BUN 14 with a creatinine of 2.0 Patient is status post bilateral ureteral stent; Koehler catheter is to be discontinued today ID is recommending to continue with IV antibiotics at this time 01/13/2019 Patient is seen and evaluated in the room at bedside; patient has no specific complaints at this time Vital signs show blood pressure of 169/84, pulse of 80 and temperature 90.8 Lab work is significant for a hemoglobin of 7.1, white blood count of 7.5, BUN of 16 and creatinine 3.46 Patient's Koehler catheter has been removed; patient has had a significant jump in his creatinine up to 3.46; urology is following and recommending abdominal ultrasound Patient remains on IV Rocephin per ID recommendation; will be switched to Cipro at time of discharge 01/14/2019 Patient is seen in follow-up; worsening acute kidney injury on chronic kidney disease, poss obstructive uropathy. Patient has chronic kidney disease stage III with baseline creatinine in the range of 1.3-1.5. Patient has history of bilateral hydronephrosis and has bilateral ureteral stents. He performs self catheterizations twice daily. He is currently also on antibiotics for UTI and bacteremia. Both blood and urine cultures are positive for Klebsiella pneumonia. Denies chest pain or shortness of breath. Bladder scan revealed no evidence of urinary retention. ID recommending to continue IV Rocephin till renal function improves and then complete antibiotic therapy with oral cipro Objective - Vital Signs Vital signs: Vital Signs Temp 97.9 F 01/14/19 05:00 Pulse 81 01/14/19 05:00 Resp 18 01/14/19 05:00 BP 169/76 01/14/19 05:00 Pulse Ox 98 01/14/19 05:00 Intake & Output 01/13/19 01/14/19 01/14/19 18:59 06:59 18:59 Intake Total 160 1100 Output Total 870 300 Balance -710 800 Intake: Intake, IV Titration 1100 Amount Sodium Chloride 0.9% 1, 1100 000 ml @ 100 mls/hr IV . Q10H [facility] Rx#:[id number] Oral 160 Output: Urine 850 300 Straight 700 300 Post Void Residual 20 Other: Voiding Method Self-Catheterization Self-Catheterization # Voids 2 - Exam On examination patient is comfortable awake is not in any acute distress. Blood pressure is 119/68. Heart rate of 62/m. Temperature 101.1. Examination of the heart S1 and S2 Exertion lungs bilateral breath sounds are heard no crackles or wheezing is heard Abdomen is soft nontender colostomy is noted. Examination lower ex Mittie shows no evidence of edema. No rashes or wounds are noted. CAN CAPPER exam is grossly intact. - Labs CBC & Chem 7: 01/14/19 08:41 01/14/19 08:41 Labs: Abnormal Lab Results - Last 24 Hours (Table) 01/14/19 01/14/19 Range/Units 08:41 08:41 RBC 2.91 L (4.30-5.90) m/uL Hgb 7.9 L (13.0-17.5) gm/dL Hct 26.4 L (39.0-53.0) % MCHC 30.0 L (31.0-37.0) g/dL Sodium 147 H (137-145) mmol/L Chloride 120 H (98-107) mmol/L Carbon Dioxide 19 L (22-30) mmol/L Creatinine 4.19 H (0.66-1.25) mg/dL Glucose 105 H (74-99) mg/dL Microbiology - Last 24 Hours (Table) 01/10/19 13:30 Blood Culture - Preliminary Blood No Growth after 72 hours Assessment and Plan Assessment: 1. Metastatic Colon Cancer: - Last treatment in November, been on hold since recent SBO, Surgery - Continue to hold 2. Bacteremia with Positive Blood Cultures of Gram Negative Bacilli - Infectious disease following - IV Antibiotic coverage in the form of cefepime 2 g IV every 24 hours -IV vancomycin has been discontinued due to worsening renal failure 3. Recent Pseudomonas UTI - Treated with Antibiotics - Acute on Chronic inferctions with indwelling catheter and stent - Urology is following 5. Normocytic Anemia: Transfuse if hemoglobin is less than 7 - Likely related to known malignancy, possible component of Renal disease, infection. - Exacerbated with recent surgery - Will hold off on iron studies or parental iron with active bacteremia 6. Acute on chronic renal insufficiency: Nephrology recommending to continue IV fluids and discontinuing IV vancomycin due to worsening renal failure - Nephrology and urology following - Creatinine worsening today - Monitor closely 7. DVT prophylaxis; subcu heparin CODE STATUS; full code Time with Patient: Greater than 30
[2019-01-15] MEDS: SODIUM CHLORIDE 0.45% 1,000 ML IV SCH ×3 (05:22→23:40)
[2019-01-15] MEDS ORDERED: IPRATROPIUM-ALBUTEROL 3 ML NEB INHALATION PRN (07:53)
[2019-01-15] MEDS: IPRATROPIUM-ALBUTEROL 3 ML NEB INHALATION SCH ×4 (08:43→21:13)
[2019-01-15] MEDS: SODIUM BICARBONATE TAB 650 MG TAB PO SCH ×3 (08:59→22:25)
[2019-01-15] MEDS: HEPARIN SODIUM,PORCINE 5,000 UNIT/ML 1 ML VIAL SQ SCH ×2 (08:59→22:25)
[2019-01-15] MEDS: guaiFENesin SYRUP 100MG/5ML 200 MG/10 ML CUP PO PRN ×2 (08:59→22:25)
--- NOTE | 2019-01-15 09:15 | XR ---
EXAMINATION TYPE: XR chest 1V portable DATE OF EXAM: 01/15/2019 COMPARISON: Prior chest x-ray 01/09/2018 HISTORY: Worsening dyspnea, shortness of breath TECHNIQUE: Single frontal view of the chest is obtained. FINDINGS: Right-sided Port-A-Cath is stable. There is been interval development of abnormal increase d density within the right upper and lower lobes. Heart size is likely stable. No evident pneumothora x. Pulmonary vascularity and jil not significantly changed. Nodularity in the lungs similar in appea sivakumar. IMPRESSION: Correlate for possible pneumonia versus atelectasis and associated effusion.
[2019-01-15 10:09] LABS: Basophils % (A) 0 %; Eosinophils # (A) 0.1 k/uL (0-0.7); Eosinophils % (A) 1 %; HCT 27.2 % (39.0-53.0); HGB 8.3 gm/dL (13.0-17.5); Hypochromasia Marked; Lymphocytes # (A) 1.4 k/uL (1.0-4.8); Lymphocytes % (A) 15 %; MCH 27.4 pg (25.0-35.0); MCHC 30.3 g/dL (31.0-37.0); MCV 90.4 fL (80.0-100.0); Mean Platelet Volume 7.1; Monocytes # (A) 0.5 k/uL (0-1.0); Monocytes % (A) 5 %; Neutrophils # (A) 7.6 k/uL (1.3-7.7); Neutrophils % (A) 78 %; Platelet Count 340 k/uL (150-450); RBC 3.01 m/uL (4.30-5.90); RDW 15.6 % (11.5-15.5); WBC 9.8 k/uL (3.8-10.6)
[2019-01-15 10:27] LABS: Calcium 8.6 mg/dL (8.4-10.2); Magnesium 1.6 mg/dL (1.6-2.3)
--- NOTE | 2019-01-15 10:50 | P.PN ---
Subjective Patient is seen in follow-up for acute kidney injury on chronic kidney disease. Patient has chronic kidney disease stage III with baseline creatinine in the range of 1.3-1.5. Patient has history of bilateral hydronephrosis and has bilateral ureteral stents. He performs self catheterizations twice daily. He is currently also on antibiotics for UTI and bacteremia. Both blood and urine cultures are positive for Klebsiella pneumonia. Denies chest pain or shortness of breath. Bladder scan revealed no evidence of urinary retention. No recent hypotension. Renal function worsening with creatinine up to 5.19 today. Vital signs are stable. General: The patient appeared well nourished and normally developed. HEENT: Head exam is unremarkable. Neck is without jugular venous distension. LUNGS: Lungs are clear to auscultation and percussion. Breath sounds decreased. HEART: Rate and Rhythm are regular. First and second heart sounds normal. No murmurs, rubs or gallops. ABDOMEN: Abdominal exam reveals normal bowel sounds. Non-tender and non- distended. No evidence of peritonitis. EXTREMITITES: No clubbing, cyanosis, or edema. Objective - Vital Signs Vital signs: Vital Signs Temp 98.2 F 01/15/19 07:14 Pulse 80 01/15/19 10:36 Resp 15 01/15/19 10:36 BP 178/85 01/15/19 07:14 Pulse Ox 94 L 01/15/19 07:14 Intake & Output 01/14/19 01/15/19 01/15/19 18:59 06:59 18:59 Intake Total 750 2620 Balance 750 2620 Weight 60.781 kg Intake: IV 700 800 Sodium Chloride 0.9% 1, 700 800 000 ml @ 100 mls/hr IV . Q10H [facility] Rx#:[id number] Intake, IV Titration 50 400 Amount Sodium Chloride 0.45% 1, 400 000 ml @ 100 mls/hr IV . Q10H [facility] Rx#:[id number] cefTRIAXone 2 gm In 50 Sodium Chloride 0.9% 50 ml @ 100 mls/hr IVPB Q24HR [facility] Rx#:[id number] Oral 1420 Other: Voiding Method Toilet Toilet Toilet Urinal Urinal # Voids 3 # Bowel Movements 2 - Labs CBC & Chem 7: 01/15/19 09:49 01/15/19 09:49 Labs: Abnormal Lab Results - Last 24 Hours (Table) 01/14/19 01/14/19 01/15/19 Range/Units 08:41 08:41 09:49 RBC (4.30-5.90) m/uL Hgb (13.0-17.5) gm/dL Hct (39.0-53.0) % MCHC (31.0-37.0) g/dL RDW (11.5-15.5) % Chloride 118 H (98-107) mmol/L Carbon Dioxide 18 L (22-30) mmol/L Creatinine 5.19 H (0.66-1.25) mg/dL Glucose 133 H (74-99) mg/dL Iron 13 L 12 L (65-175) ug/dL TIBC 208 L (228-460) ug/dL Iron Saturation 6.25 L (15.00-50.00) Ferritin 333.5 H (22.0-322.0) ng/mL 01/15/19 Range/Units 09:49 RBC 3.01 L (4.30-5.90) m/uL Hgb 8.3 L (13.0-17.5) gm/dL Hct 27.2 L (39.0-53.0) % MCHC 30.3 L (31.0-37.0) g/dL RDW 15.6 H (11.5-15.5) % Chloride (98-107) mmol/L Carbon Dioxide (22-30) mmol/L Creatinine (0.66-1.25) mg/dL Glucose (74-99) mg/dL Iron (65-175) ug/dL TIBC (228-460) ug/dL Iron Saturation (15.00-50.00) Ferritin (22.0-322.0) ng/mL Microbiology - Last 24 Hours (Table) 01/10/19 13:30 Blood Culture - Preliminary Blood No Growth after 96 hours Assessment and Plan Plan: Assessment: 1. Acute kidney injury with concern for obstructive uropathy. Renal ultrasound revealed moderate right-sided hydronephrosis and mild left-sided hydronephrosis. No evidence of urinary retention. Renal function declining - cr 5.19 today. Will also rule out AIN. 2. History of hydronephrosis status post bilateral ureteral stents placement. Urology following. 3. Metastatic colon cancer. 4. Klebsiella pneumoniae bacteremia and UTI maintain on antibiotics. Infectious disease following. 5. Metabolic acidosis secondary to acute kidney injury and IV fluids. 6. Chronic kidney disease stage III with baseline creatinine in the range of 1.3-1.5 secondary to obstructive uropathy. 7. Anemia of chronic kidney disease. Iron deficiency noted. 8. Hypernatremia secondary to lack of oral water intake. Better. Plan: Maintain half NS at current rate. Increase dose of oral sodium bicarbonate. Avoid nephrotoxins. Urology notified - await reccs. Repeat UA and Ucx. Check urine eosinophils. Hold off on IV iron due to bacteremia.
--- NOTE | 2019-01-15 12:56 | P.PN ---
Subjective Progress Note Date: 01/15/19 the patient's creatinine is climbing before. He has known bilateral hydronephrosis and has bilateral stents. They're not due to be changed for another month. He has had a urinary tract infection with sepsis. The catheter is out and he is voiding with a recorded residual of 0. I will replace his catheter to see if it affects his creatinine. If it does then it may mean he has a high pressure bladder. if it doesn't then he would need his ureteral catheters replaced.I will follow with you in Dr Kinsey's abscence Objective - Vital Signs Vital signs: Vital Signs Temp 98.2 F 01/15/19 07:14 Pulse 92 01/15/19 12:05 Resp 15 01/15/19 10:36 BP 178/85 01/15/19 07:14 Pulse Ox 94 L 01/15/19 07:14 Intake & Output 01/14/19 01/15/19 01/15/19 18:59 06:59 18:59 Intake Total 750 2620 Balance 750 2620 Weight 60.781 kg Intake: IV 700 800 Sodium Chloride 0.9% 1, 700 800 000 ml @ 100 mls/hr IV . Q10H [facility] Rx#:[id number] Intake, IV Titration 50 400 Amount Sodium Chloride 0.45% 1, 400 000 ml @ 100 mls/hr IV . Q10H [facility] Rx#:[id number] cefTRIAXone 2 gm In 50 Sodium Chloride 0.9% 50 ml @ 100 mls/hr IVPB Q24HR [facility] Rx#:[id number] Oral 1420 Other: Voiding Method Toilet Toilet Toilet Urinal Urinal # Voids 3 # Bowel Movements 2 - Labs CBC & Chem 7: 01/15/19 09:49 01/15/19 09:49 Labs: Abnormal Lab Results - Last 24 Hours (Table) 01/14/19 01/14/19 01/15/19 Range/Units 08:41 08:41 09:49 RBC (4.30-5.90) m/uL Hgb (13.0-17.5) gm/dL Hct (39.0-53.0) % MCHC (31.0-37.0) g/dL RDW (11.5-15.5) % Chloride 118 H (98-107) mmol/L Carbon Dioxide 18 L (22-30) mmol/L Creatinine 5.19 H (0.66-1.25) mg/dL Glucose 133 H (74-99) mg/dL Iron 13 L 12 L (65-175) ug/dL TIBC 208 L (228-460) ug/dL Iron Saturation 6.25 L (15.00-50.00) Ferritin 333.5 H (22.0-322.0) ng/mL 01/15/19 Range/Units 09:49 RBC 3.01 L (4.30-5.90) m/uL Hgb 8.3 L (13.0-17.5) gm/dL Hct 27.2 L (39.0-53.0) % MCHC 30.3 L (31.0-37.0) g/dL RDW 15.6 H (11.5-15.5) % Chloride (98-107) mmol/L Carbon Dioxide (22-30) mmol/L Creatinine (0.66-1.25) mg/dL Glucose (74-99) mg/dL Iron (65-175) ug/dL TIBC (228-460) ug/dL Iron Saturation (15.00-50.00) Ferritin (22.0-322.0) ng/mL Microbiology - Last 24 Hours (Table) 01/10/19 13:30 Blood Culture - Preliminary Blood No Growth after 96 hours
[2019-01-15 15:34] LABS: Appearance,Urine Clear (Clear); Bacteria,Urine Rare /hpf; Bilirubin,Urine Negative (Negative); Blood,Urine Moderate (Negative); Color,Urine Light Yellow; Glucose,Urine (UA) Negative (Negative); Ketones,Urine Negative (Negative); Leukocyte Esterase,Urine Large (Negative); Mucus,Urine Rare /hpf; Nitrite,Urine Negative (Negative); Protein,Urine Negative (Negative); RBC,Urine 153 /hpf (0-5); Specific Gravity,Urine 1.004 (1.001-1.035); Urobilinogen,Urine <2.0 mg/dL (<2.0); WBC,Urine 17 /hpf (0-5)
--- NOTE | 2019-01-15 16:45 | P.PN ---
Subjective Progress Note Date: 01/15/19 Principal diagnosis: UTI, sepsis In follow-up today patient is sitting up and eating his lunch. Denies fever, nausea, abdominal pain or bleeding. Is going to have a Koehler catheter placed with evaluation of renal function in the a.m. Objective - Vital Signs Vital signs: Vital Signs Temp 97.8 F 01/15/19 13:00 Pulse 90 01/15/19 13:00 Resp 18 01/15/19 13:00 BP 182/81 01/15/19 13:00 Pulse Ox 99 01/15/19 13:00 Intake & Output 01/14/19 01/15/19 01/15/19 18:59 06:59 18:59 Intake Total 750 2620 Output Total 1100 Balance 750 2620 -1100 Weight 60.781 kg Intake: IV 700 800 Sodium Chloride 0.9% 1, 700 800 000 ml @ 100 mls/hr IV . Q10H [facility] Rx#:[id number] Intake, IV Titration 50 400 Amount Sodium Chloride 0.45% 1, 400 000 ml @ 100 mls/hr IV . Q10H [facility] Rx#:[id number] cefTRIAXone 2 gm In 50 Sodium Chloride 0.9% 50 ml @ 100 mls/hr IVPB Q24HR [facility] Rx#:[id number] Oral 1420 Output: Urine 1100 Uretheral (Koehler) 50 Other: Voiding Method Toilet Toilet Indwelling Catheter Urinal # Voids 3 # Bowel Movements 2 - Exam WDWN, no acute distress, alert and oriented 4, patient is in better spirits today, pale, more interactive - Labs CBC & Chem 7: 01/15/19 09:49 01/15/19 09:49 Labs: Abnormal Lab Results - Last 24 Hours (Table) 01/14/19 01/14/19 01/15/19 Range/Units 08:41 08:41 09:49 RBC (4.30-5.90) m/uL Hgb (13.0-17.5) gm/dL Hct (39.0-53.0) % MCHC (31.0-37.0) g/dL RDW (11.5-15.5) % Chloride 118 H (98-107) mmol/L Carbon Dioxide 18 L (22-30) mmol/L Creatinine 5.19 H (0.66-1.25) mg/dL Glucose 133 H (74-99) mg/dL Iron 13 L 12 L (65-175) ug/dL TIBC 208 L (228-460) ug/dL Iron Saturation 6.25 L (15.00-50.00) Ferritin 333.5 H (22.0-322.0) ng/mL Urine Blood (Negative) Ur Leukocyte Esterase (Negative) Urine RBC (0-5) /hpf Urine WBC (0-5) /hpf Urine Bacteria (None) /hpf Urine Mucus (None) /hpf 01/15/19 01/15/19 Range/Units 09:49 13:00 RBC 3.01 L (4.30-5.90) m/uL Hgb 8.3 L (13.0-17.5) gm/dL Hct 27.2 L (39.0-53.0) % MCHC 30.3 L (31.0-37.0) g/dL RDW 15.6 H (11.5-15.5) % Chloride (98-107) mmol/L Carbon Dioxide (22-30) mmol/L Creatinine (0.66-1.25) mg/dL Glucose (74-99) mg/dL Iron (65-175) ug/dL TIBC (228-460) ug/dL Iron Saturation (15.00-50.00) Ferritin (22.0-322.0) ng/mL Urine Blood Moderate H (Negative) Ur Leukocyte Esterase Large H (Negative) Urine RBC 153 H (0-5) /hpf Urine WBC 17 H (0-5) /hpf Urine Bacteria Rare H (None) /hpf Urine Mucus Rare H (None) /hpf Microbiology - Last 24 Hours (Table) 01/10/19 13:30 Blood Culture - Preliminary Blood No Growth after 120 hours Assessment and Plan (1) Sepsis Narrative/Plan: UTI and bactremia with kl. pneu. Treatment per ID Current Visit: Yes Status: Acute Priority: High Code(s): A41.9 - SEPSIS, UNSPECIFIED ORGANISM SNOMED Code(s): 89045029 (2) UTI (urinary tract infection) Narrative/Plan: Urology and Nephrology are following patient closely. Reviewed their notes and plan Current Visit: Yes Status: Acute Priority: High Code(s): N39.0 - URINARY TRACT INFECTION, SITE NOT SPECIFIED SNOMED Code(s): 65516253 (3) Colon cancer metastasized to multiple sites Narrative/Plan: Reviewed some of the information as noted below, this was discussed yesterday but patient a little more confused. Patient does plan on following up and reviewing options for treatments once he is feeling better. Pt had SBO last month and surgery. He was to begin another treatment for his cancer after he was recovered. He stated today that he does not want to do chemo because it made him have diarrhea. It was explained to pt that he actually had a SBO and that what he was experiencing was not diarrhea from chemo. He was treated for the same and that is better. He also felt that his problem urinating is from chemo, but that is actually due to tumor. Pt has not had any treatment for over a month now. Pt was encouraged to be treated for his current acute medical conditions then have a meeting to discuss his last 2 months of health challenges so it can be put into perspective. Options for treatment can be reviewed and pt can decide what is the best choice for him. He agreed to a meeting after he was feeling better so he could put all of the info together. Current Visit: No Status: Chronic Priority: High Code(s): C18.9 - MALIGNANT NEOPLASM OF COLON, UNSPECIFIED SNOMED Code(s): 885620944
[2019-01-15] MEDS: FAMOTIDINE 20 MG TAB PO SCH (22:25)
--- NOTE | 2019-01-15 22:53 | PN ---
PROGRESS NOTE DATE OF SERVICE: 01/15/2019 REASON FOR FOLLOWUP: Klebsiella bacteremia secondary to urinary source. INTERVAL HISTORY: The patient is currently afebrile. The patient is breathing comfortably. The patient denies having any chest pain or abdominal pain. No nausea, vomiting, or any diarrhea. PHYSICAL EXAMINATION: Blood pressure 117/77 with a pulse of 88, temperature 98.6. He is 95% on room air. General description is an elderly male lying in bed in no distress. RESPIRATORY SYSTEM: Unlabored breathing. Clear to auscultation anteriorly. HEART: S1, S2. Regular rate and rhythm. ABDOMEN: Soft. No tenderness. LABS: Hemoglobin 8.3, white count 9.8. BUN of 20, creatinine 5.19. DIAGNOSTIC IMPRESSION AND PLAN: Patient with Klebsiella pneumoniae bacteremia. Source is urinary and grew the same pathogen after discontinuing the Koehler catheter. The patient did have persistently elevated creatinine has been replaced. Will monitor his creatinine closely. Continue the patient on Rocephin that will be transitioned to oral antibiotic on discharge. Continue with supportive care. MMODL / IJN: [id number] /
[2019-01-16] MEDS: IPRATROPIUM-ALBUTEROL 3 ML NEB INHALATION SCH ×4 (08:21→20:20)
[2019-01-16 09:42] LABS: Calcium 8.6 mg/dL (8.4-10.2); Magnesium 1.5 mg/dL (1.6-2.3); Potassium 4.2 mmol/L (3.5-5.1)
[2019-01-16] MEDS: SODIUM BICARBONATE TAB 650 MG TAB PO SCH ×3 (10:17→21:19)
[2019-01-16] MEDS: guaiFENesin SYRUP 100MG/5ML 200 MG/10 ML CUP PO PRN (10:17)
[2019-01-16] MEDS: HEPARIN SODIUM,PORCINE 5,000 UNIT/ML 1 ML VIAL SQ SCH ×2 (10:18→21:19)
--- NOTE | 2019-01-16 11:10 | P.PN ---
Subjective Patient is seen in follow-up for acute kidney injury on chronic kidney disease. Patient has chronic kidney disease stage III with baseline creatinine in the range of 1.3-1.5. Patient has history of bilateral hydronephrosis and has bilateral ureteral stents. He performs self catheterizations twice daily. However due to worsening renal function and hydronephrosis on renal ultrasound, Koehler catheter was inserted on January 15. Renal function is also improved. Creatinine 4.37 today. He is currently also on antibiotics for UTI and bacteremia. Both blood and urine cultures are positive for Klebsiella pneumonia. Denies chest pain or shortness of breath. Vital signs are stable. General: The patient appeared well nourished and normally developed. HEENT: Head exam is unremarkable. Neck is without jugular venous distension. LUNGS: Lungs are clear to auscultation and percussion. Breath sounds decreased. HEART: Rate and Rhythm are regular. First and second heart sounds normal. No murmurs, rubs or gallops. ABDOMEN: Abdominal exam reveals normal bowel sounds. Non-tender and non- distended. No evidence of peritonitis. EXTREMITITES: No clubbing, cyanosis, or edema. Objective - Vital Signs Vital signs: Vital Signs Temp 98.2 F 01/16/19 05:00 Pulse 82 01/16/19 08:30 Resp 22 01/16/19 05:00 BP 177/77 01/16/19 05:00 Pulse Ox 94 L 01/16/19 05:00 Intake & Output 01/15/19 01/16/19 01/16/19 18:59 06:59 18:59 Intake Total 1680 Output Total 1750 3400 500 Balance -1750 -1720 -500 Intake: Intake, IV Titration 1200 Amount Sodium Chloride 0.45% 1, 1200 000 ml @ 100 mls/hr IV . Q10H [facility] Rx#:[id number] Oral 480 Output: Urine 1750 3400 500 Straight 300 Uretheral (Koehler) 50 Other: Voiding Method Indwelling Catheter Indwelling Catheter Indwelling Catheter - Labs CBC & Chem 7: 01/15/19 09:49 01/16/19 07:58 Labs: Abnormal Lab Results - Last 24 Hours (Table) 01/15/19 01/16/19 Range/Units 13:00 07:58 Sodium 147 H (137-145) mmol/L Chloride 117 H (98-107) mmol/L Creatinine 4.37 H (0.66-1.25) mg/dL Magnesium 1.5 L (1.6-2.3) mg/dL Urine Blood Moderate H (Negative) Ur Leukocyte Esterase Large H (Negative) Urine RBC 153 H (0-5) /hpf Urine WBC 17 H (0-5) /hpf Urine Bacteria Rare H (None) /hpf Urine Mucus Rare H (None) /hpf Microbiology - Last 24 Hours (Table) 01/15/19 13:00 Urine Culture - Preliminary Urine,Voided 01/10/19 13:30 Blood Culture - Preliminary Blood No Growth after 120 hours Assessment and Plan Plan: Assessment: 1. Acute kidney injury secondary to obstructive uropathy. Renal ultrasound revealed moderate right-sided hydronephrosis and mild left-sided hydronephrosis. No evidence of urinary retention. Creatinine peaked at 5.19 this admission and is 4.37 today. Koehler catheter inserted January 15. Urinalysis shows no protein. Urine eosinophils negative. 2. History of hydronephrosis status post bilateral ureteral stents placement. Urology following. 3. Metastatic colon cancer. 4. Klebsiella pneumoniae bacteremia and UTI maintain on antibiotics. Infectious disease following. 5. Metabolic acidosis secondary to acute kidney injury and IV fluids. better. 6. Chronic kidney disease stage III with baseline creatinine in the range of 1.3-1.5 secondary to obstructive uropathy. 7. Anemia of chronic kidney disease. Iron deficiency noted. 8. Hypernatremia secondary to lack of oral water intake and post obstructive diuresis. Plan: Increase rate of half normal saline to 1 50 mL an hour. Maintain oral sodium bicarbonate. Avoid nephrotoxins. Hold off on IV iron due to bacteremia. Repeat electrolytes in the morning.
--- NOTE | 2019-01-16 12:14 | P.PN ---
Subjective Progress Note Date: 01/16/19 The Koehler catheters placed yesterday. The creatinine went from 5.1to 4.3. He diuresed a lot of fluid. This would be consistent with a high-pressure bladder refluxing urine up into the kidney causing the progression of the renal insufficiency. At present we'll leave indwelling catheter and see how his renal function goes. If it normalizes then we'll have to address the high pressure bladder as the cause of the progression of the renal insufficiency Objective - Vital Signs Vital signs: Vital Signs Temp 98.2 F 01/16/19 11:20 Pulse 86 01/16/19 11:38 Resp 16 01/16/19 11:20 BP 184/84 01/16/19 11:20 Pulse Ox 97 01/16/19 11:20 Intake & Output 01/15/19 01/16/19 01/16/19 18:59 06:59 18:59 Intake Total 1680 Output Total 1750 3400 500 Balance -1750 -1720 -500 Intake: Intake, IV Titration 1200 Amount Sodium Chloride 0.45% 1, 1200 000 ml @ 100 mls/hr IV . Q10H [facility] Rx#:[id number] Oral 480 Output: Urine 1750 3400 500 Straight 300 Uretheral (Koehler) 50 Other: Voiding Method Indwelling Catheter Indwelling Catheter Indwelling Catheter - Labs CBC & Chem 7: 01/15/19 09:49 01/16/19 07:58 Labs: Abnormal Lab Results - Last 24 Hours (Table) 01/15/19 01/16/19 Range/Units 13:00 07:58 Sodium 147 H (137-145) mmol/L Chloride 117 H (98-107) mmol/L Creatinine 4.37 H (0.66-1.25) mg/dL Magnesium 1.5 L (1.6-2.3) mg/dL Urine Blood Moderate H (Negative) Ur Leukocyte Esterase Large H (Negative) Urine RBC 153 H (0-5) /hpf Urine WBC 17 H (0-5) /hpf Urine Bacteria Rare H (None) /hpf Urine Mucus Rare H (None) /hpf Microbiology - Last 24 Hours (Table) 01/15/19 13:00 Urine Culture - Preliminary Urine,Voided 01/10/19 13:30 Blood Culture - Preliminary Blood No Growth after 120 hours
--- NOTE | 2019-01-16 16:24 | PN ---
PROGRESS NOTE DATE OF SERVICE: 01/16/2019. REASON FOR FOLLOWUP: Klebsiella bacteremia secondary to urinary source. INTERVAL HISTORY: The patient is currently afebrile. The patient is breathing comfortably. Denies having any chest pain or any cough. Koehler catheter had to be re-inserted because of incomplete emptying of the bladder and elevated creatinine. The patient denies having any diarrhea. PHYSICAL EXAMINATION: Blood pressure 182/84 with a pulse of 83, temperature 98.2. He is 97% on room air. General description is an elderly male up in the bed in no distress. RESPIRATORY SYSTEM: Unlabored breathing. Clear to auscultation anteriorly. HEART: S1, S2. Regular rate and rhythm. ABDOMEN: Soft. No tenderness. LABS: BUN of 19, creatinine 4.37. DIAGNOSTIC IMPRESSION AND PLAN: Patient with Klebsiella pneumoniae bacteremia secondary to urinary source. Follow-up blood and urine cultures have been negative. The patient did have slight worsening of his kidney function after his Koehler was discontinued and the patient was doing self- catheterization, and improvement in his kidney function with re-insertion of Koehler catheter. That should be continued for now the patient's kidney function continues to improve. Labs for his bacteremia and UTI. Plan will be to finish therapy with oral Cipro and close outpatient followup. Continue supportive care. MMODL / IJN: [id number] /
[2019-01-16] MEDS: SODIUM CHLORIDE 0.45% 1,000 ML IV SCH (17:38)
--- NOTE | 2019-01-16 17:46 | P.PN ---
Subjective Progress Note Date: 01/16/19 Principal diagnosis: UTI, sepsis In follow-up today patient looks better, he states feeling better, no fever, nausea, appetite is decent, no abdominal pain or bleeding, campbell catheter is not bothering him, he has had plenty of urine output with good decrease in kidney values. Objective - Vital Signs Vital signs: Vital Signs Temp 97.8 F 01/16/19 16:51 Pulse 97 01/16/19 16:51 Resp 18 01/16/19 16:51 BP 186/84 01/16/19 16:51 Pulse Ox 95 01/16/19 16:51 Intake & Output 01/15/19 01/16/19 01/16/19 18:59 06:59 18:59 Intake Total 1680 1150 Output Total 1750 3400 1200 Balance -1750 -1720 -50 Intake: Intake, IV Titration 1200 750 Amount Sodium Chloride 0.45% 1, 1200 700 000 ml @ 150 mls/hr IV . Q6H40M [facility] Rx#:[id number] cefTRIAXone 2 gm In 50 Sodium Chloride 0.9% 50 ml @ 100 mls/hr IVPB Q24HR [facility] Rx#:[id number] Oral 480 400 Output: Urine 1750 3400 1200 Straight 300 Uretheral (Campbell) 50 Other: Voiding Method Indwelling Catheter Indwelling Catheter Indwelling Catheter - Constitutional General appearance: Present: cooperative, no acute distress, thin - EENT Eyes: Present: anicteric sclerae ENT: Present: hearing grossly normal - Respiratory Respiratory: bilateral: rales (few scattered posteriorly) - Cardiovascular Heart sounds: normal: S1, S2 - Gastrointestinal General gastrointestinal: Present: normal bowel sounds, soft - Integumentary Integumentary: Present: pale - Neurologic Neurologic: Present: CNII-XII intact - Musculoskeletal Musculoskeletal: Present: generalized weakness - Psychiatric Psychiatric: Present: A&O x's 3, appropriate affect, intact judgment & insight - Labs CBC & Chem 7: 01/15/19 09:49 01/16/19 07:58 Labs: Abnormal Lab Results - Last 24 Hours (Table) 01/16/19 Range/Units 07:58 Sodium 147 H (137-145) mmol/L Chloride 117 H (98-107) mmol/L Creatinine 4.37 H (0.66-1.25) mg/dL Magnesium 1.5 L (1.6-2.3) mg/dL Microbiology - Last 24 Hours (Table) 01/10/19 13:30 Blood Culture - Final Blood No Growth after 144 hours 01/15/19 13:00 Urine Culture - Preliminary Urine,Voided Assessment and Plan (1) Sepsis Narrative/Plan: UTI and bactremia with kl. pneu. Treatment per ID Current Visit: Yes Status: Acute Priority: High Code(s): A41.9 - SEPSIS, UNSPECIFIED ORGANISM SNOMED Code(s): 36395201 (2) UTI (urinary tract infection) Narrative/Plan: Urology and Nephrology are following patient closely. Reviewed their notes and plan Current Visit: Yes Status: Acute Priority: High Code(s): N39.0 - URINARY TRACT INFECTION, SITE NOT SPECIFIED SNOMED Code(s): 64229008 (3) Colon cancer metastasized to multiple sites Narrative/Plan: Patient is much more alert today and does plan on following up and reviewing options for treatment after discharge. Current Visit: No Status: Chronic Priority: High Code(s): C18.9 - MALIGNANT NEOPLASM OF COLON, UNSPECIFIED SNOMED Code(s): 558497625
[2019-01-16] MEDS: FAMOTIDINE 20 MG TAB PO SCH (21:19)
[2019-01-17] MEDS: SODIUM CHLORIDE 0.45% 1,000 ML IV SCH ×3 (01:53→20:13)
[2019-01-17 08:37] LABS: Calcium 8.4 mg/dL (8.4-10.2); Magnesium 1.3 mg/dL (1.6-2.3); Potassium 3.4 mmol/L (3.5-5.1)
[2019-01-17] MEDS: IPRATROPIUM-ALBUTEROL 3 ML NEB INHALATION SCH ×4 (09:30→19:44)
[2019-01-17] MEDS ORDERED: POTASSIUM CHLORIDE ER 20 MEQ TAB.ER PO STA (10:05)
--- NOTE | 2019-01-17 10:07 | P.PN ---
Subjective Patient is seen in follow-up for acute kidney injury on chronic kidney disease. Patient has chronic kidney disease stage III with baseline creatinine in the range of 1.3-1.5. Patient has history of bilateral hydronephrosis and has bilateral ureteral stents. He performs self catheterizations twice daily. However due to worsening renal function and hydronephrosis on renal ultrasound, Koehler catheter was inserted on January 15. Renal function is also improved. Creatinine 2.65 today. He is currently also on antibiotics for UTI and bacteremia. Both blood and urine cultures are positive for Klebsiella pneumonia. Denies chest pain or shortness of breath. Vital signs are stable. General: The patient appeared well nourished and normally developed. HEENT: Head exam is unremarkable. Neck is without jugular venous distension. LUNGS: Lungs are clear to auscultation and percussion. Breath sounds decreased. HEART: Rate and Rhythm are regular. First and second heart sounds normal. No murmurs, rubs or gallops. ABDOMEN: Abdominal exam reveals normal bowel sounds. Non-tender and non- distended. No evidence of peritonitis. EXTREMITITES: No clubbing, cyanosis, or edema. Objective - Vital Signs Vital signs: Vital Signs Temp 96.4 F L 01/17/19 05:00 Pulse 84 01/17/19 09:41 Resp 16 01/17/19 05:00 BP 173/81 01/17/19 05:00 Pulse Ox 97 01/17/19 05:00 Intake & Output 01/16/19 01/17/19 01/17/19 18:59 06:59 18:59 Intake Total 1150 1180 Output Total 1200 3400 Balance -50 -2220 Weight 60.781 kg Intake: Intake, IV Titration 750 Amount Sodium Chloride 0.45% 1, 700 000 ml @ 150 mls/hr IV . Q6H40M [facility] Rx#:[id number] cefTRIAXone 2 gm In 50 Sodium Chloride 0.9% 50 ml @ 100 mls/hr IVPB Q24HR [facility] Rx#:[id number] Oral 400 1180 Output: Urine 1200 3400 Straight 2700 Other: Voiding Method Indwelling Catheter Indwelling Catheter # Voids 3 - Labs CBC & Chem 7: 01/15/19 09:49 01/17/19 07:32 Labs: Abnormal Lab Results - Last 24 Hours (Table) 01/17/19 Range/Units 07:32 Sodium 147 H (137-145) mmol/L Potassium 3.4 L (3.5-5.1) mmol/L Chloride 112 H (98-107) mmol/L Creatinine 3.65 H (0.66-1.25) mg/dL Magnesium 1.3 L (1.6-2.3) mg/dL Microbiology - Last 24 Hours (Table) 01/15/19 13:00 Urine Culture - Final Urine,Voided 01/10/19 13:30 Blood Culture - Final Blood No Growth after 144 hours Assessment and Plan Plan: Assessment: 1. Acute kidney injury secondary to obstructive uropathy. Renal ultrasound revealed moderate right-sided hydronephrosis and mild left-sided hydronephrosis. No evidence of urinary retention. Creatinine peaked at 5.19 this admission and is 3.65 today. Koehler catheter inserted January 15. Urinalysis shows no protein. Urine eosinophils negative. 2. History of hydronephrosis status post bilateral ureteral stents placement. Case discussed with urology. He appears to have a high pressure bladder leading to reflux. Appears to be improving post-Koehler catheter insertion. 3. Metastatic colon cancer. 4. Klebsiella pneumoniae bacteremia and UTI maintain on antibiotics. Infectious disease following. 5. Metabolic acidosis secondary to acute kidney injury and IV fluids. better. 6. Chronic kidney disease stage III with baseline creatinine in the range of 1.3-1.5 secondary to obstructive uropathy. 7. Anemia of chronic kidney disease. Iron deficiency noted. 8. Hypernatremia secondary to lack of oral water intake and post obstructive diuresis. 9. Hypokalemia secondary to hypomagnesemia and postobstructive diuresis. 10. Hypomagnesemia from poor oral intake and diuresis. Plan: I will change IV fluids to D5W to be run at 100 mL an hour. Maintain oral sodium bicarbonate. Replace potassium. 40 mEq today. Replace magnesium. 3 g IV today. Avoid nephrotoxins. Hold off on IV iron due to bacteremia. Repeat electrolytes in the morning.
[2019-01-17] MEDS: HEPARIN SODIUM,PORCINE 5,000 UNIT/ML 1 ML VIAL SQ SCH ×2 (10:22→21:16)
[2019-01-17] MEDS: SODIUM BICARBONATE TAB 650 MG TAB PO SCH ×3 (10:23→21:05)
[2019-01-17] MEDS: guaiFENesin SYRUP 100MG/5ML 200 MG/10 ML CUP PO PRN (10:23)
[2019-01-17] MEDS: MAGNESIUM SULFATE-D5W PMX 1 GM in DEXTROSE/WATER 1 100ML.BAG IVPB SCH ×3 (11:22→15:19)
--- NOTE | 2019-01-17 11:49 | P.PN ---
Subjective Progress Note Date: 01/17/19 The creatinine continues to come down. He is 3.65. He should be discharged home with the catheter and follow up with Dr. Kinsey Objective - Vital Signs Vital signs: Vital Signs Temp 96.4 F L 01/17/19 05:00 Pulse 84 01/17/19 09:41 Resp 16 01/17/19 05:00 BP 173/81 01/17/19 05:00 Pulse Ox 97 01/17/19 05:00 Intake & Output 01/16/19 01/17/19 01/17/19 18:59 06:59 18:59 Intake Total 1150 1180 Output Total 1200 3400 Balance -50 -2220 Weight 60.781 kg Intake: Intake, IV Titration 750 Amount Sodium Chloride 0.45% 1, 700 000 ml @ 150 mls/hr IV . Q6H40M [facility] Rx#:[id number] cefTRIAXone 2 gm In 50 Sodium Chloride 0.9% 50 ml @ 100 mls/hr IVPB Q24HR [facility] Rx#:[id number] Oral 400 1180 Output: Urine 1200 3400 Straight 2700 Other: Voiding Method Indwelling Catheter Indwelling Catheter Indwelling Catheter # Voids 3 - Labs CBC & Chem 7: 01/15/19 09:49 01/17/19 07:32 Labs: Abnormal Lab Results - Last 24 Hours (Table) 01/17/19 Range/Units 07:32 Sodium 147 H (137-145) mmol/L Potassium 3.4 L (3.5-5.1) mmol/L Chloride 112 H (98-107) mmol/L Creatinine 3.65 H (0.66-1.25) mg/dL Magnesium 1.3 L (1.6-2.3) mg/dL Microbiology - Last 24 Hours (Table) 01/15/19 13:00 Urine Culture - Final Urine,Voided 01/10/19 13:30 Blood Culture - Final Blood No Growth after 144 hours
[2019-01-17] MEDS: DEXTROSE 5% IN WATER 1,000 ML IV SCH (15:44)
--- NOTE | 2019-01-17 19:12 | P.PN ---
Subjective Progress Note Date: 01/17/19 Principal diagnosis: UTI, sepsis In follow-up patient states feeling much better. His cough has decreased in frequency and intensity, no fevers, nausea, diarrhea or bleeding. Koehler catheter is not causing him discomfort, very good output Objective - Vital Signs Vital signs: Vital Signs Temp 96.4 F L 01/17/19 05:00 Pulse 88 01/17/19 12:12 Resp 16 01/17/19 05:00 BP 173/81 01/17/19 05:00 Pulse Ox 97 01/17/19 05:00 Intake & Output 01/16/19 01/17/19 01/17/19 18:59 06:59 18:59 Intake Total 1150 1180 2090 Output Total 1200 3400 Balance -50 -2220 2090 Weight 60.781 kg Intake: Intake, IV Titration 750 900 Amount Magnesium Sulfate-D5w Pmx 100 1 gm In Dextrose/Water 1 100ml.bag @ 100 mls/hr IVPB Q1H [facility] Rx#: [id number] Sodium Chloride 0.45% 1, 700 800 000 ml @ 150 mls/hr IV . Q6H40M [facility] Rx#:[id number] cefTRIAXone 2 gm In 50 Sodium Chloride 0.9% 50 ml @ 100 mls/hr IVPB Q24HR [facility] Rx#:[id number] Oral 400 1180 1190 Output: Urine 1200 3400 Straight 2700 Other: Voiding Method Indwelling Catheter Indwelling Catheter Indwelling Catheter # Voids 3 - Constitutional General appearance: Present: cooperative, no acute distress, thin - EENT Eyes: Present: anicteric sclerae, EOMI ENT: Present: hearing grossly normal - Respiratory Respiratory: bilateral: CTA, rales (few scattered anteriorly) - Cardiovascular Rhythm: regular Heart sounds: normal: S1, S2 Abnormal Heart Sounds: Absent: systolic murmur, diastolic murmur, rub, S3 Gallop , S4 Gallop, click, other - Peripheral edema leg Peripheral Edema: bilateral: None - Gastrointestinal General gastrointestinal: Present: normal bowel sounds, soft - Integumentary Integumentary Comment(s): there is some better color to patient's cheeks Integumentary: Present: pale - Neurologic Neurologic: Present: CNII-XII intact - Musculoskeletal Musculoskeletal: Present: generalized weakness, strength equal bilaterally - Psychiatric Psychiatric: Present: A&O x's 3, appropriate affect, intact judgment & insight - Labs CBC & Chem 7: 01/15/19 09:49 01/17/19 07:32 Labs: Abnormal Lab Results - Last 24 Hours (Table) 01/17/19 Range/Units 07:32 Sodium 147 H (137-145) mmol/L Potassium 3.4 L (3.5-5.1) mmol/L Chloride 112 H (98-107) mmol/L Creatinine 3.65 H (0.66-1.25) mg/dL Magnesium 1.3 L (1.6-2.3) mg/dL Microbiology - Last 24 Hours (Table) 01/15/19 13:00 Urine Culture - Final Urine,Voided 01/10/19 13:30 Blood Culture - Final Blood No Growth after 144 hours Assessment and Plan (1) Sepsis Narrative/Plan: Most recent blood cultures are negative. Vital sign pattern is stable. Patient is being followed by infectious disease. Current Visit: Yes Status: Resolved Priority: High Code(s): A41.9 - SEPSIS , UNSPECIFIED ORGANISM SNOMED Code(s): 76310130 (2) UTI (urinary tract infection) Current Visit: Yes Status: Resolved Priority: High Code(s): N39.0 - URINARY TRACT INFECTION, SITE NOT SPECIFIED SNOMED Code(s): 39506511 (3) Colon cancer metastasized to multiple sites Narrative/Plan: Plan for following up and reviewing options for treatment after discharge. Current Visit: No Status: Chronic Priority: High Code(s): C18.9 - MALIGNANT NEOPLASM OF COLON, UNSPECIFIED SNOMED Code(s): 514524958
--- NOTE | 2019-01-17 20:00 | P.PN ---
Subjective Progress Note Date: 01/15/19 Interval history:Gram-negative bacteremia; Klebsiella Klebsiella UTI Ureteral obstruction with hydronephrosis due to metastatic colon cancer 73-year-old white male well known to me. He has bilateral hydronephrosis due to metastatic colon cancer, for which he has undergone placement of bilateral ureteral stents. He has a history of incomplete bladder emptying secondary to BPH, and he has developed urinary retention. He currently has an indwelling Koehler catheter. He has been advised to have the catheter removed, and perform intermittent self-catheterization. However, he is now admitted with UTI and sepsis. 01/12/2019 Patient is seen and evaluated in the room at bedside for follow-up Vital signs remained stable with a temperature of 98.1 and blood pressure 172/84 Review of labs significant for hemoglobin of 8.0, potassium of 3.4 and BUN 14 with a creatinine of 2.0 Patient is status post bilateral ureteral stent; Koehler catheter is to be discontinued today ID is recommending to continue with IV antibiotics at this time 01/13/2019 Patient is seen and evaluated in the room at bedside; patient has no specific complaints at this time Vital signs show blood pressure of 169/84, pulse of 80 and temperature 90.8 Lab work is significant for a hemoglobin of 7.1, white blood count of 7.5, BUN of 16 and creatinine 3.46 Patient's Koehler catheter has been removed; patient has had a significant jump in his creatinine up to 3.46; urology is following and recommending abdominal ultrasound Patient remains on IV Rocephin per ID recommendation; will be switched to Cipro at time of discharge 01/14/2019 Patient is seen in follow-up; worsening acute kidney injury on chronic kidney disease, poss obstructive uropathy. Patient has chronic kidney disease stage III with baseline creatinine in the range of 1.3-1.5. Patient has history of bilateral hydronephrosis and has bilateral ureteral stents. He performs self catheterizations twice daily. He is currently also on antibiotics for UTI and bacteremia. Both blood and urine cultures are positive for Klebsiella pneumonia. Denies chest pain or shortness of breath. Bladder scan revealed no evidence of urinary retention. ID recommending to continue IV Rocephin till renal function improves and then complete antibiotic therapy with oral cipro 01/15/2019 both urine and blood cultures positive for Klebsiella pneumoniae. Maintained on Rocephin. Afebrile. Poor appetite. Denies nausea or vomiting. Renal function worsening, creatinine 5.19. Denies chest pain, palpitations or shortness of breath. Denies abdominal pain. Objective - Vital Signs Vital signs: Vital Signs Temp 98.6 F 01/15/19 20:48 Pulse 90 01/15/19 21:28 Resp 24 01/15/19 20:48 BP 170/77 01/15/19 20:48 Pulse Ox 95 01/15/19 20:48 Intake & Output 01/15/19 01/15/19 01/16/19 06:59 18:59 06:59 Intake Total 2620 640 Output Total 1750 1100 Balance 2620 -1750 -460 Intake: IV 800 Sodium Chloride 0.9% 1, 800 000 ml @ 100 mls/hr IV . Q10H [facility] Rx#:[id number] Intake, IV Titration 400 400 Amount Sodium Chloride 0.45% 1, 400 400 000 ml @ 100 mls/hr IV . Q10H [facility] Rx#:[id number] Oral 1420 240 Output: Urine 1750 1100 Uretheral (Koehler) 50 Other: Voiding Method Toilet Indwelling Catheter Urinal # Voids 3 # Bowel Movements 2 - Exam PHYSICAL EXAM: VITAL SIGNS: [As above] GENERAL: Sitting up in bed, tired appearing HEENT: Conjunctivae normal. eyes normal. NECK: No JVD. No thyroid enlargement. No LNs CARDIOVASCULAR: S1, S2 muffled. No murmur RESPIRATION: Unlabored, Breath sounds diminished in the bases. No rhonchi or crackles. No bronchial breathing. ABDOMEN: Soft, nontender . Nondistended. Functioning colostomy. No guarding. no masses palpable. Bowel sounds heard. LEGS: No edema. no swelling PSYCHIATRY: Alert and oriented -3, mood and affect normal. NERVOUS SYSTEM: Cranial N 2-12 grossly normal. Moves all 4 limbs. Diffuse weakness No focal deficits. Skin: no ulcer no rash Joints: No active swelling. No inflammation. Lymphatic system. No LN neck axilla or groin. - Labs CBC & Chem 7: 01/15/19 09:49 01/17/19 07:32 Labs: Abnormal Lab Results - Last 24 Hours (Table) 01/15/19 01/15/19 01/15/19 Range/Units 09:49 09:49 13:00 RBC 3.01 L (4.30-5.90) m/uL Hgb 8.3 L (13.0-17.5) gm/dL Hct 27.2 L (39.0-53.0) % MCHC 30.3 L (31.0-37.0) g/dL RDW 15.6 H (11.5-15.5) % Chloride 118 H (98-107) mmol/L Carbon Dioxide 18 L (22-30) mmol/L Creatinine 5.19 H (0.66-1.25) mg/dL Glucose 133 H (74-99) mg/dL Urine Blood Moderate H (Negative) Ur Leukocyte Esterase Large H (Negative) Urine RBC 153 H (0-5) /hpf Urine WBC 17 H (0-5) /hpf Urine Bacteria Rare H (None) /hpf Urine Mucus Rare H (None) /hpf Microbiology - Last 24 Hours (Table) 01/15/19 13:00 Urine Culture - Preliminary Urine,Voided 01/10/19 13:30 Blood Culture - Preliminary Blood No Growth after 120 hours Assessment and Plan Assessment: -Sepsis secondary to Klebsiella pneumoniae bacteremia secondary to acute UTI with Klebsiella pneumoniae. Koehler catheter has been replaced. -Acute renal failure, possible obstructive uropathy. Renal ultrasound reporting moderate right-sided hydronephrosis and mild left-sided hydronephrosis no urinary retention, rule out ATN. -History of hydronephrosis, status post bilateral ureteral stents -Recently diagnosed with metastatic colonic adenocarcinoma, s/p colostomy -Metabolic acidosis secondary to acute renal failure -Chronic kidney disease, stage III secondary to obstructive uropathy, baseline creatinine 1.3-1.5 -Anemia of chronic kidney disease, iron deficiency -Hypernatremia secondary to lack of oral water intake, improving Plan: Continue on current medication regime ,monitoring and symptomatic treatment. Maintain IV fluid hydration, oral sodium bicarb. Urine cultures pending. Evaluated by urology, recommendations noted including Koehler to be changed. Close monitoring of renal function, electrolyte with repeat labs ordered for a.m. IV antibiotics as per infectious disease. Oncology recommendations noted.prognosis guarded given multiple complex medical issues. The impression and plan of care has been dictated as directed. : I performed a history and examination of this patient, discussed the same with the dictator. I agree with the dictator's note ,documented as a scribe. Any additional findings or plans will be noted.
--- NOTE | 2019-01-17 20:05 | P.PN ---
Subjective Progress Note Date: 01/16/19 Interval history:Gram-negative bacteremia; Klebsiella Klebsiella UTI Ureteral obstruction with hydronephrosis due to metastatic colon cancer 73-year-old white male well known to me. He has bilateral hydronephrosis due to metastatic colon cancer, for which he has undergone placement of bilateral ureteral stents. He has a history of incomplete bladder emptying secondary to BPH, and he has developed urinary retention. He currently has an indwelling Koehler catheter. He has been advised to have the catheter removed, and perform intermittent self-catheterization. However, he is now admitted with UTI and sepsis. 01/12/2019 Patient is seen and evaluated in the room at bedside for follow-up Vital signs remained stable with a temperature of 98.1 and blood pressure 172/84 Review of labs significant for hemoglobin of 8.0, potassium of 3.4 and BUN 14 with a creatinine of 2.0 Patient is status post bilateral ureteral stent; Koehler catheter is to be discontinued today ID is recommending to continue with IV antibiotics at this time 01/13/2019 Patient is seen and evaluated in the room at bedside; patient has no specific complaints at this time Vital signs show blood pressure of 169/84, pulse of 80 and temperature 90.8 Lab work is significant for a hemoglobin of 7.1, white blood count of 7.5, BUN of 16 and creatinine 3.46 Patient's Koehler catheter has been removed; patient has had a significant jump in his creatinine up to 3.46; urology is following and recommending abdominal ultrasound Patient remains on IV Rocephin per ID recommendation; will be switched to Cipro at time of discharge 01/14/2019 Patient is seen in follow-up; worsening acute kidney injury on chronic kidney disease, poss obstructive uropathy. Patient has chronic kidney disease stage III with baseline creatinine in the range of 1.3-1.5. Patient has history of bilateral hydronephrosis and has bilateral ureteral stents. He performs self catheterizations twice daily. He is currently also on antibiotics for UTI and bacteremia. Both blood and urine cultures are positive for Klebsiella pneumonia. Denies chest pain or shortness of breath. Bladder scan revealed no evidence of urinary retention. ID recommending to continue IV Rocephin till renal function improves and then complete antibiotic therapy with oral cipro 01/15/2019 both urine and blood cultures positive for Klebsiella pneumoniae. Maintained on Rocephin. Afebrile. Poor appetite. Denies nausea or vomiting. Renal function worsening, creatinine 5.19. Denies chest pain, palpitations or shortness of breath. Denies abdominal pain. 01/16/2019 maintained on IV antibiotics as per infectious disease .sodium climbing, up to 147. Koehler inserted yesterday, creatinine mildly improved, 4.37. Objective - Vital Signs Vital signs: Vital Signs Temp 99.0 F 01/16/19 20:45 Pulse 104 H 01/16/19 20:45 Resp 19 01/16/19 20:45 BP 188/91 01/16/19 20:45 Pulse Ox 95 01/16/19 20:45 Intake & Output 01/16/19 01/16/19 01/17/19 06:59 18:59 06:59 Intake Total 1680 1150 590 Output Total 3400 1200 800 Balance -1720 -50 -210 Intake: Intake, IV Titration 1200 750 Amount Sodium Chloride 0.45% 1, 1200 700 000 ml @ 150 mls/hr IV . Q6H40M [facility] Rx#:[id number] cefTRIAXone 2 gm In 50 Sodium Chloride 0.9% 50 ml @ 100 mls/hr IVPB Q24HR [facility] Rx#:[id number] Oral 480 400 590 Output: Urine 3400 1200 800 Straight 300 800 Other: Voiding Method Indwelling Catheter Indwelling Catheter - Exam PHYSICAL EXAM: VITAL SIGNS: [As above] GENERAL: Sitting up in bed, no acute distress HEENT: Conjunctivae normal. eyes normal. NECK: No JVD. No thyroid enlargement. No LNs CARDIOVASCULAR: S1, S2 muffled. No murmur RESPIRATION: Unlabored, Breath sounds diminished in the bases. No rhonchi or crackles. No bronchial breathing. ABDOMEN: Soft, nontender . Nondistended. Functioning colostomy. No guarding. no masses palpable. Bowel sounds heard. LEGS: No edema. no swelling PSYCHIATRY: Alert and oriented -3, mood and affect normal. NERVOUS SYSTEM: Cranial N 2-12 grossly normal. Moves all 4 limbs. Diffuse weakness No focal deficits. Skin: no ulcer no rash Joints: No active swelling. No inflammation. Lymphatic system. No LN neck axilla or groin. - Labs CBC & Chem 7: 01/15/19 09:49 01/17/19 07:32 Labs: Abnormal Lab Results - Last 24 Hours (Table) 01/16/19 Range/Units 07:58 Sodium 147 H (137-145) mmol/L Chloride 117 H (98-107) mmol/L Creatinine 4.37 H (0.66-1.25) mg/dL Magnesium 1.5 L (1.6-2.3) mg/dL Microbiology - Last 24 Hours (Table) 01/15/19 13:00 Urine Culture - Final Urine,Voided 01/10/19 13:30 Blood Culture - Final Blood No Growth after 144 hours Assessment and Plan Assessment: -Sepsis secondary to Klebsiella pneumoniae bacteremia secondary to acute UTI with Klebsiella pneumoniae. Koehler catheter has been replaced. -Acute renal failure, possible obstructive uropathy. Renal ultrasound reporting moderate right-sided hydronephrosis and mild left-sided hydronephrosis no urinary retention, rule out ATN. -History of hydronephrosis, status post bilateral ureteral stents -Recently diagnosed with metastatic colonic adenocarcinoma, s/p colostomy -Metabolic acidosis secondary to acute renal failure -Chronic kidney disease, stage III secondary to obstructive uropathy, baseline creatinine 1.3-1.5 -Anemia of chronic kidney disease, iron deficiency -Hypernatremia secondary to lack of oral water intake, improving Plan: Continue on current medication regime , oral sodium bicarb, monitoring and symptomatic treatment. Increase IV 0.45% saline rate. Urine cultures repeated. Close monitoring of renal function, electrolyte with repeat labs ordered for a.m. IV antibiotics as per infectious disease. prognosis guarded given multiple complex medical issues. Follow closely with multiple consults. The impression and plan of care has been dictated as directed. : I performed a history and examination of this patient, discussed the same with the dictator. I agree with the dictator's note ,documented as a scribe. Any additional findings or plans will be noted.
--- NOTE | 2019-01-17 20:14 | P.PN ---
Subjective Progress Note Date: 01/17/19 Interval history:Gram-negative bacteremia; Klebsiella Klebsiella UTI Ureteral obstruction with hydronephrosis due to metastatic colon cancer 73-year-old white male well known to me. He has bilateral hydronephrosis due to metastatic colon cancer, for which he has undergone placement of bilateral ureteral stents. He has a history of incomplete bladder emptying secondary to BPH, and he has developed urinary retention. He currently has an indwelling Koehler catheter. He has been advised to have the catheter removed, and perform intermittent self-catheterization. However, he is now admitted with UTI and sepsis. 01/12/2019 Patient is seen and evaluated in the room at bedside for follow-up Vital signs remained stable with a temperature of 98.1 and blood pressure 172/84 Review of labs significant for hemoglobin of 8.0, potassium of 3.4 and BUN 14 with a creatinine of 2.0 Patient is status post bilateral ureteral stent; Koehler catheter is to be discontinued today ID is recommending to continue with IV antibiotics at this time 01/13/2019 Patient is seen and evaluated in the room at bedside; patient has no specific complaints at this time Vital signs show blood pressure of 169/84, pulse of 80 and temperature 90.8 Lab work is significant for a hemoglobin of 7.1, white blood count of 7.5, BUN of 16 and creatinine 3.46 Patient's Koehler catheter has been removed; patient has had a significant jump in his creatinine up to 3.46; urology is following and recommending abdominal ultrasound Patient remains on IV Rocephin per ID recommendation; will be switched to Cipro at time of discharge 01/14/2019 Patient is seen in follow-up; worsening acute kidney injury on chronic kidney disease, poss obstructive uropathy. Patient has chronic kidney disease stage III with baseline creatinine in the range of 1.3-1.5. Patient has history of bilateral hydronephrosis and has bilateral ureteral stents. He performs self catheterizations twice daily. He is currently also on antibiotics for UTI and bacteremia. Both blood and urine cultures are positive for Klebsiella pneumonia. Denies chest pain or shortness of breath. Bladder scan revealed no evidence of urinary retention. ID recommending to continue IV Rocephin till renal function improves and then complete antibiotic therapy with oral cipro 01/15/2019 both urine and blood cultures positive for Klebsiella pneumoniae. Maintained on Rocephin. Afebrile. Poor appetite. Denies nausea or vomiting. Renal function worsening, creatinine 5.19. Denies chest pain, palpitations or shortness of breath. Denies abdominal pain. 01/16/2019 maintained on IV antibiotics as per infectious disease .sodium climbing, up to 147. Koehler inserted yesterday, creatinine mildly improved, 4.37. 01/17/2019 sodium remains at 147. Koehler remains in place, creatinine continues to improve at 3.65. Afebrile. Follow-up blood in urine cultures negative. Objective - Vital Signs Vital signs: Vital Signs Temp 97.8 F 01/17/19 12:30 Pulse 84 01/17/19 19:52 Resp 17 01/17/19 12:30 BP 170/80 01/17/19 12:30 Pulse Ox 96 01/17/19 19:44 Intake & Output 01/17/19 01/17/19 01/18/19 06:59 18:59 06:59 Intake Total 1180 2090 Output Total 3400 Balance -2220 2090 Weight 60.781 kg Intake: Intake, IV Titration 900 Amount Magnesium Sulfate-D5w Pmx 100 1 gm In Dextrose/Water 1 100ml.bag @ 100 mls/hr IVPB Q1H [facility] Rx#: [id number] Sodium Chloride 0.45% 1, 800 000 ml @ 150 mls/hr IV . Q6H40M [facility] Rx#:[id number] Oral 1180 1190 Output: Urine 3400 Straight 2700 Other: Voiding Method Indwelling Catheter Indwelling Catheter # Voids 3 - Exam PHYSICAL EXAM: VITAL SIGNS: [As above] GENERAL: Sitting up in bed, no acute distress HEENT: Conjunctivae normal. eyes normal. NECK: No JVD. No thyroid enlargement. No LNs CARDIOVASCULAR: S1, S2 muffled. No murmur RESPIRATION: Unlabored, Breath sounds diminished in the bases. No rhonchi or crackles. No bronchial breathing. ABDOMEN: Soft, nontender . Nondistended. Functioning colostomy. No guarding. no masses palpable. Bowel sounds heard. LEGS: No edema. no swelling PSYCHIATRY: Alert and oriented -3, mood and affect normal. NERVOUS SYSTEM: Cranial N 2-12 grossly normal. Moves all 4 limbs. Diffuse weakness No focal deficits. Skin: no ulcer no rash Joints: No active swelling. No inflammation. Lymphatic system. No LN neck axilla or groin. Microbiology 01/15/19 13:00 Urine,Voided Urine Culture - Final 01/10/19 13:30 Blood Blood Culture - Final No Growth after 144 hours 01/09/19 18:26 Urine,Catheterized Urine Culture - Final Klebsiella pneumoniae 01/09/19 17:41 Blood Blood Culture Gram Stain - Final 01/09/19 17:41 Blood Blood Culture - Final Klebsiella pneumoniae 01/09/19 17:41 Blood Blood Culture - Final - Labs CBC & Chem 7: 01/15/19 09:49 01/17/19 07:32 Labs: Abnormal Lab Results - Last 24 Hours (Table) 01/17/19 Range/Units 07:32 Sodium 147 H (137-145) mmol/L Potassium 3.4 L (3.5-5.1) mmol/L Chloride 112 H (98-107) mmol/L Creatinine 3.65 H (0.66-1.25) mg/dL Magnesium 1.3 L (1.6-2.3) mg/dL Microbiology - Last 24 Hours (Table) 01/15/19 13:00 Urine Culture - Final Urine,Voided 01/10/19 13:30 Blood Culture - Final Blood No Growth after 144 hours Assessment and Plan Assessment: -Sepsis secondary to Klebsiella pneumoniae bacteremia secondary to acute UTI with Klebsiella pneumoniae. Koehler catheter has been replaced. -Acute renal failure, possible obstructive uropathy. Renal ultrasound reporting moderate right-sided hydronephrosis and mild left-sided hydronephrosis no urinary retention, rule out ATN. -History of hydronephrosis, status post bilateral ureteral stents -Recently diagnosed with metastatic colonic adenocarcinoma, s/p colostomy -Metabolic acidosis secondary to acute renal failure -Chronic kidney disease, stage III secondary to obstructive uropathy, baseline creatinine 1.3-1.5 -Anemia of chronic kidney disease, iron deficiency -Hypernatremia secondary to lack of oral water intake, improving -Hypokalemia secondary to poor oral intake. Plan: Continue on current medication regime , oral sodium bicarb, monitoring and symptomatic treatment. PT/OT. Increase ambulation as tolerated. IV antibiotics as per infectious disease. IV fluids adjusted to D5W. Potassium replacements as per nephrology. Close monitoring of renal function, electrolyte with repeat labs ordered for a.m. prognosis guarded given multiple complex medical issues. Follow closely with multiple consults. The impression and plan of care has been dictated as directed. : I performed a history and examination of this patient, discussed the same with the dictator. I agree with the dictator's note ,documented as a scribe. Any additional findings or plans will be noted.
[2019-01-17] MEDS: FAMOTIDINE 20 MG TAB PO SCH (21:16)
--- NOTE | 2019-01-17 23:25 | PN ---
PROGRESS NOTE DATE OF SERVICE: 01/17/2019. REASON FOR FOLLOW UP: Klebsiella pneumoniae bacteremia secondary to . INTERVAL HISTORY: The patient is afebrile. The patient is breathing comfortably. Denies any chest pain. No shortness of breath, cough, abdominal pain, or any diarrhea. PHYSICAL EXAMINATION: Blood pressure 166/85 with a pulse of 83, temperature 98.2. He is 99% on 2 L nasal cannula. General description is an elderly male lying in bed in no distress. Respiratory system: Unlabored breathing. Clear to auscultation anteriorly. Heart S1, S2. Regular rate and rhythm. Abdomen soft, no tenderness. LABS: BUN of 15, creatinine 3.60. DIAGNOSTIC IMPRESSION AND PLAN: Patient with Klebsiella pneumonia bacteremia secondary to urinary source. The patient currently on Rocephin that will be transitioned to oral Cipro for another 7-8 days on discharge with close outpatient followup. Continue supportive care. MMODL / IJN: [id number] /
[2019-01-18] MEDS: DEXTROSE 5% IN WATER 1,000 ML IV SCH ×2 (05:42→08:12)
[2019-01-18 06:37] VITALS: RESP 16
[2019-01-18 08:06] LABS: Calcium 8.4 mg/dL (8.4-10.2); Magnesium 1.9 mg/dL (1.6-2.3); Potassium 3.9 mmol/L (3.5-5.1)
[2019-01-18] MEDS: HEPARIN SODIUM,PORCINE 5,000 UNIT/ML 1 ML VIAL SQ SCH (08:11)
[2019-01-18] MEDS: SODIUM BICARBONATE TAB 650 MG TAB PO SCH (08:11)
--- NOTE | 2019-01-18 08:33 | P.PN ---
Subjective Patient is seen in follow-up for acute kidney injury on chronic kidney disease. Patient has chronic kidney disease stage III with baseline creatinine in the range of 1.3-1.5. Patient has history of bilateral hydronephrosis and has bilateral ureteral stents. He performs self catheterizations twice daily. However due to worsening renal function and hydronephrosis on renal ultrasound, Koehler catheter was inserted on January 15. Renal function is also improved. Creatinine 3.03 today. He is currently also on antibiotics for UTI and bacteremia. Both blood and urine cultures are positive for Klebsiella pneumonia. Denies chest pain or shortness of breath. Vital signs are stable. General: The patient appeared well nourished and normally developed. HEENT: Head exam is unremarkable. Neck is without jugular venous distension. LUNGS: Lungs are clear to auscultation and percussion. Breath sounds decreased. HEART: Rate and Rhythm are regular. First and second heart sounds normal. No murmurs, rubs or gallops. ABDOMEN: Abdominal exam reveals normal bowel sounds. Non-tender and non- distended. No evidence of peritonitis. EXTREMITITES: No clubbing, cyanosis, or edema. Objective - Vital Signs Vital signs: Vital Signs Temp 98.4 F 01/18/19 05:00 Pulse 74 01/18/19 05:00 Resp 16 01/18/19 05:00 BP 180/84 01/18/19 06:37 Pulse Ox 97 01/18/19 05:00 Intake & Output 01/17/19 01/18/19 01/18/19 18:59 06:59 18:59 Intake Total 2090 1150 Output Total 2900 600 Balance 2090 -1750 -600 Weight 60.781 kg Intake: Intake, IV Titration 900 1150 Amount Dextrose 5% in Water 1, 1150 000 ml @ 100 mls/hr IV . Q10H [facility] Rx#:[id number] Magnesium Sulfate-D5w Pmx 100 1 gm In Dextrose/Water 1 100ml.bag @ 100 mls/hr IVPB Q1H [facility] Rx#: [id number] Sodium Chloride 0.45% 1, 800 000 ml @ 150 mls/hr IV . Q6H40M [facility] Rx#:[id number] Oral 1190 Output: Urine 2900 600 Other: Voiding Method Indwelling Catheter Indwelling Catheter Indwelling Catheter - Labs CBC & Chem 7: 01/15/19 09:49 01/18/19 06:55 Labs: Abnormal Lab Results - Last 24 Hours (Table) 01/17/19 01/18/19 Range/Units 07:32 06:55 Sodium 147 H (137-145) mmol/L Potassium 3.4 L (3.5-5.1) mmol/L Chloride 112 H 110 H (98-107) mmol/L Creatinine 3.65 H 3.03 H (0.66-1.25) mg/dL Magnesium 1.3 L (1.6-2.3) mg/dL Assessment and Plan Plan: Assessment: 1. Acute kidney injury secondary to obstructive uropathy. Renal ultrasound revealed moderate right-sided hydronephrosis and mild left-sided hydronephrosis. No evidence of urinary retention. Creatinine peaked at 5.19 this admission and is 3.03 today. Koehler catheter inserted January 15. Urinalysis shows no protein. Urine eosinophils negative. 2. History of hydronephrosis status post bilateral ureteral stents placement. Case discussed with urology. He appears to have a high pressure bladder leading to reflux. Appears to be improving post-Koehler catheter insertion. 3. Metastatic colon cancer. 4. Klebsiella pneumoniae bacteremia and UTI maintain on antibiotics. Infectious disease following. 5. Metabolic acidosis secondary to acute kidney injury and IV fluids. better. 6. Chronic kidney disease stage III with baseline creatinine in the range of 1.3-1.5 secondary to obstructive uropathy. 7. Anemia of chronic kidney disease. Iron deficiency noted. 8. Hypernatremia secondary to lack of oral water intake and post obstructive diuresis. Better. 9. Hypokalemia secondary to hypomagnesemia and postobstructive diuresis. Improved post replacement. 10. Hypomagnesemia from poor oral intake and diuresis. Improved post replacement. Plan: Decrease rate of D5W to 75 cc/hr. Maintain oral sodium bicarbonate. Avoid nephrotoxins. Hold off on IV iron due to bacteremia. Repeat electrolytes in the morning. Stable to be discharged from nephrology standpoint. Follow up outpatient in the next 1-2 weeks.
[2019-01-18] MEDS: IPRATROPIUM-ALBUTEROL 3 ML NEB INHALATION SCH ×2 (09:03→12:38)
[2019-01-18 11:55] VITALS: BP 177/86; PULSE 90; TEMP 98.5
--- NOTE | 2019-01-18 13:52 | PN ---
PROGRESS NOTE DATE OF SERVICE: 01/18/2019 REASON FOR FOLLOWUP: Klebsiella bacteremia, secondary to urinary source. INTERVAL HISTORY: The patient is currently afebrile. Patient is breathing comfortably. Denies having any chest pain or any cough. No abdominal pain. No nausea, vomiting or any diarrhea. PHYSICAL EXAMINATION: Blood pressure is 177/86, pulse of 90, temperature 98.5. He is 92%. General description is an elderly male, up in the bed in no distress. RESPIRATORY SYSTEM: Unlabored breathing, clear to auscultation anteriorly. HEART: S1, S2. Regular rate and rhythm. ABDOMEN: Soft, no tenderness. LABS: Creatinine is down to 3.03. DIAGNOSTIC IMPRESSION AND PLAN: Patient with Klebsiella bacteremia, secondary catheter-associated urinary tract infection that was discontinued. However, the patient did have worsening of his creatinine after discontinuation of Koehler catheter and self-catheterization. Has a Koehler that has to be reinserted. Patient currently covered with Rocephin, will be transitioned to oral Cipro 250 twice a day for another week to finish a course of therapy with close outpatient followup. MMODL / IJN: [id number] /
== END 2019-01-18 14:01 | disposition home health service (06) | DRG 698 ==
LOC: EC 16:49 → 3NMEDONC 19:52
PROVIDERS: ADMIT Hospitalist; ATTEND Hospitalist
DX: T83.518A Infection and inflammatory reaction due to other urinary catheter, initial encounter (principal); A41.59 Other Gram-negative sepsis; N39.0 Urinary tract infection, site not specified; N17.9 Acute kidney failure, unspecified; E87.0 Hyperosmolality and hypernatremia; E87.2 Acidosis; N13.8 Other obstructive and reflux uropathy; C18.9 Malignant neoplasm of colon, unspecified; N13.1 Hydronephrosis with ureteral stricture, not elsewhere classified; C78.00 Secondary malignant neoplasm of unspecified lung; C77.2 Secondary and unspecified malignant neoplasm of intra-abdominal lymph nodes; C78.6 Secondary malignant neoplasm of retroperitoneum and peritoneum; D63.1 Anemia in chronic kidney disease; E83.42 Hypomagnesemia; E87.6 Hypokalemia; N40.1 Benign prostatic hyperplasia with lower urinary tract symptoms; N18.3 Chronic kidney disease, stage 3 (moderate); Y84.6 Urinary catheterization as the cause of abnormal reaction of the patient, or of later complication, without mention of misadventure at the time of the procedure; Z87.891 Personal history of nicotine dependence; Z79.899 Other long term (current) drug therapy; Z93.3 Colostomy status; Z82.5 Family history of asthma and other chronic lower respiratory diseases; Z87.440 Personal history of urinary (tract) infections; Z90.49 Acquired absence of other specified parts of digestive tract; Z92.21 Personal history of antineoplastic chemotherapy
CPT/HCPCS: 36415; 71045; 71046; 76770; 80048; 80053; 81001; 82378; 82728; 83540; 83550; 83605; 83735; 85025; 85610; 85730; 87040; 87077; 87086; 87186; 87205; 87502; 93005; 94640; 94760; 96361; 96365; 96375; 99285

== ENCOUNTER → 2019-03-12 | Day surgery (SDC) | payer MEDICARE ==
[~2019-03-12] MED LIST: LIDOCAINE 1% INJ 10MG/ML (20 ML MDV) SQ ONE; SODIUM CHLORIDE 0.9% 500 ML 500 ML IV ONE; fentaNYL (PF) 50 MCG/ML 2 ML AMP IV ONE
[2019-03-12 14:04] VITALS: RESP 18; TEMP 98
[2019-03-12 15:35] VITALS: BP 152/69; PULSE 60
--- NOTE | 2019-03-13 09:22 | IR ---
Nephrostomy tube exchange HISTORY: Leaking nephrostomy tube PROCEDURE: Patient's indwelling right-sided nephrostomy tube was prepped and draped in a sterile fashion. Lidoca ine used for local anesthesia. Gentle hand injection of contrast material was performed under fluoros copic observation. Based on the findings, 0.035 inch angle Glidewire was advanced into and a similar 8 [place] tube was advanced over the wire and fixed in place. Spot image obtained verifying placement. Maximal barrier technique was utilized. The patient remained in stable condition was discharged to [facility]. No bleeding. 2.4 minutes fluoroscopy time. 884 intraoperative images. IMPRESSION: Status post fluoroscopic guided nephrostomy tube exchange, this procedure performed by selena alvarez.
== END ==
LOC: OR 13:18
PROVIDERS: ATTEND Radiology Diagnostic Radiology
DX: T83.032A Leakage of nephrostomy catheter, initial encounter (principal); C18.9 Malignant neoplasm of colon, unspecified; C79.9 Secondary malignant neoplasm of unspecified site; N40.1 Benign prostatic hyperplasia with lower urinary tract symptoms; R33.8 Other retention of urine; Z85.118 Personal history of other malignant neoplasm of bronchus and lung; Z86.19 Personal history of other infectious and parasitic diseases; Z87.891 Personal history of nicotine dependence; Z79.899 Other long term (current) drug therapy
CPT/HCPCS: 50435; C1729; C1769 ×2; J2001; J3010

== ENCOUNTER 2019-03-16 11:47 | Emergency (ER) | payer MEDICARE ==
[2019-03-16 11:58] VITALS: BP 109/77; PULSE 66; RESP 18; TEMP 97.5
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
--- NOTE | 2019-03-16 13:22 | XR ---
EXAMINATION TYPE: XR KUB , ONE VIEW DATE OF EXAM ORDERED: 03/16/2019 HISTORY: Pain. COMPARISON: Previous study dated 11/13/2018. FINDINGS: The lung bases are clear. There are double-J stents present in both ureters. There is silhouetting of the stents are not in the usual position and they may be an ileal conduit. Only one of these was present previously. There is no evidence of obstruction or free air. There are scattered air-fluid levels. IMPRESSION: 1. BILATERAL URETERAL STENTS LIKELY AN ILEAL CONDUIT. 2. I CANNOT EXCLUDE A MILD ILEUS.
== END 2019-03-16 15:08 | disposition left against medical advice (07) ==
LOC: EC 11:47
DX: N99.522 Malfunction of incontinent external stoma of urinary tract (principal); Z87.891 Personal history of nicotine dependence; Z79.899 Other long term (current) drug therapy; Z85.038 Personal history of other malignant neoplasm of large intestine; Z85.118 Personal history of other malignant neoplasm of bronchus and lung; Z92.21 Personal history of antineoplastic chemotherapy; Z96.0 Presence of urogenital implants
CPT/HCPCS: 74018; 99284